=== PATIENT | female | born 1995 | race Caucasian/White ===

== ENCOUNTER → 2019-02-23 | Outpatient (CLI) | payer SELFPAY ==
--- NOTE | 2019-02-23 06:40 | MRI_ITS ---
STUDY: MRI RIGHT KNEE REASON FOR EXAM: Medial knee pain, injury 02/20/2019, 2 prior surgeries: lateral release and plica removal. TECHNIQUE: Standardized fat and water weighted pulse sequences were obtained in all 3 orthogonal planes. COMPARISON: None. FINDINGS: Normal medial meniscus. Normal hyaline cartilage of the medial femorotibial compartment. Normal medial femoral condyle and tibial plateau. There is a mild sprain of the proximal medial collateral ligament (T2 coronal image 17). Normal distal semimembranosus, gracilis and semitendinosus tendons. Normal lateral meniscus. Normal hyaline cartilage of the lateral femorotibial compartment. There is a mild bone contusion of the posterior aspect of the lateral femoral condyle (T2 sagittal images 6, 7). Normal proximal tibiofibular articulation. Normal lateral collateral (fibular) ligament. Normal popliteus tendon. Normal biceps femoris tendon. Normal anterior cruciate ligament (ACL). Normal posterior cruciate ligament (PCL). Normal congruent patellofemoral articulation. Normal hyaline cartilage of the patellofemoral compartment. There are postoperative changes of the lateral patellar retinaculum. Normal visualized quadriceps tendon. Normal patellar tendon. There is postoperative scarring in Hoffa's fat pad. There is a minimal volume of fluid in the knee joint. The soft tissues are unremarkable. The otherwise visualized osseous structures are unremarkable. MRI/Lower Ext Joint Only (Routine) IMPRESSION: Mild sprain of the medial collateral ligament. Mild bone contusion of the lateral femoral condyle. Electronically Signed: Edy Moreira MD at 8:33 EDT Tel , Service support ,
== END | disposition home or self-care (01) ==
PROVIDERS: Family Provider Family Medicine; PCP Family Medicine; Referring Provider Physician Assistant; Visit Provider Physician Assistant
DX: S83.8X1A Sprain of other specified parts of right knee, initial encounter (principal)
CPT/HCPCS: 73721

== ENCOUNTER → 2021-04-01 | Outpatient (CLI) | payer OTHER, SELFPAY ==
[2021-04-01 14:42] VITALS: BMI 21.6
[2021-04-08 16:31] LABS: HPV Reflexed? NOT INDICATED
== END | disposition home or self-care (01) ==
PROVIDERS: PCP Family Medicine; Referring Provider Nurse Practitioner Women's Health; Visit Provider Nurse Practitioner Women's Health
DX: Z12.4 Encounter for screening for malignant neoplasm of cervix (principal)
CPT/HCPCS: 88175; G0145

== ENCOUNTER 2021-05-06 21:40 | Outpatient (RCR) | payer OTHER, SELFPAY | END 2021-05-30 23:59 | LOC: EMPH 21:40 | PROVIDERS: PCP Family Medicine; Visit Provider Family Medicine Geriatric Medicine | DX: Z03.818 Encounter for observation for suspected exposure to other biological agents ruled out (principal) | CPT/HCPCS: 87426 ==

== ENCOUNTER → 2021-08-04 10:18 | Outpatient (CLI) | payer OTHER, SELFPAY | PROVIDERS: PCP Family Medicine; Referring Provider Nurse Practitioner Women's Health; Visit Provider Nurse Practitioner Women's Health | DX: N97.0 Female infertility associated with anovulation (principal) | CPT/HCPCS: 36415 ==

== ENCOUNTER → 2021-08-22 10:00 | Outpatient (CLI) | payer OTHER, SELFPAY ==
[2021-08-22 11:45] LABS: Progesterone Level 5.68 ng/mL (See Comment)
== END ==
PROVIDERS: PCP Family Medicine; Referring Provider Nurse Practitioner Women's Health; Visit Provider Nurse Practitioner Women's Health
DX: N97.0 Female infertility associated with anovulation (principal)
CPT/HCPCS: 36415; 84144

== ENCOUNTER 2021-09-30 11:45 | Outpatient (CLI) | payer OTHER, SELFPAY ==
--- NOTE | 2021-09-30 12:25 | RAD_ITS ---
STUDY: HYSTEROSALPINGOGRAM. REASON FOR EXAM: Female, 26 years old. ENCOUNTER FOR PROCREATIVE MANAGEMENT, UNSPECIFIED Z31.9 FLUOROSCOPY TIME (if supplied): ( 15 seconds ) minutes/seconds. 2 images were obtained. TECHNIQUE: A hysterosalpingogram was performed by the pcb design engineer. Imaging was provided. COMPARISON: None. FINDINGS: The uterus is unremarkable. Both fallopian tubes are patent with free spill. RAD/Salpingogram IMPRESSION: Both fallopian tubes are patent with free spill. Electronically Signed: Ross Valerio MD at 14:05 EST ,
--- NOTE | 2021-09-30 16:37 | OP.PCM_ITS ---
Problems Associated Problem List Diagnoses (1) Infertility: Operative Report Date of Procedure: 09/30/21 Preop diagnosis: Infertility Postop diagnosis: Same plus bilateral tubal patency Procedure: Hysterosalpingogram Surgeon: Chani Bone Implantable devices: None Complications: None Findings: Bilateral tubal patency and normal uterine cavity Operative details: Patient was taken to the x-ray room and was placed on the x- ray table and was in the dorsal lithotomy position. Speculum was placed in the vagina and the cervix prepped with Betadine and the HSG catheter was easily introduced into the uterus and speculum removed. Radiologist was brought in and while pushing radiopaque dye into the uterus via the HSG catheter the radiologist took multiple images and views and confirmed bilateral tubal patency seen. No gross uterine filling defects or abnormalities were seen. All instruments removed from the vagina and the uterus without complication. Patient tolerated the procedure well. Multi Select Codes Urinary/Genital Urinary/Genital CPT Codes: 29536 HSG/SIS
== END 2021-09-30 23:59 | disposition short-term general hospital (02) ==
LOC: RAD 11:46
PROVIDERS: PCP Family Medicine; Referring Provider Obstetrics & Gynecology; Visit Provider Obstetrics & Gynecology
DX: N97.9 Female infertility, unspecified (principal)
CPT/HCPCS: 58340; 74740; Q9967

== ENCOUNTER 2021-10-03 10:24 | Outpatient (CLI) | payer OTHER, SELFPAY ==
[2021-10-03 10:47] LABS: Absolute Lymphocyte Count 1.99 X10^3/uL (0.83-4.51); Absolute Neutrophil Count 3.2 X10^3/uL (2.0-7.7); Basophil# 0.06 X10^3/uL; Eosinophil# 0.38 X10^3/uL; Eosinophils% 6.3 % (0-5); Hematocrit 40.9 % (37-47); Hemoglobin 13.5 g/dL (12.0-15.0); Lymphocyte # 1.99 X10^3/ul (0.83-4.51); Lymphocyte % 32.8 % (19-41); Mean Corpuscular Hgb 30.1 pg (27.0-32.0); Mean Corpuscular Volume 91.1 fL (81-99); Mean Platelet Vol. 9.3 fl (6.2-12.0); Monocyte# 0.42 X10^3/uL; Monocyte% 6.9 % (0-10); NRBC Flagged by Analyzer 0 % (0-5); Neutrophil # 3.19 X10^3/uL (2.7-7.7); Neutrophil % 52.7 % (47-70); Platelet Count 282 K/mm3 (150-450); RBC Distribution Width SD 40.2 fl (35.1-43.9); Red Blood Count 4.49 M/mm3 (4.2-5.4); White Blood Count 6.1 K/mm3 (4.4-11.0)
[2021-10-03 11:14] LABS: T4 Free Direct 1.01 ng/dL (0.76-1.46); Thyroid Stim Hormone (TSH) 1.31 uIU/mL (0.358-3.74)
== END 2021-10-03 23:59 | disposition short-term general hospital (02) ==
PROVIDERS: Nurse Practitioner Women's Health; PCP Family Medicine; Referring Provider Obstetrics & Gynecology; Visit Provider Obstetrics & Gynecology
DX: N92.6 Irregular menstruation, unspecified (principal); N93.9 Abnormal uterine and vaginal bleeding, unspecified
CPT/HCPCS: 36415; 84439; 84443; 85025

== ENCOUNTER → 2022-05-19 | Outpatient (CLI) | payer OTHER, SELFPAY ==
[2022-05-19 16:17] LABS: Absolute Lymphocyte Count 2.58 X10^3/uL (0.83-4.51); Absolute Neutrophil Count 9.2 X10^3/uL (2.0-7.7); Basophil# 0.06 X10^3/uL; Basophil% 0.5 % (0-1); Eosinophil# 0.66 X10^3/uL; Hemoglobin 13.1 g/dL (12.0-15.0); Lymphocyte # 2.58 X10^3/ul (0.83-4.51); Lymphocyte % 19.5 % (19-41); Mean Corp Hgb Conc 34.5 g/dL (32-36); Mean Corpuscular Hgb 31.3 pg (27.0-32.0); Mean Corpuscular Volume 90.7 fL (81-99); Mean Platelet Vol. 9.3 fl (6.2-12.0); Monocyte# 0.66 X10^3/uL; NRBC Flagged by Analyzer 0 % (0-5); Neutrophil # 9.22 X10^3/uL (2.7-7.7); Neutrophil % 69.6 % (47-70); Platelet Count 289 K/mm3 (150-450); RBC Distribution Width CV 11.9 % (11.6-14.6); RBC Distribution Width SD 39.5 fl (35.1-43.9); Red Blood Count 4.19 M/mm3 (4.2-5.4); White Blood Count 13.2 K/mm3 (4.4-11.0)
[2022-05-19 17:05] LABS: NATERA MAILED SPECIMEN
[2022-05-19 18:23] LABS: Amphetamine Urine VISTA NEGATIVE (<1000 ng/mL); Barbiturate Urine VISTA NEGATIVE (< 200 ng/mL); Benzodiazepine Urine VISTA NEGATIVE (< 200 ng/mL); Cocaine Urine VISTA NEGATIVE (< 300 ng/mL); Ecstacy Urine VISTA NEGATIVE (< 500 ng/mL); Methadone Urine VISTA NEGATIVE (< 300 ng/mL); PCP Urine VISTA NEGATIVE (< 25 ng/mL); THC Urine VISTA NEGATIVE (< 50 ng/mL); Vista UDS pH Range 6
[2022-05-20 09:04] LABS: HIV - WCH Non-Reactive (Nonreactive); Hepatitis B Surface Antigen Non-Reactive (Nonreactive); Hepatitis C Antibody Non-Reactive (Nonreactive); Rubella IgG Reactive (Nonreactive); Syphilis Antibodies Non-reactive
[2022-05-21 22:07] LABS: Chlamydia By Nucleic Acid AMP Negative (Negative)
[2022-05-22 08:26] LABS: Gonococcus By Nucleic Acid AMP Negative (Negative)
== END | disposition home or self-care (01) ==
PROVIDERS: PCP Family Medicine; Referring Provider Obstetrics & Gynecology; Visit Provider Obstetrics & Gynecology
DX: O09.91 Supervision of high risk pregnancy, unspecified, first trimester (principal); Z3A.00 Weeks of gestation of pregnancy not specified
CPT/HCPCS: 36415; 80307; 85025; 86703; 86762; 86780; 86803; 86850; 86900; 86901; 87086; 87340; 87491; 87591

== ENCOUNTER → 2022-06-16 | Outpatient (CLI) | payer OTHER, SELFPAY | END | disposition home or self-care (01) | PROVIDERS: PCP Family Medicine; Referring Provider Registered Nurse; Visit Provider Registered Nurse | DX: Z36.9 Encounter for antenatal screening, unspecified (principal) | CPT/HCPCS: 36415 ==

== ENCOUNTER 2022-07-16 07:50 | Outpatient (CLI) | payer OTHER, SELFPAY ==
--- NOTE | 2022-07-16 07:51 | US_ITS ---
STUDY: SECOND AND THIRD TRIMESTER OBSTETRICAL ULTRASOUND REASON FOR EXAM: Female, 27 years old anatomy LMP: 02/28/2022. TECHNIQUE: Transabdominal and Transvaginal TECHNICAL QUALITY: Adequate. PRIOR ULTRASOUND: None. FINDINGS: There is a single intrauterine fetus. The fetus is in a breech presentation. There is demonstrated cardiac activity with a heart rate of 137 bpm. There is a normal amniotic fluid volume. The largest amniotic fluid pocket measures 4.7 cm x 4.3 cm. The amniotic fluid index (JORDAN) is within normal limits. The placenta is anterior in location and is not low lying. There are Grade 0 placental changes. The cervix measures 3.9 cm in length. The bilateral adnexal regions are normal. BIOMETRY: BPD: 4.39 cm: 19 weeks, 2 days HC: 17.24 cm: 19 weeks, 6 days AC: 13.92 cm: 19 weeks, 2 days FL: 3.17 cm: 9 weeks, 6 days CI: 72% FL/BPD: 72% FL/HC: FL/AC: 23% HC/AC: 1.24 age by current US: 19 weeks, 4 days. KELSEY by current US: 12/06/2022. Estimated weight: 298 grams, +/- 45 grams, 35 %. Age by LMP: 19 weeks, 5 days. KELSEY by LMP: 12/05/2022. ANATOMY: Gender: Female Cranium: Normal lateral ventricles. Normal choroid plexus. Normal cerebellum. Normal cisterna magna. Normal face, nose and lips. Chest: Normal 4-chamber heart. Abdomen/Pelvis: Normal diaphragm. Normal stomach. Normal abdominal wall. Normal cord insertion. Normal 3 vessel cord. Normal kidneys. Normal bladder. Spine: Normal cervical spine. Normal thoracic spine. Normal lumbar spine. Normal sacrum. Extremities: Normal bilateral upper extremities. Normal bilateral lower extremities. IMPRESSION: Single live intrauterine gestation with a mean gestational age of 19 weeks and 4 days. Electronically Signed: Ross Valerio MD at 15:04 EST , STUDY: FIRST TRIMESTER OBSTETRICAL ULTRASOUND REASON FOR EXAM: Female, 27 years old . Cervical length measurement. LMP: 02/28/2022 TECHNIQUE: Transvaginal TECHNICAL QUALITY: Adequate. PRIOR ULTRASOUND: None. FINDINGS: Cervical length measures 3.9 cm. US/OB Anatomy Scan IMPRESSION: Cervical length measures 3.9 cm. Electronically Signed: Ross Valerio MD at 15:05 EST ,
== END 2022-07-16 23:59 | disposition home or self-care (01) ==
LOC: OPUS 07:50
PROVIDERS: PCP Family Medicine; Visit Provider Obstetrics & Gynecology
DX: O09.91 Supervision of high risk pregnancy, unspecified, first trimester (principal); Z3A.00 Weeks of gestation of pregnancy not specified
CPT/HCPCS: 76805; 76817

== ENCOUNTER 2022-08-22 18:55 | Outpatient (CLI) | payer OTHER, SELFPAY ==
[2022-08-22 19:13] VITALS: BMI 25.5
[2022-08-22 19:21] VITALS: TEMP 37.2
[2022-08-22 19:22] VITALS: BP 106/62; PULSE 88; PULSE 89; O2SAT 99
[2022-08-22 20:24] LABS: Color, Urine Yellow (Yellow); Glucose, Dipstick Normal (Normal); Ketone-Dipstick Negative (Negative); Leukocyte Esterase-Dipstick 100 /ul (Negative); Nitrite-Dipstick Negative (Negative); Occult Blood-Urine Negative /ul (Negative); Protein-Dipstick Negative (Negative); Urine Bilirubin Dipstick Negative (Negative); Urine Clarity Clear (Clear); Urine Urobilinogen Normal (Normal)
--- NOTE | 2022-08-22 21:09 | OB.TRI.HP_ITS ---
HPI - General General Date of Admission: 09/22/22 HPI Narrative HIEU HERNANDEZ, is a 27 y/o @ 25 weeks gestation who presents to L&D triage for evaluation of lower abdominal discomfort. She denies loss of fluid, vaginal bleeding, contractions, or decreased movement. Maternal Data Information KELSEY Calculator Estimated Delivery Date Method Current WG Current Estimate 12/05/22 LMP (Certain) 26w 6d Other Estimates 12/01/22 Ultrasound #1 27w 3d PFSH PFSH Home Medications docosahexaenoic acid 200 mg capsule ( DHA) mg PO 04/01/21 [History Last Taken Unknown] lactobacillus combination no.4 3 billion cell capsule (Probiotic) 3,000 mmu cells PO DAILY Check with primary doctor 05/19/22 [History Last Taken 08/21/22 21:30] famotidine 40 mg tablet (Pepcid) 40 mg PO QHS #30 tabs 08/21/22 [Rx Last Taken Unknown] Allergy/AdvReac Type Severity Reaction Status Date / Time No Known Allergies Allergy Verified 08/22/22 19:35 Family History Grandfather Lung cancer Surgical History H/O knee surgery Social History household members: spouse current occupational status: employed current occupation: [employer] - [place] history of recent travel: No sexually active: Yes Smoking Status: Never smoker alcohol intake: current alcohol intake frequency: holidays/special occasions only details: not while substance use type: does not use caffeine: Yes what type of physical activity do you participate in: walking seatbelt use: always do you feel safe at home: Yes additional social history: - Elian History 1 Elective abortions Hx Para Spontaneous abortions Hx # Term Pregnancies Ectopic pregnancies Hx # Pregnancies Multiple births # of living children Visit Details Expected Delivery Route/Plan Labor Preferences- CB/BF classes: planning, and just breathe labor support person: Elian labor intervention preferences: minimal intervention, hydrotherapy. fine with touch. pain management options preferred: avoid if all possible. cut cord/dad catch: yes : yes PP control planned: discussed possible routes of delivery and associated risks: [] special requests: [] Plans Covid status: declined Flu vaccine: discussed, declined Tdap vaccine: [] Rhogam: [] LARC form signed: [] Problem list reviewed and updated with the most current plan of care details and appropriate orders placed. Relevant counseling for the gestational age provided. Continue routine care and follow up unless otherwise noted in visit notes/problem list details OB Flowsheet Initial Weight: Not Recorded Date -?-?-?-?-?-?-?-?-?-?-?-?- EGA Weight BP Urine Prot -?-?-?-?-?-?-?-?-?-?-?-?- Glucose FHR FuHt Pres Dilation -?-?-?-?-?-?-?-?-?-?-?-?- Effaced St Visit Note 05/19/22 -?-?-?-?-?-?-?-?-?-?-?-?- 11w 3d 151 lb 106/68 -?-?-?-?-?-?-?-?-?-?-?-?- 160 -?-?-?-?-?-?-?-?-?-?-?-?- SM- CRL 5.8cm co ns with LMP 06/16/22 -?-?-?-?-?-?-?-?-?-?-?-?- 15w 3d 154 lb 4 oz 114/67 Nega tive -?-?-?-?-?-?-?-?-?-?-?-?- Negative 143 16 -?-?-?-?-?-?-?-?-?-?-?-?- LC- no vb/crampi ng. normal NOB labs. discussed and accepted AFP. to start Mg oxide for headaches. anatomy scheduled. 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 08/11/22 -?-?-?-?-?-?-?-?-?-?-?-?- 23w 3d 168 lb 122/78 Negative -?-?-?-?-?-?-?-?-?-?-?-?- Negative 140 23 -?-?-?-?-?-?-?-?-?-?-?-?- SM- discussed GC T screening options patient may elect for [place] due to not wanting dye. SM- discussed GCT screening options patient may elect for [place] due to not wanting dye. discussed birthing preferences ROS Constitutional Constitutional: Reports systems reviewed and no addt'l complaints, except as documented Gastrointestinal Gastrointestinal: Denies bloating, constipation, cramping, diarrhea, nausea or vomiting Genitourinary Genitourinary: Reports other Details: Denies vaginal odor, vaginal bleeding, or vaginal discharge ; Denies difficulty urinating or flank pain NST FHR Rate Baby A Baseline: 140 Variability:: Moderate Accelerations:: 15 x 15 Decelerations:: None NST Reactive:: Yes FHR Category:: Category I Assessment & Plan (1) : QUALIFIERS: Weeks of gestation: 19 weeks Qualified Code(s): Z3A.19 - 19 weeks gestation of COMMENT: carrier non significant done at [facility]. NIPT low risk (2) Supervision of high risk in first trimester: COMMENT: PRR KELSEY 12/05/22 girl WrenSpouse: Elian (3) UTI in , antepartum: COMMENT: culture pending. will start macrobid based on symptoms and 100+ leuks in UA PLAN: dc home with macrobid until culture comes back at least pt feels comfortable with this plan and feels better with tylenol Charges/Coding Multi Select Codes Urinary/Genital Urinary/Genital CPT Codes: 08626-82 non-stress test Interp
[2022-08-22] MEDS: Nitrofurantoin Macrocrystals 100 MG Capsule PO (21:12)
== END 2022-08-22 21:15 | disposition home or self-care (01) ==
LOC: WPOUT 19:04 → WP 19:04
PROVIDERS: PCP Family Medicine; Visit Provider Obstetrics & Gynecology
DX: O23.42 Unspecified infection of urinary tract in pregnancy, second trimester (principal); R51.9 Headache, unspecified; Z3A.25 25 weeks gestation of pregnancy
CPT/HCPCS: 59025; 59050; 81002; 87086; 99218; G0378

== ENCOUNTER → 2022-09-04 | Outpatient (CLI) | payer OTHER, SELFPAY ==
--- NOTE | 2022-09-04 08:18 | US_ITS ---
STUDY: ABDOMINAL ULTRASOUND - RIGHT UPPER QUADRANT REASON FOR VISIT: Female, 27 years old ruq pain-27 wks preg TECHNIQUE: Ultrasound evaluation of the right upper quadrant was performed with real-time and static duncan-scale imaging. TECHNICAL QUALITY: Adequate. COMPARISON: None. FINDINGS: Liver: The liver measures 15.3 cm. There is normal echogenicity of the liver. The bile ducts are within normal limits. There is hepatic color flow. The direction of portal flow is hepatopetal. There is no demonstrated mass lesion. Gallbladder: Normal distended gallbladder. The gallbladder wall measures 2 mm. There is a negative sonographic Palm''s sign. There is no pericholecystic fluid. There is biliary sludge dependent within the gallbladder. Common Bile Duct (C.B.D.): The common bile duct measures 3 mm. Pancreas: Normal size of the head, body and tail of the pancreas. There is normal echogenicity of the pancreas. There is no demonstrated pancreatic mass or cyst. Right Kidney: Normal size of the right kidney. The right kidney measures 11.0 cm. Normal renal cortex. The right cortex measures 1.5 cm. There is no demonstrated renal mass or cyst. There is no right hydronephrosis. US/Abdomen Limited IMPRESSION: Gallbladder sludge. Electronically Signed: Barry Piña MD at 9:10 EST ,
== END | disposition home or self-care (01) ==
LOC: US 08:13
PROVIDERS: PCP Family Medicine; Referring Provider Registered Nurse; Visit Provider Registered Nurse
DX: R10.11 Right upper quadrant pain (principal); O09.90 Supervision of high risk pregnancy, unspecified, unspecified trimester
CPT/HCPCS: 76705

== ENCOUNTER → 2022-09-09 | Outpatient (CLI) | payer OTHER, SELFPAY ==
[2022-09-09 09:24] LABS: Absolute Lymphocyte Count 1.66 X10^3/uL (0.83-4.51); Absolute Neutrophil Count 10.7 X10^3/uL (2.0-7.7); Basophil# 0.07 X10^3/uL; Basophil% 0.5 % (0-1); Eosinophil# 0.32 X10^3/uL; Eosinophils% 2.3 % (0-5); Hemoglobin 11.5 g/dL (12.0-15.0); Lymphocyte # 1.66 X10^3/ul (0.83-4.51); Mean Corp Hgb Conc 32.9 g/dL (32-36); Mean Corpuscular Hgb 30.9 pg (27.0-32.0); Mean Corpuscular Volume 94.1 fL (81-99); Monocyte# 0.78 X10^3/uL; Monocyte% 5.6 % (0-10); NRBC Flagged by Analyzer 0 % (0-5); Neutrophil # 10.71 X10^3/uL (2.7-7.7); Neutrophil % 77.4 % (47-70); Platelet Count 249 K/mm3 (150-450); RBC Distribution Width CV 12.7 % (11.6-14.6); RBC Distribution Width SD 43.8 fl (35.1-43.9); Red Blood Count 3.72 M/mm3 (4.2-5.4); White Blood Count 13.8 K/mm3 (4.4-11.0)
[2022-09-09 09:33] LABS: Glucose Challenge Gest 1H 50g 122 mg/dL (70-140)
[2022-09-09 11:02] LABS: HIV - WCH Non-Reactive (Nonreactive); Syphilis Antibodies Non-reactive
== END | disposition home or self-care (01) ==
LOC: PAVLAB 09:01
PROVIDERS: PCP Family Medicine; Referring Provider Obstetrics & Gynecology; Visit Provider Obstetrics & Gynecology
DX: O09.91 Supervision of high risk pregnancy, unspecified, first trimester (principal); Z13.1 Encounter for screening for diabetes mellitus
CPT/HCPCS: 36415; 82950; 85025; 86703; 86780

== ENCOUNTER → 2022-09-18 | Outpatient (CLI) | payer OTHER, SELFPAY ==
--- NOTE | 2022-09-18 12:20 | US_ITS ---
STUDY: SECOND AND THIRD TRIMESTER OBSTETRICAL ULTRASOUND - LIMITED REASON FOR EXAM: Female, 27 years old Nuchal cord LMP: 02/28/2022. PRIOR ULTRASOUND: Comparison is made with prior study 07/16/2022. TECHNIQUE: Transabdominal TECHNICAL QUALITY: Adequate. FINDINGS: There is a single intrauterine fetus. The fetus is in a cephalic presentation. There is demonstrated cardiac activity with a heart rate of 148 bpm. There is a normal amniotic fluid volume. The largest amniotic fluid pocket measures 15.5 cm. The amniotic fluid index (JORDAN) is 15.5 cm. The placenta is anterior in location and is not low lying. There are Grade 1 placental changes. The cervix measures 3.4 cm in length. There is evidence of a complete nuchal cord. BIOMETRY: BPD: 7.3 cm: 29 weeks, 1 days HC: 27.1 cm: 29 weeks, 4 days AC: 25.1 cm: 29 weeks, 2 days FL: 5.5 cm: 28 weeks, 6 days Age by LMP: 28 weeks, 6 days. KELSEY by LMP: 12/06/2019. age by prior US: 28 weeks, 5 days. KELSEY by prior US: 12/06/2022. age by current US: 29 weeks, 0 days. KELSEY by current US: 12/04/2022. Estimated weight: 1356 grams, +/- 203 grams, 50 percentile. US/OB Limited With Biometrics IMPRESSION: Single live intrauterine gestation with a mean gestational age of 28 weeks and 5 days and measurements obtained today. The measurements obtained today fall within the normal expected range. Complete nuchal cord. Electronically Signed: Ross Valerio MD at 14:54 EST ,
== END | disposition home or self-care (01) ==
PROVIDERS: PCP Family Medicine; Visit Provider Nurse Practitioner Women's Health
DX: Z34.93 Encounter for supervision of normal pregnancy, unspecified, third trimester (principal); Z3A.28 28 weeks gestation of pregnancy
CPT/HCPCS: 76816

== ENCOUNTER 2022-09-21 14:35 | Outpatient (CLI) | payer OTHER, SELFPAY ==
[2022-09-21 14:59] VITALS: BP 107/62; PULSE 94; TEMP 37.1; O2SAT 98
[2022-09-21 15:05] VITALS: BMI 27.4
[2022-09-21 15:36] LABS: Color, Urine Straw (Yellow); Glucose, Dipstick Normal (Normal); Ketone-Dipstick Negative (Negative); Leukocyte Esterase-Dipstick Negative /ul (Negative); Nitrite-Dipstick Negative (Negative); Occult Blood-Urine Negative /ul (Negative); Protein-Dipstick Negative (Negative); Specific Gravity, Urine 1.005 (1.002-1.030); Urine Bilirubin Dipstick Negative (Negative); Urine Clarity Clear (Clear); Urine Urobilinogen Normal (Normal)
--- NOTE | 2022-09-21 16:00 | OB.TRI.HP_ITS ---
HPI - General HPI Narrative HIEU HERNANDEZ, is a 27 F who presents at 29+2 with mild vaginal bleeding and cramping. noticed red bleeding while wiping. does not fill a pad, no clots noted. no recent sexual activity. + movement. no lof. Maternal Data Information KELSEY Calculator Estimated Delivery Date Method Current WG Current Estimate 12/05/22 LMP (Certain) 29w 5d Other Estimates 12/01/22 Ultrasound #1 30w 2d PFSH PFSH Home Medications docosahexaenoic acid 200 mg capsule ( DHA) mg PO 04/01/21 [History Last Taken Unknown] lactobacillus combination no.4 3 billion cell capsule (Probiotic) 3,000 mmu cells PO DAILY Check with primary doctor 05/19/22 [History Last Taken 08/21/22 21:30] famotidine 40 mg tablet (Pepcid) 40 mg PO QHS #30 tabs 08/21/22 [Rx Last Taken Unknown] Allergy/AdvReac Type Severity Reaction Status Date / Time No Known Allergies Allergy Verified 09/22/22 14:21 Family History Grandfather Lung cancer Surgical History H/O knee surgery Social History household members: spouse current occupational status: employed current occupation: [employer] - [place] history of recent travel: No sexually active: Yes Smoking Status: Never smoker alcohol intake: current alcohol intake frequency: holidays/special occasions only details: not while substance use type: does not use caffeine: Yes what type of physical activity do you participate in: walking seatbelt use: always do you feel safe at home: Yes additional social history: - Elian History 1 Elective abortions Hx Para Spontaneous abortions Hx # Term Pregnancies Ectopic pregnancies Hx # Pregnancies Multiple births # of living children Visit Details Expected Delivery Route/Plan Labor Preferences- CB/BF classes: planning, and just breathe labor support person: Elian labor intervention preferences: minimal intervention, hydrotherapy. fine with touch. pain management options preferred: avoid if all possible. cut cord/dad catch: yes : yes PP control planned: discussed possible routes of delivery and associated risks: [] special requests: [] Plans Covid status: declined Flu vaccine: discussed, declined Tdap vaccine: declines Rhogam: NA LARC form signed: yes Problem list reviewed and updated with the most current plan of care details and appropriate orders placed. Relevant counseling for the gestational age provided. Continue routine care and follow up unless otherwise noted in visit notes/problem list details OB Flowsheet Initial Weight: Not Recorded Date -?-?-?-?-?-?-?-?-?-?-?-?- EGA Weight BP Urine Prot -?-?--?-?-?-?-?-?-?-?-?-?- Glucose FHR FuHt Pres Dilation -?-?-?-?-?-?-?-?--?-?-?-?- Effaced St Visit Note 05/19/22 -?-?-?-?-?-?-?-?-?-?-?-?- 11w 3d 151 lb 106/68 -?-?-?-?-?-?-?-?-?-?-?-?- 160 -?-?-?-?-?-?-?-?-?-?-?-?- SM- CRL 5.8cm co ns with LMP 06/16/22 -?-?-?-?-?-?-?-?-?-?-?-?- 15w 3d 154 lb 4 oz 114/67 Nega tive -?-?-?-?-?-?-?-?-?-?-?-?- Negative 143 16 -?-?-?-?-?-?-?-?-?-?-?-?- LC- no vb/crampi ng. normal NOB labs. discussed and accepted AFP. to start Mg oxide for headaches. anatomy scheduled. 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 08/11/22 -?-?-?-?-?-?-?-?-?-?-?-?- 23w 3d 168 lb 122/78 Negative -?-?-?-?-?-?-?-?-?-?-?-?- Negative 140 23 -?-?-?-?-?-?-?-?-?-?-?-?- SM- discussed GC T screening options patient may elect for [place] due to not wanting dye. SM- discussed GCT screening options patient may elect for [place] due to not wanting dye. discussed birthing preferences 09/09/22 -?-?-?-?-?-?-?-?-?-?-?-?- 27w 4d 170 lb 2 oz 98/66 Nega tive -?-?-?-?-?-?-?-?-?-?-?-?- Negative 145 27 -?-?-?-?-?-?-?-?-?-?-?-?- -No Vb, LOF. G ood FM. Doing kick cts due to nuchal cord on cosmetic US. [facility] US ordered to confirm. Larc. Normal 28 wk labs 09/22/22 -?-?-?-?-?-?-?-?-?-?-?-?- 29w 3d 177 lb 8 oz 118/72 Nega tive -?-?-?-?-?-?-?-?-?-?-?-?- Negative 146 30 -?-?-?-?-?-?-?-?-?-?-?-?- MH-NO VB since p rior to WP visit yesterday. Good FM. Reviewed US w/nuchal cord. Enc kick counts NST FHR Rate Baby A Baseline: 130-140 Variability:: Moderate Accelerations:: 10 x 10 Decelerations:: None NST Reactive:: Yes FHR Category:: Category I Uterine Activity:: no ctx noted Assessment & Plan (1) Vaginal bleeding during : PLAN: Patient presents for triage evaluation secondary to mild/scant vaginal bleeding FHT: Moderate variability reactive no decelerations category I tracing [place]: no Contractions Assessment and plan: Reactive NST, reassuring maternal and status patient discharged to home to follow-up in office. See problem list details for additional plan information. bleeding precautions provided. no further bleeding. reactive NST. to follow up in office if continues.
== END 2022-09-21 16:10 | disposition home or self-care (01) ==
LOC: WPOUT 14:48 → WP 14:49
PROVIDERS: PCP Family Medicine; Visit Provider Registered Nurse
DX: O99.891 Other specified diseases and conditions complicating pregnancy (principal); O46.90 Antepartum hemorrhage, unspecified, unspecified trimester; R25.2 Cramp and spasm
CPT/HCPCS: 59025; 59050; 81002

== ENCOUNTER → 2022-11-12 | Outpatient (CLI) | payer OTHER, SELFPAY ==
--- NOTE | 2022-11-12 10:09 | US_ITS ---
STUDY: ULTRASOUND BREAST - RIGHT REASON FOR EXAM: Female, 27 years old. Palpable lump, patient TECHNIQUE: Axial and longitudinal images of the RIGHT breast were performed with a high resolution ultrasound transducer. # OF IMAGES: 9 COMPARISON: None. FINDINGS: RIGHT Breast: Focused sonographic evaluation the area of concern shows only normal dense fibroglandular tissue. There is no suspicious shadowing solid lesion, architectural distortion, or clustered shadowing calcifications. US/Breast Limited Unilateral IMPRESSION: No suspicious sonographic findings ASSESSMENT CATEGORY: BIRADS Category 1: Negative. A letter regarding these results will be sent to the patient by the facility within 30 days. Electronically Signed: Brian Nash MD at 11:11 EDT ,
== END | disposition home or self-care (01) ==
PROVIDERS: PCP Family Medicine; Referring Provider Obstetrics & Gynecology; Visit Provider Obstetrics & Gynecology
DX: O09.91 Supervision of high risk pregnancy, unspecified, first trimester (principal); Z3A.00 Weeks of gestation of pregnancy not specified; O92.29 Other disorders of breast associated with pregnancy and the puerperium
CPT/HCPCS: 76642; 87081

== ENCOUNTER 2022-11-25 18:50 | Outpatient (CLI) | payer OTHER, SELFPAY ==
[2022-11-25 18:58] VITALS: BMI 29.2
[2022-11-25 19:02] VITALS: BP 102/55; PULSE 99; TEMP 36.7; O2SAT 99
--- NOTE | 2022-11-26 07:56 | OB.TRI.PN ---
Progress Notes Date of Service: 11/25/22 Progress Note: Patient presents for triage evaluation secondary to decreased movement FHT: 135 Moderate variability reactive no decelerations category I tracing [place]: no Contractions Assessment and plan: Reactive NST, reassuring maternal and status patient discharged to home to follow-up at next appointment. See problem list details for additional plan information. Charges/Coding Procedures Urinary/Genital [id number]: No Charge Multi Select Codes Urinary/Genital Urinary/Genital CPT Codes: 24089-32 non-stress test Interp Assessment & Plan (1) : QUALIFIERS: Weeks of gestation: 37 weeks Qualified Code(s): Z3A.37 - 37 weeks gestation of COMMENT: GBS negative. carrier non significant done at I. NIPT low risk . nl anatomy. PLAN: follow up at next appointment (2) Supervision of high risk in first trimester: COMMENT: PRR KELSEY 12/05/22 girl WrenSpouse: Elian
[2022-12-04 03:35] VITALS: BP 122/82; PULSE 99
[2022-12-04 03:37] VITALS: TEMP 36.6; O2SAT 100
[2022-12-04 03:44] VITALS: PULSE 107; O2SAT 100
== END 2022-11-25 19:47 | disposition home or self-care (01) ==
LOC: WPOUT 18:55 → WP 18:55
PROVIDERS: PCP Family Medicine; Visit Provider Advanced Practice Midwife
DX: O36.8130 Decreased fetal movements, third trimester, not applicable or unspecified (principal); Z3A.37 37 weeks gestation of pregnancy
CPT/HCPCS: 59025; 59050; 99221; G0378

== ENCOUNTER 2022-12-04 04:45 | Inpatient (IN) | payer OTHER, SELFPAY ==
[2022-12-04] VITALS (49 sets, daily range): BP systolic 102–153; BP diastolic 56–79; PULSE 74–113; RESP 16–18; TEMP 36.2–37.2; O2SAT 98–100; BMI 29.1
[2022-12-04] MEDS: Lactated Ringers 1,000 ML 50 ML IV (05:00)
[2022-12-04 06:00] LABS: Absolute Lymphocyte Count 2.49 X10^3/uL (0.83-4.51); Basophil# 0.09 X10^3/uL; Basophil% 0.5 % (0-1); Eosinophil# 0.42 X10^3/uL; Eosinophils% 2.4 % (0-5); Hematocrit 39.6 % (37-47); Hemoglobin 13.1 g/dL (12.0-15.0); Lymphocyte # 2.49 X10^3/ul (0.83-4.51); Lymphocyte % 14.2 % (19-41); Mean Corp Hgb Conc 33.1 g/dL (32-36); Mean Corpuscular Hgb 30.8 pg (27.0-32.0); Mean Corpuscular Volume 93.2 fL (81-99); Mean Platelet Vol. 9.7 fl (6.2-12.0); Monocyte# 1.12 X10^3/uL; Monocyte% 6.4 % (0-10); NRBC Flagged by Analyzer 0 % (0-5); Neutrophil # 13.04 X10^3/uL (2.7-7.7); Neutrophil % 74.4 % (47-70); Platelet Count 309 K/mm3 (150-450); RBC Distribution Width CV 12.8 % (11.6-14.6); Red Blood Count 4.25 M/mm3 (4.2-5.4); White Blood Count 17.5 K/mm3 (4.4-11.0)
--- NOTE | 2022-12-04 07:26 | HP.PCM.OB_ITS ---
HPI - General General Date of Admission: 12/04/22 Date of Service: 12/04/22 HPI Narrative HIEU HERNANDEZ, is a 27 F at 39.6 weeks who presents for SROM at 0030 this am. Maternal Data Information KELSEY Calculator Estimated Delivery Date Method Current WG Current Estimate 12/05/22 LMP (Certain) 39w 6d Other Estimates 12/01/22 Ultrasound #1 40w 3d Final KELSEY: 12/05/22 Final KELSEY Source: US >20 weeks Gestational age: 39 weeks 6 days PFSH PFSH no medical history Home Medications lactobacillus combination no.4 3 billion cell capsule (Probiotic) 3,000 mmu cells PO DAILY Check with primary doctor 05/19/22 [History Last Taken 12/03/22] breast pump #1 ea 11/05/22 [Rx Last Taken Unknown] magnesium 200 mg tablet 200 mg PO DAILY 11/25/22 [History Last Taken 12/03/22] [id number] 1 mg tablet 1 tab PO DAILY 12/04/22 [History Last Taken 12/03/22] Allergy/AdvReac Type Severity Reaction Status Date / Time No Known Allergies Allergy Verified 11/28/22 10:00 Family History Grandfather Lung cancer Surgical History H/O knee surgery Social History household members: spouse current occupational status: employed current occupation: [employer] - [employer] [facility] [place] history of recent travel: No sexually active: Yes Smoking Status: Never smoker alcohol intake: current alcohol intake frequency: holidays/special occasions only details: not while substance use type: does not use caffeine: Yes what type of physical activity do you participate in: walking seatbelt use: always do you feel safe at home: Yes additional social history: - Elian History 1 Elective abortions Hx Para 0 Spontaneous abortions Hx # Term Pregnancies Ectopic pregnancies Hx # Pregnancies Multiple births # of living children Visit Details Expected Delivery Route/Plan Labor Preferences- CB/BF classes: planning, and just breathe labor support person: Elian labor intervention preferences: minimal intervention, hydrotherapy. fine with touch. pain management options preferred: avoid if all possible. cut cord/dad catch: yes : yes PP control planned: discussed possible routes of delivery and associated risks: [] special requests: [] Plans Covid status: declined Flu vaccine: discussed, declined Tdap vaccine: declines Rhogam: NA LARC form signed: yes Problem list reviewed and updated with the most current plan of care details and appropriate orders placed. Relevant counseling for the gestational age provided. Continue routine care and follow up unless otherwise noted in visit notes/problem list details OB Flowsheet Initial Weight: Not Recorded Date -?-?-?-?-?-?-?-?-?-?-?-?- EGA Weight BP Urine Prot -?-?-?-?-?-?-?-?-?-?-?-?- Glucose FHR FuHt Pres Dilation -?-?-?-?-?-?-?-?-?-?-?-?- Effaced St Visit Note 05/19/22 -?-?-?-?-?-?-?-?-?-?-?-?- 11w 3d 151 lb 106/68 -?-?-?-?-?-?-?-?-?-?-?-?- 160 -?-?-?-?-?-?-?-?-?-?-?-?- SM- CRL 5.8cm co ns with LMP 06/16/22 -?-?-?-?-?-?-?-?-?-?-?-?- 15w 3d 154 lb 4 oz 114/67 Nega tive -?-?-?-?-?-?-?-?-?-?-?-?- Negative 143 16 -?-?-?-?-?-?-?-?-?-?-?-?- LC- no vb/crampi ng. normal NOB labs. discussed and accepted AFP. to start Mg oxide for headaches. anatomy scheduled. 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 08/11/22 -?-?-?-?-?-?-?-?-?-?-?-?- 23w 3d 168 lb 122/78 Negative -?-?-?-?-?-?-?-?-?-?-?-?- Negative 140 23 -?-?-?-?-?-?-?-?-?-?-?-?- SM- discussed GC T screening options patient may elect for lemon false pass due to not wanting dye. SM- discussed GCT screening options patient may elect for lemon false pass due to not wanting dye. discussed birthing preferences 09/09/22 -?-?-?-?-?-?-?-?-?-?-?-?- 27w 4d 170 lb 2 oz 98/66 Nega tive -?-?-?-?-?-?-?-?-?-?-?-?- Negative 145 27 -?-?-?-?-?-?-?-?-?-?-?-?- MH-No Vb, LOF. Ryland aj FM. Doing kick cts due to nuchal cord on cosmetic US. [facility] US ordered to confirm. Mario Alberto. Normal 28 wk labs 09/22/22 -?-?-?-?-?-?-?--?-?-?-?-?- 29w 3d 177 lb 8 oz 118/72 Nega tive -?-?-?-?-?-?-?-?-?-?-?-?- Negative 146 30 -?-?-?-?-?-?-?-?-?-?-?-?- MH-NO VB since p rior to visit yesterday. Good FM. Reviewed US w/nuchal cord. Enc kick counts 10/06/22 -?-?-?-?-?-?-?-?-?-?-?-?- 31w 3d 176 lb 104/63 Negative -?-?-?-?-?-?-?-?-?-?-?-?- Negative 145 31 -?-?-?-?-?-?-?-?-?-?-?-?- Sm no vb lof goo d fm no rgular ctx 10/21/22 -?-?-?-?-?-?-?-?-?-?-?-?- 33w 4d 180 lb 4 oz 110/68 Nega tive -?-?-?-?-?-?-?-?-?-?-?-?- Negative 158 33 -?-?-?-?-?-?-?-?-?-?-?-?- MH-No VB,LOF. Go od FM. Denies concerns 11/05/22 -?-?-?--?-?-?-?-?-?-?-?-?- 35w 5d 183 lb 2 oz 110/72 Nega tive -?-?-?-?-?-?-?-?-?-?-?-?- Negative 144 36 -?-?-?-?-?-?-?-?-?-?-?-?- JV- no lof, vagi nal bleeding, or dec fm. pt feels a pea size lump on left breast. if feels somewhat solid and measures about 2mm in size to right of the right nipple. 11/12/22 -?-?-?-?-?-?-?-?-?-?-?-?- 36w 5d 185 lb 2 oz 107/71 Nega tive -?-?-?-?-?-?-?-?-?-?-?-?- Negative 143 36 Cephalic -?-?-?-?-?-?-?-?-?-?-?-?- LC- no lof/vb/ct x. good fm. obtaining breast us today. declined VE. LC- no lof/vb/ctx. good fm. obtaining breast us today. declined VE. GBS obtained 11/19/22 -?-?-?-?-?-?-?-?-?-?-?-?- 37w 5d 188 lb 6 oz 123/70 Nega tive -?-?-?-?-?-?-?-?-?-?-?-?- Negative 145 37 Cephalic -?-?-?-?-?-?-?-?-?-?-?-?- KW-no lof/vb. so me ctx noted over the last week. +FM. declined VE. GBS neg. labor precautions reviewed. 11/28/22 -?-?-?-?-?-?-?-?-?-?-?-?- 39w 0d 188 lb 6 oz 114/74 Nega tive -?-?-?-?-?-?-?-?-?-?-?-?- Negative 145 39 Cephalic -?-?-?-?-?-?-?-?-?-?-?-?- SM- no vb lof go od fm no regular ctx 12/04/22 -?-?-?-?-?-?-?-?-?-?-?-?- 39w 6d 191 lb 9.307 oz 117/ 74 130/77 -?-?-?-?-?-?-?-?-?-?-?-?- -?-?-?-?-?-?-?-?-?-?-?-?- NST FHR Rate Baby A Baseline: 140 Variability:: Moderate Accelerations:: 15 x 15 Decelerations:: None NST Reactive:: Yes FHR Category:: Category I Uterine Activity:: every 4-5 minutes ROS Constitutional Constitutional: Denies change in weight, fatigue, fever(s), headache(s), poor appetite or weakness Eyes Eyes: Denies blurry vision, change in vision, floaters, seeing flashes or spots in vision ENT HEENT: Denies dizziness, headache(s), loss taste/smell or sore throat Cardiovascular Cardiovascular: Denies chest pain, dizziness, dyspnea, irregular heart rhythm, lightheadedness, palpitations or rapid heart rate Respiratory/Chest Respiratory/Chest: Denies change in mental status, chest tightness, cough, dyspnea or breast pain Gastrointestinal Gastrointestinal: Denies anorexia, chewing difficulty, constipation, diarrhea or weight changes Genitourinary Genitourinary: Denies difficulty urinating, dysuria, flank pain, genital pain, urinary frequency or urinary urgency Musculoskeletal Musculoskeletal: Denies back pain, difficulty walking, extremity pain, joint pain, muscle cramps or muscle weakness Integumentary Integumentary: Denies lesions or unusual bruising Neurologic Neurologic: Denies abnormal movements, abnormal speech, dizziness, numbness, seizure-like activity, syncope or weakness Psychiatric Psychiatric: Denies behavioral changes, change in appetite, confusion, depression, homicidal ideation, suicidal ideation or suicidal thoughts Endocrine Endocrinology: Denies excessive sweating, polydipsia or polyuria Hematologic/Lymphatic Hematologic/Lymphatic: Denies anemia Allergic/Immunologic Allergic/Immunologic: Denies itchy eyes, lip swelling, throat swelling, tongue swelling or wheezing Vital Signs Vital Signs Vital Signs: 12/04/22 05:40 12/04/22 05:40 12/04/22 05:39 Temperature Temperature Source Tympanic Pulse Rate 74 Blood Pressure 117/74 BP Systolic 117 BP Diastolic 74 Pulse Ox 12/04/22 05:39 12/04/22 05:39 12/04/22 07:11 Temperature 97.8 F Temperature Source Pulse Rate Blood Pressure 130/77 H BP Systolic 130 BP Diastolic 77 Pulse Ox 100 12/04/22 07:11 12/04/22 07:10 12/04/22 07:09 Temperature Temperature Source Temporal Pulse Rate 88 Blood Pressure BP Systolic BP Diastolic Pulse Ox 98 12/04/22 07:09 Temperature 98.2 F Temperature Source Pulse Rate Blood Pressure BP Systolic BP Diastolic Pulse Ox Weight Weight: 191 lb 9.307 oz Body Mass Index (BMI) 29.1 Physical Exam Const alert, oriented x3 and no apparent distress General Appearance: cooperative Orientation / Consciousness: awake HEENT normocephalic Neck full ROM Lymph Lymphatic: no lymphadenopathy noted Chest inspection of chest normal Resp normal respiratory effort and normal air movement Effort and Inspection: able to speak in complete sentences and symmetric chest movement GI soft to palpation and non-tender Inspection: gravid Palpation: soft; Negative for tender external exam normal Manual OB Exam: estimated gestational size appropriate, presentation cephalic, dilated 5, effaced 80 and station -2 Amniotic Fluid: clear amniotic fluid and ROM+plus positive + Back/Spine normal to inspection Extremity normal to inspection and full ROM Skin no rashes or lesions noted Psych mental status grossly normal Appearance: grossly normal Speech: normal speech Labs Labs Labs: Blood Type O POSITIVE Antibody Screen NEGATIVE Hct 39.6 % (37-47) Hgb 13.1 g/dL (12.0-15.0) Obstetrics US Syphilis Total Ab Non-reactive Rubella IgG Antibody Reactive (Nonreactive) Hep Bs Antigen Non-Reactive (Nonreactive) Chlamydia DNA ([facility]) Negative (Negative) Neisseria gonorrhoeae DNA ([facility]) Negative (Negative) HIV 1&2 Antibody Non-Reactive (Nonreactive) Glucose 1 Hr 50 gm 122 mg/dL (70-140) Miscellaneous Test Assessment & Plan (1) : QUALIFIERS: Weeks of gestation: 39 weeks Qualified Code(s): Z3A.39 - 39 weeks gestation of COMMENT: GBS negative. carrier non significant done at [facility]. NIPT low risk . nl anatomy. (2) Supervision of high risk in first trimester: COMMENT: PRR KELSEY 12/05/22 girl WrenSpouse: Elian (3) Spontaneous rupture of amniotic membranes: COMMENT: 39.6 weeks (4) Spontaneous onset of labor: PLAN: Patient presents IAL with SROM, plan expectant management for , nipple stimulation, pitocin/AROM PRN if needed. Pain management: plans no epidural. GBS negative. Management of any complications: none I have reviewed the [facility] and made any clinically relevant updates. Plan of care reviewed with Dr Bone, she agrees with plan of care. Charges/Coding Procedures Urinary/Genital [id number]: No Charge
[2022-12-04 07:28] LABS: Syphilis Antibodies Non-reactive
[2022-12-04 08:06] LABS: ROM Patient Test POSITIVE (Negative)
[2022-12-04 08:09] LABS: ROM Internal Control Test YES-OK TO RESULT pt. (Internal QC)
--- NOTE | 2022-12-04 10:04 | PN_ITS ---
Progress Note Patient coping well with contractions. Desire unmedicated . Using Nitrious Oxide. 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
[2022-12-04] MEDS: LACTATED RINGERS 500 ML 999 ML IV (12:40)
[2022-12-04] MEDS: Lactated Ringers 1,000 ML 200 ML IV ×2 (13:15→15:24)
[2022-12-04] MEDS: fentaNYL-bupivacaine (epidural) 100 ML BAG EPIDURAL (13:34)
[2022-12-04] MEDS: Oxytocin 15 Units/NS 250ml 15 UNITS/250 ML IV.SOLN 2 UNITS IV (14:43)
--- NOTE | 2022-12-04 17:11 | OP.PCM_ITS ---
Assessment & Plan (1) Vaginal delivery: COMMENT: NICOLE/ELLIOT SROM 39.6 weeks Girl Sophie Breast Maternal Data Information KELSEY Calculator Estimated Delivery Date Method Current WG Current Estimate 12/05/22 LMP (Certain) 39w 6d Other Estimates 12/01/22 Ultrasound #1 40w 3d Final KELSEY: 12/05/22 Final KELSEY Source: US >20 weeks Gestational age: 39 weeks 6 days Vaginal Delivery Maternal Presentation Maternal Presentation: Spontaneous Rupture of Membranes Maternal Presentation: Patient began pushing and delivered the head in the RUDY presentation. The head was delivered atraumatically and a loose nuchal cord ?1 was identified and easily reduced over the infant's head. The anterior and posterior shoulders delivered without complication followed by the rest of the and the infant was placed on the maternal abdomen. Delayed cord clamping was employed for approximately 60 seconds. Cord was clamped and cut and gentle traction was applied to the cord and the placenta delivered spontaneously immediately following it was noted to be intact with three-vessel cord. The perineum and vagina were inspected and noted to have a first degree laceration, was repaired in usual fashion with a 3-0 Rapide. EBL was 100 cc. Patient and tolerated delivery well. Apgars 8/9 Operative Information Date of Procedure: 12/04/22 Pre-Operative Diagnosis: vaginal delivery of Post-Operative Diagnosis: vaginal delivery of Surgery / Procedure Performed: Spontaneous Vaginal Delivery Type of Anesthesia: Epidural Estimated Blood Loss: 100 Findings Presentation: Vertex Amniotic Membrane Rupture Type: Spontaneous Time of Membrane Rupture: 0030 Amniotic Fluid Description: Clear Placental Delivery Description: Spontaneous Placenta Disposition: [facility] Cord Vessel Description: 3 Vessels Cord Entanglement: Around neck x 1, loose Nuchal Cord Compression: Without compression Infant A Gender: Female (1 minute): 8 (5 minute): 9 Delayed Cord Clamping: Yes Post Vaginal Delivery Medications Given After Delivery: IV Pitocin Laceration: Perineal Extension/lac and 1st degree Complication Complications: None Multi Select Codes Urinary/Genital Urinary/Genital CPT Codes: 46772 Vaginal Delivery [facility]
[2022-12-04] MEDS: Oxytocin 15 Units/NS 250ml 15 UNITS/250 ML IV.SOLN 83 UNITS IV (17:15)
--- NOTE | 2022-12-04 17:20 | DCINST_ITS ---
Discharge Instructions Diet Discharge Diet: No restrictions Activity Discharge Activity: Return to Normal Activity May resume sexual activity in: 6-8 weeks Dressing / Incision Call your doctor if you observe: Fever of 101 or Higher, Coldness, Increased Pain, Numbness or Tingling, Change in Color, Inability to urinate, Inability to have a bowel movement, Using more than 1 pad per hour, Shortness of breath, Dizziness, Fainting spells, Swelling in the ankles, Chest pain, Increased palpitations (irregular heartbeat), Calf discomfort and Uncontrolled pain Follow Up Care Please Follow Up With: Lynnette Prado CNM When: Please call the office to schedule your follow up appointment in 6 weeks. If you had high blood pressure please call to schedule an appointment in 2 weeks. Test Results: Test results from this visit will be discussed in further detail at your follow- up appointment, if applicable. Discharge Plan Admission Admit Date/Time: 12/04/22 04:45 Attending Provider: Lynnette Prado Primary Care Provider: Rodrigo Ortiz Discharge Orders/Prescriptions Prescriptions: No Action Probiotic 3 billion cell capsule 3,000 mmu cells PO DAILY Rx Instructions: administer with a meal (DME) breast pump Device See Rx Instructions miscellaneous .MEDSUPPLY Qty: 1 0RF Rx Instructions: As directed magnesium 200 mg Tablet 200 mg PO DAILY 1 mg Tablet 1 tab PO DAILY Referrals / Follow Up: Rodrigo Ortiz DO [Primary Care Provider] -
[2022-12-04] MEDS: Acetaminophen 500 MG Tablet 1000 MG PO (20:26)
[2022-12-05] VITALS (11 sets, daily range): BP systolic 110–116; BP diastolic 56–70; PULSE 83–106; RESP 16–18; TEMP 36.4–37.2; O2SAT 82–99
[2022-12-05] MEDS: Naproxen 500 MG Tablet PO ×2 (04:08→16:31)
--- NOTE | 2022-12-05 07:37 | PCM.PN.OB ---
Subjective Subjective Patient doing well without complaints. Tolerating PO. Ambulating and voiding without difficulty. feeding well. Denies chest pain, shortness of breath, calf pain/swelling, fevers, chills, lightheadedness. Objective Data Objective Data Vital Signs: Vital Signs Temp Pulse Resp BP Pulse Ox O2 Del Method 98.5 F 85 16 112/64 82 Room Air 12/05/22 07:29 12/05/22 07:30 12/05/22 07:29 12/05/22 07:30 12/05/22 07:31 12/05/22 07:29 Oxygen Delivery Method Room Air Weight: 191 lb 9.307 oz Body Mass Index (BMI) 29.1 Intake & Output: Intake and Output for Last 24 Hours 12/03/22 12/04/22 12/05/22 23:59 23:59 23:59 Intake Total 1477.72 / 1477.72 Output Total 1500 / 1500 Balance -22.28 / -22.28 Lab / Micro Data Result Diagrams: 12/04/22 05:00 Labs: Laboratory Results - last 24 hr 12/04/22 03:20: Vag Amniotic Fld Detect POSITIVE H ROS Constitutional Constitutional: Reports systems reviewed and no addt'l complaints, except as documented Cardiovascular Cardiovascular: Reports systems reviewed and no addt'l complaints, except as documented Respiratory/Chest Respiratory/Chest: Reports systems reviewed and no addt'l complaints, except as documented Gastrointestinal Gastrointestinal: Reports systems reviewed and no addt'l complaints, except as documented Physical Exam Const alert, oriented x3 and no apparent distress HEENT Head and Scalp: atraumatic Resp normal respiratory effort GI soft to palpation and non-tender Bimanual Exam - Vag & Uterus: uterus non-tender Uterus Palpation: uterus fundus firm (below Umbilicus) Assessment & Plan (1) Vaginal delivery: COMMENT: KW/SM SROM 39.6 weeks Girl Sophie Breast PLAN: Plan s/p PPD # 1 1. routine post delivery care 2. breast feeding- support given 3. rh positive 4. rubella immune
[2022-12-05] MEDS: Senna/Docusate Sodium 1 Tablet PO (07:47)
[2022-12-05] MEDS: Acetaminophen 500 MG Tablet 1000 MG PO ×2 (07:47→20:29)
[2022-12-06 02:32] VITALS: BP 91/46; PULSE 82; RESP 20
[2022-12-06] MEDS: Naproxen 500 MG Tablet PO (04:09)
--- NOTE | 2022-12-06 06:17 | PCM.PN.OB ---
Subjective Subjective Patient doing well without complaints. Tolerating PO. Ambulating and voiding without difficulty. feeding well. Denies chest pain, shortness of breath, calf pain/swelling, fevers, chills, lightheadedness. Objective Data Objective Data Vital Signs: Vital Signs Temp Pulse Resp BP Pulse Ox O2 Del Method 97.6 F L 82 20 H 91/46 L 99 Room Air 12/05/22 15:49 12/06/22 02:32 12/06/22 02:32 12/06/22 02:32 12/05/22 15:49 12/06/22 02:32 Oxygen Delivery Method Room Air Weight: 191 lb 9.307 oz Body Mass Index (BMI) 29.1 Intake & Output: Intake and Output for Last 24 Hours 12/04/22 12/05/22 12/06/22 23:59 23:59 23:59 Intake Total 1477.72 / 1477.72 Output Total 1500 / 1500 Balance -22.28 / -22.28 Lab / Micro Data Result Diagrams: 12/04/22 05:00 ROS Constitutional Constitutional: Reports systems reviewed and no addt'l complaints, except as documented Cardiovascular Cardiovascular: Reports systems reviewed and no addt'l complaints, except as documented Respiratory/Chest Respiratory/Chest: Reports systems reviewed and no addt'l complaints, except as documented Gastrointestinal Gastrointestinal: Reports systems reviewed and no addt'l complaints, except as documented Physical Exam Const alert, oriented x3 and no apparent distress HEENT Head and Scalp: atraumatic Resp normal respiratory effort GI soft to palpation and non-tender Bimanual Exam - Vag & Uterus: uterus non-tender Uterus Palpation: uterus fundus firm (below Umbilicus) Assessment & Plan (1) Vaginal delivery: COMMENT: KW/SM SROM 39.6 weeks Girl [place] Breast PLAN: Plan s/p PPD # 2 1. routine post delivery care 2. breast feeding- support given 3. rh positive 4. rubella immune
--- NOTE | 2022-12-06 06:18 | PCM.DC.SUM ---
Providers Date of Admission: 12/04/22 Primary Care Physician: Dr. Rodrigo Ortiz DO Reason For Visit: VAG DELIVERY Diagnosis Discharge Diagnosis (1) Vaginal delivery: Status: Acute Code(s): O80 - Encounter for full-term uncomplicated delivery Plan s/p PPD # 2 1. routine post delivery care 2. breast feeding- support given 3. rh positive 4. rubella immune Medications at Discharge Home Medications lactobacillus combination no.4 3 billion cell capsule (Probiotic) 3,000 mmu cells PO DAILY Check with primary doctor 05/19/22 breast pump #1 ea 11/05/22 magnesium 200 mg tablet 200 mg PO DAILY 11/25/22 [id number] 1 mg tablet 1 tab PO DAILY 12/04/22 Hospital Course Summary of Care Provided Hospital Course: presented IAL delivered uncomplicated routine recovery discharged on ppd2 Weight / BMI Weight Weight: 191 lb 9.307 oz Body Mass Index (BMI) 29.1 ABG / Lab / Microbiology Data Result Diagrams: 12/04/22 05:00 D/C Instructions Discharge Diet: No restrictions May resume sexual activity in: 6-8 weeks Call your doctor if you observe: Fever of 101 or Higher, Coldness, Increased Pain, Numbness or Tingling, Change in Color, Inability to urinate, Inability to have a bowel movement, Using more than 1 pad per hour, Shortness of breath, Dizziness, Fainting spells, Swelling in the ankles, Chest pain, Increased palpitations (irregular heartbeat), Calf discomfort and Uncontrolled pain Please Follow Up With: Lynnette Prado CNM When: Please call the office to schedule your follow up appointment in 6 weeks. If you had high blood pressure please call to schedule an appointment in 2 weeks. Meaningful Use Info Meaningful Use Diagnoses (Choose all that apply): None applicable Discharge Plan Admission Admit Date/Time: 12/04/22 04:45 Attending Provider: Lynnette Prado Primary Care Provider: Rodrigo Ortiz Discharge Orders/Prescriptions Prescriptions: No Action Probiotic 3 billion cell capsule 3,000 mmu cells PO DAILY Rx Instructions: administer with a meal (DME) breast pump Device See Rx Instructions miscellaneous .MEDSUPPLY Qty: 1 0RF Rx Instructions: As directed magnesium 200 mg Tablet 200 mg PO DAILY 1 mg Tablet 1 tab PO DAILY Referrals / Follow Up: Rodrigo Ortiz DO [Primary Care Provider] -
[2022-12-06 08:20] VITALS: BP 116/68; PULSE 85; RESP 16; TEMP 36.8; O2SAT 97
--- NOTE | 2022-12-10 08:11 | NURSING ---
Follow up phone call questions done 12/09/2022 during patients follow up visit. Reports being well, not having any complications since delivery, bleeding minimal and loved her experience with WP.
== END 2022-12-06 10:45 | disposition home or self-care (01) | DRG 807 ==
LOC: WPOUT 05:34 → WP 05:35 → WPOUT 05:44 → WP 05:44
PROVIDERS: Admitting Provider Advanced Practice Midwife; PCP Family Medicine; Visit Provider Advanced Practice Midwife
DX: O70.0 First degree perineal laceration during delivery (principal); Z37.0 Single live birth; O69.81X0 Labor and delivery complicated by cord around neck, without compression, not applicable or unspecified; Z3A.39 39 weeks gestation of pregnancy
CPT/HCPCS: 59025; 59050; 84112; 85025; 86780; 86850; 86900; 86901; 99221; J7120; G0378

== ENCOUNTER → 2023-11-09 | Outpatient (CLI) | payer OTHER, SELFPAY ==
--- OUTSIDE RECORDS SUMMARY | 2023-11-09 10:14 | XMS RPT_ITS | CCD ---
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 Role Phone Rodrigo Ortiz Primary Care Provider BRYANT TALAVERA Attending Unavailable BRYANT TALAVERA Attending Unavailable Medications Current Medications Medication Drug Class(es) Dates Sig (Normalized) Sig (Original) chlorzoxazone 500 mg oral tablet (1 source) Muscle Relaxant Start: 02-10-2020 End: 02-20-2020 take 1 tablet by mouth three times daily as needed for muscle spasms chlorzoxazone (PARAFON FORTE DSC) 500 MG tablet Take 1 tablet by mouth 3 times daily as needed for Muscle spasms 12 tablet 0 02/10/2020 02/20/2020 Active Ethinyl Estradiol / norgestimate (1 source) Progestin, Estrogen Start: 06-22-2017 take 1 tablet by mouth once daily TRI-LINYAH 0.18/0.215/0.25 MG-35 MCG TABS Take 1 tablet by mouth daily 0 06/22/2017 Active predniSONE 20 mg oral tablet (1 source) Start: 02-10-2020 End: 02-15-2020 take 1 tablet by mouth twice daily predniSONE (DELTASONE) 20 MG tablet Take 1 tablet by mouth 2 times daily for 5 days 10 tablet 0 02/10/2020 02/15/2020 Active Problems Active Problems Problem Classification Problem Date Documented Date Episodic/Chronic Acute and chronic tonsillitis (1 source) Hypertrophy of tonsils; Translations: [Chronic tonsillar hypertrophy] Onset: 09-27-2015 09-27-2015 Chronic Administrative/social admission (2 sources) Encounter for pre-employment examination; Translations: [Encounter for pre-employment examination] Onset: 09-18-2022 Episodic Contraceptive and procreative management (1 source) Oral contraception; Translations: [Oral contraceptive use] 04-27-2015 Episodic Nausea and vomiting (2 sources) Vomiting; Translations: [Vomiting] Onset: 09-03-2022 Episodic Other skin disorders (1 source) Acne; Translations: [Acne] 04-27-2015 Episodic Thyroid disorders (1 source) Subacute thyroiditis; Translations: [Subacute thyroiditis] 04-27-2015 Chronic Past or Other Problems Problem Classification Problem Date Documented Da te Episodic/Chronic Other upper respiratory infections (1 source) Sinusitis; Translations: [Allergic sinusitis] Onset: 09-27-2015 09-27-2015 Episodic Results Test Name Value Interpretation Reference Range Facil ity Encounters Encounter Date Encounter Type Care Provider Facility Start: 09-18-2022 End: 09-18-2022 [facility] Start: 09-03-2022 End: 09-03-2022 [facility] Start: 02-10-2020 End: 02-10-2020 Subsequent hospital visit by physician Rodrigo Ortiz Work Phone: [facility] Plan of Treatment Date Care Activity Detail Author Start: 05-01-2020 Influenza vaccination Flu vacc ine (Season Ended) [place] Start: 2016 Screening for malign ant neoplasm of cervix Cervical cancer screen [place] Start: 2014 DTaP/Tdap/Td vaccine (1 - Tdap) DTaP/Tdap/Td vaccine (1 - Tdap) [place] Start: 2011 Screening for Chlamy lisseth trachomatis Chlamydia screen [place] Start: 2010 HIV screening HIV screen [place], [place] Start: 2006 HPV vaccine (1 - 2-d ose series) HPV vaccine (1 - 2-dose series) [place] Start: 1996 Varicella vaccine (1 of 2 - 2-dose childhood series) Varicella vaccine (1 of 2 - 2-dose childhood series) [place] Immunizations Immunization Date Immunization Notes Care Provider Bhakti olivarez 10-05-2015 tuberculin skin test ; purified protein derivative solution, intradermal Rodrigo Ortiz [place] 05-16-2014 influenza virus vacc ine, unspecified formulation Rodrigo Ortiz [place] Payers Date Payer Category Payer Unknown [id number] 2019 Private Health Insurance [facility] xxxxxxxxx 2019-Present [phone] [address] [place] [id number] xxxxxxxxx [id number] Social History Date Type Detail Facility [facility]: 02[facility]10-[facility] [place] Start: 02-10-2020 Alcohol intake Current drinke r of alcohol (finding) [place] Start: 02-10-2020 History SDOH Alcohol Frequency 2 [place] Start: 02-10-2020 History SDOH Alcohol Std Drinks 1 [place] Start: 02-10-2020 History SDOH Social Connections Phone 5 [place] Start: 02-10-2020 History SDOH Social Connections Jainism 3 [place] Start: 02-10-2020 History SDOH Social Connections Living 7 [place] Start: 02-10-2020 History SDOH Physica l Activity MPS 6 [place] Start: 04-27-2015 Alcohol Comment occasionally [place], [place] Sex Assigned At Not on file [place] Exposure to SARS-CoV -2 (event) Unable to assess [place] Summary Purpose Family History No Family History Records FoundNo Family History Records Found Advance Directives No Advanced Directives Records FoundDocuments on File 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 This clinical summary was aggregated from multiple sources. Caution should be exercised in using it in the provision of clinical care. This summary normalizes information from multiple sources, and as a consequence, information in this document may materially change the coding, format and clinical context of patient data. In addition, data may be omitted in some cases. CLINICAL DECISIONS SHOULD BE BASED ON THE PRIMARY CLINICAL RECORDS. [facility] [employer] [facility]. provides no warranty or guarantee of the accuracy or completeness of information in this document.
[2023-11-09 11:12] LABS: hCG Titer Quant., Serum 183 mIU/mL (1-3)
== END | disposition home or self-care (01) ==
LOC: LAB 09:54
PROVIDERS: Referring Provider Advanced Practice Midwife; Visit Provider Advanced Practice Midwife
DX: N91.2 Amenorrhea, unspecified (principal)
CPT/HCPCS: 36415; 84702

== ENCOUNTER → 2023-11-11 | Outpatient (CLI) | payer OTHER, SELFPAY ==
--- OUTSIDE RECORDS SUMMARY | 2023-11-11 11:07 | XMS RPT_ITS | CCD ---
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 Role Phone Rodrigo Ortiz Primary Care [...] Facility Start: 09-18-2022 End: 09-18-2022 [facility] Start: 09-03-2022 End: 09-03-2022 [facility] Start: 02-10-2020 End: 02-10-2020 Subsequent hospital visit by physician Rodrigo Ortiz Work Phone: [facility] Plan of Treatment Date Care Activity Detail Author Start: 05-01-2020 Influenza vaccination Flu vacc ine (Season Ended) [place] Start: 2016 Screening for malign ant neoplasm of cervix Cervical cancer screen [place] Start: 2014 DTaP/Tdap/Td vaccine (1 - Tdap) DTaP/Tdap/Td vaccine (1 - Tdap) [place] Start: 2011 Screening for Chlamy lisseth trachomatis Chlamydia screen [place] Start: 2010 HIV screening HIV screen [place], [place] Start: 2006 HPV vaccine (1 - 2-d ose series) HPV vaccine (1 - 2-dose series) [place] Start: 1996 Varicella vaccine (1 of 2 - 2-dose childhood series) Varicella vaccine (1 of 2 - 2-dose childhood series) [place] Immunizations Immunization Date Immunization Notes Care Provider Bhakti olivarez 10-05-2015 tuberculin skin test ; purified protein derivative solution, intradermal Rodrigo Ortiz [place] 05-16-2014 influenza virus vacc ine, unspecified formulation Rodrigo Ortiz [place] Payers Date Payer Category Payer Unknown [id number] 2019 Private Health Insurance [facility] - OPTIONS xxxxxxxxx 2019-Present [phone] [address] [place] [id number] xxxxxxxxx [id number] Social History Date Type Detail Facility Start: 02-10-[facility] [place] Start: 02-10-2020 Alcohol intake Current drinke r of alcohol (finding) [place] Start: 02-10-2020 History SDOH Alcohol Frequency 2 [place] Start: 02-10-2020 History SDOH Alcohol Std Drinks 1 [place] Start: 02-10-2020 History SDOH Social Connections Phone 5 [place] Start: 02-10-2020 History SDOH Social Connections Adventism 3 [place] Start: 02-10-2020 History SDOH Social Connections Living 7 [place] Start: 02-10-2020 History SDOH Physica l Activity MPS 6 [place] Start: 04-27-2015 Alcohol Comment occasionally [place], [place] Sex Assigned At Not on file [place] Exposure to SARS-CoV -2 (event) Unable to assess [place] Summary Purpose Family History No Family History Records FoundNo Family History Records Found Advance Directives No Advanced Directives Records FoundDocuments on File 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 [facility] [employer] [facility]. provides no warranty or guarantee of the accuracy or completeness of information in this document.
[2023-11-11 11:37] LABS: hCG Titer Quant., Serum 404 mIU/mL (1-3)
== END | disposition home or self-care (01) ==
PROVIDERS: Visit Provider Advanced Practice Midwife
DX: N91.2 Amenorrhea, unspecified (principal)
CPT/HCPCS: 36415; 84702

== ENCOUNTER → 2023-12-09 | Outpatient (CLI) | payer OTHER, SELFPAY ==
[2023-12-12 08:10] LABS: Chlamydia By Nucleic Acid AMP Negative (Negative); Gonococcus By Nucleic Acid AMP Negative (Negative)
== END | disposition home or self-care (01) ==
PROVIDERS: Referring Provider Registered Nurse; Visit Provider Registered Nurse
DX: O09.90 Supervision of high risk pregnancy, unspecified, unspecified trimester (principal); Z3A.00 Weeks of gestation of pregnancy not specified
CPT/HCPCS: 87086; 87491; 87591

== ENCOUNTER → 2023-12-21 | Outpatient (CLI) | payer OTHER, SELFPAY ==
[2023-12-21 13:16] LABS: Absolute Lymphocyte Count 2.66 X10^3/uL (0.83-4.51); Absolute Neutrophil Count 8.1 X10^3/uL (2.0-7.7); Basophil# 0.03 X10^3/uL; Basophil% 0.3 % (0-1); Eosinophil# 0.25 X10^3/uL; Eosinophils% 2.2 % (0-5); Hematocrit 39.3 % (37-47); Hemoglobin 13.1 g/dL (12.0-15.0); Lymphocyte # 2.66 X10^3/ul (0.83-4.51); Lymphocyte % 23.1 % (19-41); Mean Corp Hgb Conc 33.3 g/dL (32-36); Mean Corpuscular Volume 90.1 fL (81-99); Mean Platelet Vol. 9.3 fl (6.2-12.0); Monocyte% 4.3 % (0-10); NRBC Flagged by Analyzer 0 % (0-5); Neutrophil # 8.05 X10^3/uL (2.7-7.7); Neutrophil % 69.8 % (47-70); Platelet Count 306 K/mm3 (150-450); RBC Distribution Width CV 12.5 % (11.6-14.6); RBC Distribution Width SD 41.5 fl (35.1-43.9); Red Blood Count 4.36 M/mm3 (4.2-5.4); White Blood Count 11.5 K/mm3 (4.4-11.0)
[2023-12-21 14:22] LABS: HIV - WCH Non-Reactive (Nonreactive); Hepatitis B Surface Antigen Non-Reactive (Nonreactive); Hepatitis C Antibody Non-Reactive (Nonreactive); Rubella IgG Reactive (Nonreactive); Syphilis Antibodies Non-reactive
== END | disposition home or self-care (01) ==
PROVIDERS: Referring Provider Registered Nurse; Visit Provider Registered Nurse
DX: O09.90 Supervision of high risk pregnancy, unspecified, unspecified trimester (principal); Z3A.00 Weeks of gestation of pregnancy not specified
CPT/HCPCS: 36415; 85025; 86703; 86762; 86780; 86803; 86850; 86900; 86901; 87340

== ENCOUNTER → 2024-02-29 | Outpatient (CLI) | payer OTHER, SELFPAY ==
--- NOTE | 2024-02-29 15:26 | US_ITS ---
EXAM: US SECOND OR THIRD TRIMESTER , TRANSABDOMINAL CLINICAL INDICATION: anatomy and cervical length TECHNIQUE: Transabdominal obstetrical ultrasound of the maternal pelvis and a second or third trimester with image documentation. COMPARISON: No relevant prior studies available. FINDINGS: FETUS: There is an intrauterine gestation. HEART RATE: heart rate is 145 beats. PRESENTATION: The fetus is in the breech presentation. PLACENTA: Placenta is posterior. No placenta previa. No abruption. AMNIOTIC FLUID: Unremarkable. ANATOMY: Four-chamber heart, stomach, cord insertion, three-vessel, kidneys, bladder, spine and extremities were all visualized. Intracranial/face anatomy not seen. BIOMETRICS GESTATIONAL AGE: Gestational age 20 weeks 0 days. KELSEY: KELSEY 07/18/2024. EFW: Estimated weight 347 g. BPD: Biparietal diameter 4.6 cm age 20 weeks 0 days, 49th percentile. HC: Head circumference 17.5 cm age 20 weeks 0 days, 44th percentile. AC: Abdominal circumference 15.1 cm age 20 weeks 2 days, 55th percentile. FL: Femur length 3.3 cm age 23 days, 58th percentile. MATERNAL: UTERUS: Unremarkable. No myometrial mass. CERVIX: Cervix measures 4.3 cm. ADNEXA: Unremarkable. No adnexal masses. FREE FLUID: None. IMPRESSION: Intrauterine gestation with an average ultrasound age of 20 weeks 0 days and ultrasound estimated due date of 07/18/2024. Electronically Signed: Des Davenport MD at 0:05 EDT , EXAM: US , TRANSVAGINAL CLINICAL INDICATION: anatomy and cervical length TECHNIQUE: Real-time transvaginal obstetrical ultrasound of the maternal pelvis and a first trimester with image documentation. Transvaginal imaging was used for better evaluation of the fetus and adnexa. COMPARISON: No relevant prior studies available. FINDINGS: GESTATION: There is an intrauterine gestation. The fetus is in breech position. heart rate is 145 beats per. Gestational age 20 weeks 0 days. ANATOMY: Four-chamber heart, kidneys, stomach, three-vessel cord, cord insertion, bladder, spine and extremities were all visualized. KELSEY: KELSEY 07/18/2024. EFW: Estimated weight 347 g. BPD: Biparietal diameter 4.6 cm age 20 weeks 0 days. HC: Head circumference 17.5 cm age 20 weeks 0 days. AC: Abdomen circumference 15.1 cm age 20 weeks 2 days. FL: Femur length 3.3 cm age 20 weeks 3 days. PLACENTA/AMNIOTIC FLUID: The placenta is posterior. UTERUS/CERVIX: Cervix measures 4 cm. No myometrial mass. OVARIES: Unremarkable. No mass. FREE FLUID: The largest fluid pocket measures 5.5 x 3.2 cm. US/OB Anatomy Scan IMPRESSION: Intrauterine gestation with an average ultrasound age of 20 weeks 0 days and ultrasound estimated due date of 07/18/2024. heart rate is 145 bpm. Electronically Signed: Des Davenport MD at 0:09 EDT ,
== END | disposition home or self-care (01) ==
PROVIDERS: PCP Family Medicine; Referring Provider Obstetrics & Gynecology; Visit Provider Obstetrics & Gynecology
DX: N93.9 Abnormal uterine and vaginal bleeding, unspecified (principal)
CPT/HCPCS: 76805; 76817

== ENCOUNTER → 2024-04-20 | Outpatient (CLI) | payer OTHER, SELFPAY ==
[2024-04-20 11:20] LABS: Absolute Lymphocyte Count 1.74 X10^3/uL (0.83-4.51); Absolute Neutrophil Count 8.5 X10^3/uL (2.0-7.7); Basophil# 0.03 X10^3/uL; Basophil% 0.3 % (0-1); Eosinophil# 0.25 X10^3/uL; Eosinophils% 2.3 % (0-5); Hematocrit 35.3 % (37-47); Hemoglobin 11.6 g/dL (12.0-15.0); Lymphocyte # 1.74 X10^3/ul (0.83-4.51); Lymphocyte % 15.7 % (19-41); Mean Corp Hgb Conc 32.9 g/dL (32-36); Mean Corpuscular Hgb 29.9 pg (27.0-32.0); Mean Platelet Vol. 9.2 fl (6.2-12.0); Monocyte% 4.5 % (0-10); NRBC Flagged by Analyzer 0 % (0-5); Neutrophil # 8.48 X10^3/uL (2.7-7.7); Neutrophil % 76.4 % (47-70); Platelet Count 259 K/mm3 (150-450); RBC Distribution Width CV 12.9 % (11.6-14.6); RBC Distribution Width SD 42.2 fl (35.1-43.9); Red Blood Count 3.88 M/mm3 (4.2-5.4); White Blood Count 11.1 K/mm3 (4.4-11.0)
[2024-04-20 11:45] LABS: Glucose Challenge Gest 1H 50g 108 mg/dL (70-140)
[2024-04-20 12:24] LABS: HIV - WCH Non-Reactive (Nonreactive); Syphilis Antibodies Non-reactive
== END | disposition home or self-care (01) ==
LOC: LAB 10:51
PROVIDERS: Advanced Practice Midwife; PCP Family Medicine; Referring Provider Obstetrics & Gynecology; Visit Provider Obstetrics & Gynecology
DX: O09.90 Supervision of high risk pregnancy, unspecified, unspecified trimester (principal); Z3A.20 20 weeks gestation of pregnancy; Z13.1 Encounter for screening for diabetes mellitus
CPT/HCPCS: 36415; 82950; 85025; 86703; 86780

== ENCOUNTER → 2024-06-16 | Outpatient (CLI) | payer OTHER, SELFPAY ==
--- NOTE | 2024-06-16 13:20 | US_ITS ---
STUDY: Ultrasound OB limited 1 or more fetus REASON FOR EXAM: Female, 28 years old growth LMP: 10/12/2023 correlating with 35 weeks 3 days and estimated delivery date July 18, 2024 PRIOR ULTRASOUND: February 29, 2024. TECHNIQUE: Transabdominal OB ultrasound grayscale color flow and M-mode Doppler. FINDINGS: There is a single live intrauterine . The fetus is in a cephalic presentation. There is demonstrated cardiac activity with a heart rate of 143 bpm. There is a normal amniotic fluid volume. The largest amniotic fluid pocket measures 3.9 cm. The amniotic fluid index (JORDAN) is 11.6 cm. The placenta is posterior There are Grade 2 placental changes. The cervix is partially obscured BIOMETRY: BPD: 8.6cm: 34 weeks, 4 days HC: 31.1 cm: 34 weeks, 6 days AC: 31.8 cm: 35 weeks, 5 days FL: 6.9 cm: 35 weeks, 2 days age by current US: 35 weeks, 3 days. KELSEY by current US: July 23 2024. Estimated weight: 2708 grams, +/- 40 grams, 52 percentile compared to prior dating. US/OB Limited With Biometrics IMPRESSION: Single live intrauterine with normal heart rate Current cephalic presentation. Cervix is not well seen. Amniotic fluid is anechoic with Deepest vertical pocket 3.9 cm. Total JORDAN is slightly low at 7.6. Electronically Signed: Brown Price MD at 22:28 EDT ,
== END | disposition home or self-care (01) ==
PROVIDERS: Referring Provider Obstetrics & Gynecology; Visit Provider Obstetrics & Gynecology
DX: Z34.92 Encounter for supervision of normal pregnancy, unspecified, second trimester (principal)
CPT/HCPCS: 76816

== ENCOUNTER → 2024-06-16 | Outpatient (CLI) | payer OTHER, SELFPAY ==
[2024-06-16 11:52] LABS: Absolute Neutrophil Count 8.7 X10^3/uL (2.0-7.7); Basophil# 0.02 X10^3/uL; Basophil% 0.2 % (0-1); Eosinophil# 0.21 X10^3/uL; Eosinophils% 1.8 % (0-5); Hematocrit 38.7 % (37-47); Hemoglobin 12.7 g/dL (12.0-15.0); Lymphocyte % 15.6 % (19-41); Mean Corp Hgb Conc 32.8 g/dL (32-36); Mean Corpuscular Hgb 29.6 pg (27.0-32.0); Mean Corpuscular Volume 90.2 fL (81-99); Mean Platelet Vol. 9.4 fl (6.2-12.0); Monocyte# 0.67 X10^3/uL; Monocyte% 5.8 % (0-10); NRBC Flagged by Analyzer 0 % (0-5); Neutrophil # 8.72 X10^3/uL (2.7-7.7); Neutrophil % 75.6 % (47-70); Platelet Count 276 K/mm3 (150-450); RBC Distribution Width CV 12.8 % (11.6-14.6); RBC Distribution Width SD 41.5 fl (35.1-43.9); Red Blood Count 4.29 M/mm3 (4.2-5.4); White Blood Count 11.5 K/mm3 (4.4-11.0)
[2024-06-16 12:18] LABS: ALB/GLOB Ratio 0.6 RATIO (0.9-2.4); AST(SGOT) 47 U/L (15-37); Alanine Aminotransfer ALT/SGPT 46 U/L (13-56); Albumin, Serum 2.6 g/dL (3.2-5.0); Alkaline Phosphatase 194 U/L (45-117); Anion Gap 5 (5-15); BUN 8 mg/dL (7-18); BUN/Creat Ratio 15.7 RATIO (10-20); Calcium,Total 8.9 mg/dL (8.5-10.1); Chloride 108 mmol/L (98-107); Creatinine, Serum 0.51 mg/dL (0.55-1.02); EST Glomerular Filtration Rate 152 mL/min (>60); Est Glom Filt Rate - Afr Amer 183 mL/min (>60); Globulin 4.5 g/dL (2.2-4.2); Glucose 98 mg/dL (74-106); Potassium 3.7 mmol/L (3.5-5.1); Protein, Total 7.1 g/dL (6.4-8.2); Sodium Level 137 mmol/L (136-145)
[2024-06-16 15:13] LABS: Protein, Urine (Random) < 6.0 mg/dL (<11.9)
== END | disposition home or self-care (01) ==
PROVIDERS: Referring Provider Obstetrics & Gynecology; Visit Provider Obstetrics & Gynecology
DX: Z34.92 Encounter for supervision of normal pregnancy, unspecified, second trimester (principal)
CPT/HCPCS: 36415; 80053; 82570; 84156; 85025

== ENCOUNTER → 2024-06-19 | Outpatient (CLI) | payer OTHER, SELFPAY ==
[2024-06-19 10:12] LABS: Absolute Lymphocyte Count 1.76 X10^3/uL (0.83-4.51); Absolute Neutrophil Count 7.1 X10^3/uL (2.0-7.7); Basophil# 0.04 X10^3/uL; Basophil% 0.4 % (0-1); Eosinophil# 0.18 X10^3/uL; Eosinophils% 1.9 % (0-5); Hematocrit 39.2 % (37-47); Hemoglobin 12.8 g/dL (12.0-15.0); Lymphocyte # 1.76 X10^3/ul (0.83-4.51); Lymphocyte % 18.3 % (19-41); Mean Corp Hgb Conc 32.7 g/dL (32-36); Mean Corpuscular Hgb 29.7 pg (27.0-32.0); Mean Platelet Vol. 9.7 fl (6.2-12.0); Monocyte# 0.49 X10^3/uL; Monocyte% 5.1 % (0-10); NRBC Flagged by Analyzer 0 % (0-5); Neutrophil # 7.08 X10^3/uL (2.7-7.7); Neutrophil % 73.6 % (47-70); Platelet Count 266 K/mm3 (150-450); RBC Distribution Width CV 12.6 % (11.6-14.6); RBC Distribution Width SD 41.6 fl (35.1-43.9); Red Blood Count 4.31 M/mm3 (4.2-5.4); White Blood Count 9.6 K/mm3 (4.4-11.0)
[2024-06-19 10:20] LABS: Protein:Creat Ratio 278 mg/g CRE (0-200)
[2024-06-19 10:35] LABS: ALB/GLOB Ratio 0.6 RATIO (0.9-2.4); AST(SGOT) 53 U/L (15-37); Alanine Aminotransfer ALT/SGPT 52 U/L (13-56); Albumin, Serum 2.7 g/dL (3.2-5.0); Alkaline Phosphatase 205 U/L (45-117); Anion Gap 6 (5-15); BUN 8 mg/dL (7-18); BUN/Creat Ratio 15.2 RATIO (10-20); Calcium,Total 9.2 mg/dL (8.5-10.1); Chloride 110 mmol/L (98-107); Creatinine, Serum 0.53 mg/dL (0.55-1.02); EST Glomerular Filtration Rate 146 mL/min (>60); Est Glom Filt Rate - Afr Amer 177 mL/min (>60); Globulin 4.3 g/dL (2.2-4.2); Glucose 98 mg/dL (74-106); Potassium 4.1 mmol/L (3.5-5.1); Sodium Level 138 mmol/L (136-145)
== END | disposition home or self-care (01) ==
LOC: LAB 09:50
PROVIDERS: Referring Provider Obstetrics & Gynecology; Visit Provider Obstetrics & Gynecology
DX: Z34.90 Encounter for supervision of normal pregnancy, unspecified, unspecified trimester (principal)
CPT/HCPCS: 36415; 80053; 82570; 84156; 85025

== ENCOUNTER → 2024-06-21 | Outpatient (CLI) | payer OTHER, SELFPAY ==
[2024-06-21 09:25] LABS: Absolute Lymphocyte Count 1.55 X10^3/uL (0.83-4.51); Absolute Neutrophil Count 7.9 X10^3/uL (2.0-7.7); Basophil# 0.03 X10^3/uL; Basophil% 0.3 % (0-1); Eosinophil# 0.17 X10^3/uL; Eosinophils% 1.7 % (0-5); Hematocrit 38.5 % (37-47); Hemoglobin 12.7 g/dL (12.0-15.0); Lymphocyte # 1.55 X10^3/ul (0.83-4.51); Lymphocyte % 15.3 % (19-41); Mean Platelet Vol. 9.5 fl (6.2-12.0); Monocyte# 0.42 X10^3/uL; Monocyte% 4.1 % (0-10); NRBC Flagged by Analyzer 0 % (0-5); Neutrophil # 7.91 X10^3/uL (2.7-7.7); Neutrophil % 77.9 % (47-70); Platelet Count 255 K/mm3 (150-450); RBC Distribution Width CV 12.7 % (11.6-14.6); RBC Distribution Width SD 41.6 fl (35.1-43.9); Red Blood Count 4.23 M/mm3 (4.2-5.4); White Blood Count 10.2 K/mm3 (4.4-11.0)
[2024-06-21 09:48] LABS: ALB/GLOB Ratio 0.6 RATIO (0.9-2.4); AST(SGOT) 49 U/L (15-37); Alanine Aminotransfer ALT/SGPT 50 U/L (13-56); Albumin, Serum 2.7 g/dL (3.2-5.0); Alkaline Phosphatase 206 U/L (45-117); Anion Gap 6 (5-15); BUN 8 mg/dL (7-18); BUN/Creat Ratio 13.3 RATIO (10-20); Calcium,Total 9.5 mg/dL (8.5-10.1); Chloride 106 mmol/L (98-107); EST Glomerular Filtration Rate 125 mL/min (>60); Est Glom Filt Rate - Afr Amer 152 mL/min (>60); Globulin 4.2 g/dL (2.2-4.2); Glucose 128 mg/dL (74-106); Potassium 4.2 mmol/L (3.5-5.1); Protein, Total 6.9 g/dL (6.4-8.2); Sodium Level 136 mmol/L (136-145)
[2024-06-21 09:52] LABS: Protein, Urine (Random) 18.8 mg/dL (<11.9); Protein:Creat Ratio 190 mg/g CRE (0-200)
== END | disposition home or self-care (01) ==
PROVIDERS: Referring Provider Advanced Practice Midwife; Visit Provider Advanced Practice Midwife
DX: O12.10 Gestational proteinuria, unspecified trimester (principal); Z3A.00 Weeks of gestation of pregnancy not specified
CPT/HCPCS: 36415; 80053; 82570; 84156; 85025; 87081

== ENCOUNTER → 2024-06-24 | Outpatient (CLI) | payer OTHER, SELFPAY ==
--- NOTE | 2024-06-24 08:53 | US_ITS ---
STUDY: SECOND AND THIRD TRIMESTER OBSTETRICAL ULTRASOUND - LIMITED REASON FOR EXAM: Female, 28 years old JORDAN LMP: October 12, 2023. PRIOR ULTRASOUND: Comparison is made with prior study dated June 16, 2024. TECHNIQUE: Transabdominal TECHNICAL QUALITY: Adequate. FINDINGS: There is a single intrauterine fetus. The fetus is in a cephalic presentation. There is demonstrated cardiac activity with a heart rate of 153 bpm. There is a normal amniotic fluid volume. The largest amniotic fluid pocket measures 4.2 cm x 6.7 cm. The amniotic fluid index (JORDAN) is 14.2 cm. The placenta is posterior in location and is not low lying. There are Grade 2 placental changes. BIOMETRY: Age by LMP: 36 weeks, 4 days. KELSEY by LMP: July 18, 2024. age by prior US: 35 weeks, 6 days. KELSEY by prior US: July 23, 2024. US/OB Limited (No Biometrics) IMPRESSION: Good interval growth. Electronically Signed: Ross Valerio MD at 15:02 EDT ,
--- OUTSIDE RECORDS SUMMARY | 2024-06-24 09:15 | XMS RPT_ITS | CCD ---
Author Organization 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 Name Role Phone Rodrigo Ortiz Primary Care [...] Name Value Interpretation Reference Range Facil ity Office Visiton 09-18-2022 Follow-up visit [id number] Hieu Galeana 1995 F Date Provider Department Center 09/18/2022 BRYANT CAVAZOS [facility] Family History Problem Relation Age of Onset Other Father Comments: Drug and alcohol abuse Diabetes Paternal Grandfather Heart disease Paternal Grandmother Osteoporosis Maternal Grandmother Cancer Maternal Grandfather Comments: lung & prostate Thyroid disease Paternal Grandmother Family Status - Relation Status Age at Father Alive Paternal Grandfather Paternal Grandmother Maternal Grandmother Alive Maternal Grandfather Alive Sister Alive Mother Alive Brother Alive Level of Service:05656 NC PERIODIC PREVENTIVE MED EST PATIENT 18-39 YRS Reason for Visit and Comments: Employment Physical [40] - [employer]spot blood work Normal [facility] Progress Noteon 09-18-2022 Progress Note [facility] [address] [facility] [address] Dept: [phone] Dept Loc: [phone] Visit type: Established Patient Reason for Visit: Employment Physical ([employer] blood work ) Assessment/Plan 1. Annual physical exam 2. Pre-employment health screening examination Comments: Quantiferon gold ordered No restrictions Orders: - Quantiferon TB Gold Follow up in about 1 year (around 09/18/2023) for physical exam. Educated on follow up criteria Subjective HPI Hieu is a 27 year old female. She presents for annual exam for work. 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 Of note, patient is 29 weeks . She has been seen by myself, OBGYN, and ER for GI symptoms she has been having. She did have US which she states should mild distention and sludge of the gallbladder. Encouraged patient to watch diet and they area going to continue to monitor symptoms throughout . PATIENT CONCERNS TODAY: No other acute concerns today. Patient is still having nighttime emesis, not nightly. She is following bland diet CHRONIC CONDITION MANAGEMENT: No chronic conditions currently being managed. HEALTH MAINTENANCE: Screenings: - Cervical Cancer Cancer Screening: [facility], UTD, within last year - Breast Cancer Screening: UTD, no fam hx - Colon Cancer Screening: No history, not due - Osteoporosis Screening: Not due - STI Screening: Declines - Eye: Unsure. 2015 - Dental: Few years. Encourage to go after - BMI: , Only slightly over normal BMI Immunizations: Immunization History Administered Date(s) Administered DTP 1995, 1995, 01/04/1996, 02/09/1997, 01/11/2001 Hep B, Adolescent or Pediatric 01/11/2001, 02/12/2001, 09/13/2001 HiB, unspecified 1995, 1995, 01/04/1996, 02/09/1997 Influenza, Unspecified 05/16/2014 Influenza, injectable, quadrivalent, preservative free 05/15/2016, 08/14/2017 Influenza, seasonal, injectable, preservative free 05/16/2014 MMR 02/09/1997, 02/12/2001 PPD Test 10/05/2015 Polio, Unspecified 1995, 1995, 01/04/1996, 01/11/2001 Tdap 02/11/2011, 08/14/2017 Review of Systems Constitutional: Negative for fever. HENT: Negative for dental problem. Eyes: Negative for visual disturbance. Respiratory: Negative for shortness of breath. Cardiovascular: Negative for chest pain. Gastrointestinal: Positive for nausea and vomiting. Negative for abdominal pain and diarrhea. Musculoskeletal: Positive for back pain. Psychiatric/Behavioral : Positive for sleep disturbance. All other systems reviewed and are negative. No Known Allergies Outpatient Medications Prior to Visit Medication Sig Dispense Refill famotidine (Pepcid) 40 MG tablet MV-Min-Fe Fum-FA-DHA ( 1 PO) Take by mouth. No facility-administered medications prior to visit. Past Medical History: Diagnosis Date Acne Allergic rhinitis Hyperthyroidism Mononucleosis 2012 Oral contraceptive use Ovarian cyst Right.Followed by Dr. Valderrama Subacute thyroiditis 10/15 neg thyroid scan Social History Tobacco Use Smoking status: Never Smokeless tobacco: Never Substance Use Topics Alcohol use: Yes Alcohol/week: 0.0 standard drinks Past Surgical History: Procedure Laterality Date KNEE SURGERY Right 2008 & 08/2012 knee plica and patellofemoral synd repair per Dr. Castillo Family History Problem Relation Name Age of Onset Other (84802) Father Magen Drug and alcohol abuse Diabetes Paternal Grandfather Heart disease Paternal Grandmother Osteoporosis Maternal Grandmother Cancer Maternal Grandfather lung & prostate Thyroid disease Paternal Grandmother Objective Physical Exam Vitals reviewed. Constitutional: General: She is not in acute distress. Appearance: Normal appearance. HENT: Right Ear: Tympanic membrane, ear canal and external ear normal. Left Ear: Tympanic membrane, ear canal and external ear normal. Mouth/Throat: Pharynx: No oropharyngeal exudate or posterior oropharyngeal erythema. Eyes: Extraocular Movements: Extraocular movements intact. Conjunctiva/sclera: Conjunctivae normal. Pupils: Pupils are equal, round, and reactive to light. Cardiovascular: Rate and Rhythm: Normal rate and regular rhythm. Pulses: Normal pulses. Pulmonary: Effort: Pulmonary effort is normal. No respiratory distress. Breath sounds: Normal breath sounds. No wheezing. Abdominal: General: Bowel sounds are normal. Tenderness: There is no abdominal tenderness. Comments: Skin: General: Skin is warm and dry. Neurological: General: No focal deficit present. Mental Status: She is alert. Psychiatric: Mood and Affect: Mood normal. Behavior: Behavior normal. BP 94/60 (BP Location: Left arm, Patient Position: Sitting, BP Cuff Size: Large adult) (more content not included)... Normal [facility] 36on 09-03-2022 36 S: Patient spoke wit h [facility] nurse regarding vomiting and a fever B: Onset of symptoms/concern flu 2 weeks ago and has had problems with GERD and vomiting since then. A: Patient states she is 26 weeks . She states she is having vomiting and a low grade fever. She states she is dry heaving and felt short of breath. She states last night she felt that she aspirated when she was vomiting. It took her a while to be able to take a deep breath. She used her husbands Albuterol inhaler. She states at times she has had right upper quad pain. She has been sent to the ED by her OBGYN. She was sent to L&D at [facility]. Today the patient called her OB doctor and they have ordered a US of her Gallbladder. She was told to see her PCP. R: Scheduled with Cyn Talavera today at 1350. Reason for Disposition Patient wants to be seen Protocols used: - Morning Sickness (Nausea and Vomiting of )-ADULT-OH Normal [facility] Office Visiton 09-03-2022 Follow-up visit [id number] Hieu Galeana 1995 F Date Provider Department Center 09/03/2022 BRYANT CAVAZOS [facility] Family History Problem Relation Age of Onset Other Father Comments: Drug and alcohol abuse Diabetes Paternal Grandfather Heart disease Paternal Grandmother Osteoporosis Maternal Grandmother Cancer Maternal Grandfather Comments: lung & prostate Thyroid disease Paternal Grandmother Family Status - Relation Status Age at Father Alive Paternal Grandfather Paternal Grandmother Maternal Grandmother Alive Maternal Grandfather Alive Sister Alive Mother Alive Brother Alive Level of Service:95676 NC OFFICE/OUTPATIENT ESTABLISHED LOW MDM 20-29 MIN Reason for Visit and Comments: Vomiting [120] - Throwing up after laying down, aspirated last night [facility] Progress Noteon 09-03-2022 Progress Note [facility] [address] [facility] [address] Dept: [phone] Dept Loc: [phone] Visit type: Established Patient Reason for Visit: Vomiting (Throwing up after laying down, aspirated last night) Assessment and Plan 1. Vomiting without nausea, unspecified vomiting type Comments: Acute Continue Pepcid US per OBGYN Long diet Push fluids Follow up if symptoms worsen or fail to improve. Reviewed use, side effects, and benefits of prescribed medication. Barriers to compliance addressed. All questions answered. Verbalized understanding Educated on follow up criteria Given education on diet for gallbladder Subjective HPI Hieu is a 27-year-old female. Presents today for complaints of possible gallbladder issues. Of note patient is 26, almost 27 weeks . Patient symptoms initially started 2-1/2 weeks ago. Was having right upper quadrant abdominal pain, hatfield-colored stools, vomiting, diarrhea. Patient states most of the symptoms have improved, however she is still waking up almost every other night with projectile emesis. Patient was started on Pepcid by [facility] and ultrasound was ordered this morning. Waiting approval from insurance prior to ultrasound scheduling. Patient states during the day her symptoms are not as bad. However when she is sleeping she will wake up puking. Last night had an episode where she believes she aspirated her vomit. She had shortness of breath and wheezing and she felt like she sucked in her vomit. At this time patient is not having any increased symptoms with eating. When symptoms initially started 2 and half weeks ago she had a fever, then it resolved, but returned again last night. Temp 100.0 last night. States her bowels are back to normal, no longer hatfield and loose. Patient did go to [place] [facility] at the advice of her OB, ER sent her to labor and delivery. Labor and delivery checked the baby and her lab work and said she was okay and discharged her. Did not do an ultrasound of her abdomen at that time. Patient states baby is moving normally. Chani HEATH-[place] Review of Systems Constitutional: Positive for appetite change and fever. Respiratory: Feels like she cannot take a full deep breath Cardiovascular: Negative for chest pain. Gastrointestinal: Positive for vomiting. Negative for blood in stool, diarrhea and nausea. No current abdominal pain Psychiatric/Behavioral : Positive for sleep disturbance. No Known Allergies Outpatient Medications Prior to Visit Medication Sig Dispense Refill famotidine (Pepcid) 40 MG tablet MV-Min-Fe Fum-FA-DHA ( 1 PO) Take by mouth. No facility-administered medications prior to visit. Past Medical History: Diagnosis Date Acne Allergic rhinitis Hyperthyroidism Mononucleosis 2012 Oral contraceptive use Ovarian cyst Right.Followed by Dr. Valderrama Subacute thyroiditis 10/15 neg thyroid scan Social History Tobacco Use Smoking status: Never Smokeless tobacco: Never Substance Use Topics Alcohol use: Yes Alcohol/week: 0.0 standard drinks Past Surgical History: Procedure Laterality Date KNEE SURGERY Right 2008 & 08/2012 knee plica and patellofemoral synd repair per Dr. Castillo Family History Problem Relation Name Age of Onset Other (10836) Father Magen Drug and alcohol abuse Diabetes Paternal Grandfather Heart disease Paternal Grandmother Osteoporosis Maternal Grandmother Cancer Maternal Grandfather lung & prostate Thyroid disease Paternal Grandmother Objective BP 105/62 Pulse (!) 112 Temp 36.6 ?C (97.8 ?F) (Temporal) Ht 5' 9 (1.753 m) Wt 170 lb 12.8 oz (77.5 kg) SpO2 98% BMI 25.22 kg/m? Physical Exam Vitals reviewed. Constitutional: General: She is not in acute distress. Appearance: Normal appearance. Cardiovascular: Rate and Rhythm: Normal rate and regular rhythm. Pulses: Normal pulses. Pulmonary: Effort: Pulmonary effort is normal. No respiratory distress. Breath sounds: Normal breath sounds. No wheezing. Abdominal: General: Bowel sounds are normal. Tenderness: There is no abdominal tenderness. Comments: No abdominal tenderness at this time. Skin: General: Skin is warm and dry. Neurological: General: No focal deficit present. Mental Status: She is alert. Psychiatric: Mood and Affect: Mood normal. Behavior: Behavior normal. Data Reviewed and Summarized Labs: Imaging/Testing: Bryant Talavera APRN - JANUSZ [facility] 03-31-[facility] ([facility] ) HIEU CALI ([id number]) 1995 F Date Time Provider Department 03/31/19 7:45 PM VAISHALI MARKS [facility] During your visit today, we recorded the following information about you: Temperature Pulse Respiration Blood pressure 97.9 degrees 90/minute 14/minute 94/62 Weight 66.6 kg Vaishali Marks APRN.CNP 03/31/2019 8:03 PM Addendum Subjective The history is provided by the patient. No foreign language stenographer was used. HPI Hieu M Seven is a 23 year old female who presents today for CC of sinus congestion and pressure. This started about 2 weeks ago. She has had a fever and sore throat since Thursday. She has tried dayquil, nyquil, mucinex, tylenol and ibuprofen. She is also using cough drops. 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 BP 94/62 Pulse 90 Temp 36.6 ?C (97.9 ?F) (Tympanic) Resp 14 Wt 66.6 kg (146 lb 12.8 oz) SpO2 100% Social History Socioeconomic History Marital status: Single Spouse name: Not on file Number of children: Not on file Years of education: Not on file Highest education level: Not on file Occupational History Not on file Social Needs Financial resource strain: Not on file Food insecurity: Worry: Not on file Inability: Not on file Transportation needs: Medical: Not on file Non-medical: Not on file Tobacco Use Smoking status: Never Smoker Smokeless tobacco: Never Used Substance and Sexual Activity Alcohol use: Not on file Drug use: Not on file Sexual activity: Not on file Lifestyle Physical activity: Days per week: Not on file Minutes per session: Not on file Stress: Not on file Relationships Social connections: Talks on phone: Not on file Gets together: Not on file Attends restoration service: Not on file Active member of club or organization: Not on file Attends meetings of clubs or organizations: Not on file Relationship status: Not on file Intimate partner violence: Fear of current or ex partner: Not on file Emotionally abused: Not on file Physically abused: Not on file Forced sexual activity: Not on file Other Topics Concerns: Not on file Social History Narrative Not on file No past medical history on file. I have confirmed and edited as necessary, the [facility] Review of Systems Constitutional: Positive for fever. Negative for chills. HENT: Positive for sore throat. Negative for congestion, ear pain and sinus pain. Respiratory: Positive for cough. Negative for sputum production, shortness of breath and wheezing. Cardiovascular: Negative for chest pain. Musculoskeletal: Negative for myalgias. Neurological: Negative for headaches. Objective Physical Exam Constitutional: She is well-developed, well-nourished, and in no distress. HENT: Head: Normocephalic and atraumatic. Right Ear: External ear and ear canal normal. Tympanic membrane is bulging. A middle ear effusion (serous) is present. Left Ear: Ear canal normal. Tympanic membrane is bulging. A middle ear effusion (serous) is present. Nose: Mucosal edema and rhinorrhea present. Right sinus exhibits maxillary sinus tenderness. Left sinus exhibits maxillary sinus tenderness. Mouth/Throat: Uvula is midline and mucous membranes are normal. Oropharyngeal exudate (white), posterior oropharyngeal edema and posterior oropharyngeal erythema present. Cardiovascular: Normal rate, regular rhythm and normal heart sounds. Pulmonary/Chest: Effort normal and breath sounds normal. No respiratory distress. She has no decreased breath sounds. She has no wheezes. She has no rhonchi. She has no rales. Lymphadenopathy: Head (right side): No submental, no submandibular and no tonsillar adenopathy present. Head (left side): No submental, no submandibular and no tonsillar adenopathy present. She has no cervical adenopathy. Neurological: She is alert. Skin: Skin is warm and dry. Psychiatric: Affect normal. Nursing note and vitals reviewed. ASSESSMENT/PLAN: 1. Sore throat - ICD9: 462, ICD10: J02.9 (primary diagnosis) - suspect viral - suspicous for mono, advise if rash develops or worsening symptoms see PCP for further evaluation - Rapid Strep negative in the office today - Discussed supportive care treatment with fluids, rest and analgesia. - The patient may also use warm salt water gargles, throat lozenges and/or OTC throat spray as needed. - The patient should follow up in one week if symptoms persist or worsen - Call back if drooling, increased temperature, symptoms of dehydration and/or still sick in one week - RAPID STREP TEST B/O 2. Acute non-recurrent pansinusitis - ICD9: 461.8, ICD10: J01.40 - Will begin treatment with Amoxicillin for 10 days - Supportive care with plenty of fluids, rest - Follow up in one week if symptoms persist or worsen. Tylenol (generic acetaminophen) 500 mg-2 tabs every 8 hrs. as needed for fever and aches Ibuprofen 600 mg (3-200mg tablets) every 6 hours DO NOT take any other OTC cough or cold medication while taking the prescription Bromfed DM. 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 * Seek medical care immediately, call 911, go to ER if you have chest pain, difficulty breathing, shortness of breath, inability to swallow. Diagnosis and treatment plan were discussed and questions were answered to the patient's satisfaction. Pt acknowledged understanding of concepts and follow up plan. Specific signs and symptoms that would indicate the need for higher level of care were discussed in detail warranting prompt ER evaluation. EMMETT Telles APRN.CNP 03/31/2019 8:00 PM Signed ASSESSMENT/PLAN: 1. Sore throat - ICD9: 462, ICD10: J02.9 (primary diagnosis) - suspect viral - Rapid Strep negative in the office today - Discussed supportive care treatment with fluids, rest and analgesia. - The patient may also use warm salt water gargles, throat lozenges and/or OTC throat spray as needed. - The patient should follow up in one week if symptoms persist or worsen - Call back if drooling, increased temperature, symptoms of dehydration and/or still sick in one week - RAPID STREP TEST B/O 2. Acute non-recurrent pansinusitis - ICD9: 461.8, ICD10: J01.40 - Will begin treatment with Amoxicillin for 10 days - Supportive care with plenty of fluids, rest - Follow up in one week if symptoms persist or worsen. Tylenol (generic acetaminophen) 500 mg-2 tabs every 8 hrs. as needed for fever and aches Ibuprofen 600 mg (3-200mg tablets) every 6 hours DO NOT take any other OTC cough or cold medication while taking the prescription Bromfed DM. 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 * Seek medical care immediately, call 911, go to ER if you have chest pain, difficulty breathing, shortness of breath, inability to swallow. Referring Provider: SELF [200] Allergies As of Date: 03/31/2019 (No Known Allergies) Date Reviewed: 03/31/2019 Reviewed by: Vaishali Marks - Fully Assessed Reason for Visit: Sore Throat [200] Cmt: x 5 days Fever [47] Cmt: x 4 days Cough [28] Cmt: and congestion x 2 weeks Primary Visit Diagnosis:Sore throat [J02.9] Other Visit Diagnosis:Acute non-recurrent pansinusitis [J01.40] Order(s):RAPID STREP TEST B/O [[id number]] Order #: [id number] amoxicillin (AMOXIL) 875 mg tabletTake 1 tablet by mouth twice daily for 10 days.Disp: 20 tabletRfl: 0 Brompheniramine-Pseudo eph-DM (BROMFED DM) 2-30-10 mg/5 mL syrupTake 5-10 ml po q6h prnDisp: 120 mLRfl: 0 Prescriptions as of 03/31/2019 Sig: TRI-LINYAH (28) 0.18 MG(7)/0.* AMOXICILLIN 875 MG TABLET Take 1 tablet by mouth twice * BROMPHENIRAMINE-PSEUDO EPHEDRI* Take 5-10 ml po q6h prn Problem List As Of Date 03/31/2019 Noted Resolved Knee pain [M25.569] INVALID FOR* Other instructions from your clinician: ASSESSMENT/PLAN: 1. Sore throat - ICD9: 462, ICD10: J02.9 (primary diagnosis) - suspect viral - Rapid Strep negative in the office today - Discussed supportive care treatment with fluids, rest and analgesia. - The patient may also use warm salt water gargles, throat lozenges and/or OTC throat spray as needed. - The patient should follow up in one week if symptoms persist or worsen - Call back if drooling, increased temperature, symptoms of dehydration and/or still sick in one week - RAPID STREP TEST B/O 2. Acute non-recurrent pansinusitis - ICD9: 461.8, ICD10: J01.40 - Will begin treatment with Amoxicillin for 10 days - Supportive care with plenty of fluids, rest - Follow up in one week if symptoms persist or worsen. Tylenol (generic acetaminophen) 500 mg-2 tabs every 8 hrs. as needed for fever and aches Ibuprofen 600 mg (3-200mg tablets) every 6 hours DO NOT take any other OTC cough or cold medication while taking the prescription Bromfed DM. 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 * Seek medical care immediately, call 911, go to ER if you have chest pain, difficulty breathing, shortness of breath, inability to swallow. Prescriptions ordered this encounter Disp Refills Start End AMOXICILLIN 875 MG TABLET 20 t* 0 03/31/2019 04/10/2019 Route: ORAL Sig: Take 1 tablet by mouth twice daily for 10 days. BROMPHENIRAMINE-PSEUDO EPHEDRINE-DM 2* 120 * 0 03/31/2019 Sig: Take 5-10 ml po q6h prn Medications Discontinued During This Encounter benzonatate (TESSALON PERLE) 100 mg * 40 c* 0 11/18/2018 03/31/2019 Sig: Take 1-2 capsules tid prn Patient not taking: Reported on 03/31/2019 Disc: Course of therapy completed Encounter Status:Closed by VAISHALI MARKS CNP on 03/31/19 [facility] PROGRESSon 03-31-2019 PROGRESS HNO ID: [id number] Author: Vaishali Marks Service: ? Author Type: Nurse Practitioner Type: Progress Notes Filed: 03/31/2019 8:03 PM Note Text: Subjective The history is provided by the patient. No foreign language stenographer was used. HPI Hieu Cali is a 23 year old female who presents today for CC of sinus congestion and pressure. This started about 2 weeks ago. She has had a fever and sore throat since Thursday. She has tried dayquil, nyquil, mucinex, tylenol and ibuprofen. She is also using cough drops. 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 BP 94/62 Pulse 90 Temp 36.6 ?C (97.9 ?F) (Tympanic) Resp 14 Wt 66.6 kg (146 lb 12.8 oz) SpO2 100% Social History Socioeconomic History Marital status: Single Spouse name: Not on file Number of children: Not on file Years of education: Not on file Highest education level: Not on file Occupational History Not on file Social Needs Financial resource strain: Not on file Food insecurity: Worry: Not on file Inability: Not on file Transportation needs: Medical: Not on file Non-medical: Not on file Tobacco Use Smoking status: Never Smoker Smokeless tobacco: Never Used Substance and Sexual Activity Alcohol use: Not on file Drug use: Not on file Sexual activity: Not on file Lifestyle Physical activity: Days per week: Not on file Minutes per session: Not on file Stress: Not on file Relationships Social connections: Talks on phone: Not on file Gets together: Not on file Attends restoration service: Not on file Active member of club or organization: Not on file Attends meetings of clubs or organizations: Not on file Relationship status: Not on file Intimate partner violence: Fear of current or ex partner: Not on file Emotionally abused: Not on file Physically abused: Not on file Forced sexual activity: Not on file Other Topics Concerns: Not on file Social History Narrative Not on file No past medical history on file. I have confirmed and edited as necessary, the [facility] Review of Systems Constitutional: Positive for fever. Negative for chills. HENT: Positive for sore throat. Negative for congestion, ear pain and sinus pain. Respiratory: Positive for cough. Negative for sputum production, shortness of breath and wheezing. Cardiovascular: Negative for chest pain. Musculoskeletal: Negative for myalgias. Neurological: Negative for headaches. Objective Physical Exam Constitutional: She is well-developed, well-nourished, and in no distress. HENT: Head: Normocephalic and atraumatic. Right Ear: External ear and ear canal normal. Tympanic membrane is bulging. A middle ear effusion (serous) is present. Left Ear: Ear canal normal. Tympanic membrane is bulging. A middle ear effusion (serous) is present. Nose: Mucosal edema and rhinorrhea present. Right sinus exhibits maxillary sinus tenderness. Left sinus exhibits maxillary sinus tenderness. Mouth/Throat: Uvula is midline and mucous membranes are normal. Oropharyngeal exudate (white), posterior oropharyngeal edema and posterior oropharyngeal erythema present. Cardiovascular: Normal rate, regular rhythm and normal heart sounds. Pulmonary/Chest: Effort normal and breath sounds normal. No respiratory distress. She has no decreased breath sounds. She has no wheezes. She has no rhonchi. She has no rales. Lymphadenopathy: Head (right side): No submental, no submandibular and no tonsillar adenopathy present. Head (left side): No submental, no submandibular and no tonsillar adenopathy present. She has no cervical adenopathy. Neurological: She is alert. Skin: Skin is warm and dry. Psychiatric: Affect normal. Nursing note and vitals reviewed. ASSESSMENT/PLAN: 1. Sore throat - ICD9: 462, ICD10: J02.9 (primary diagnosis) - suspect viral - suspicous for mono, advise if rash develops or worsening symptoms see PCP for further evaluation - Rapid Strep negative in the office today - Discussed supportive care treatment with fluids, rest and analgesia. - The patient may also use warm salt water gargles, throat lozenges and/or OTC throat spray as needed. - The patient should follow up in one week if symptoms persist or worsen - Call back if drooling, increased temperature, symptoms of dehydration and/or still sick in one week - RAPID STREP TEST B/O 2. Acute non-recurrent pansinusitis - ICD9: 461.8, ICD10: J01.40 - Will begin treatment with Amoxicillin for 10 days - Supportive care with plenty of fluids, rest - Follow up in one week if symptoms persist or worsen. Tylenol (generic acetaminophen) 500 mg-2 tabs every 8 hrs. as needed for fever and aches Ibuprofen 600 mg (3-200mg tablets) every 6 hours DO NOT take any other OTC cough or cold medication while taking the prescription Bromfed DM. 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 * Seek medical care immediately, call 911, go to ER if you have chest pain, difficulty breathing, shortness of breath, inability to swallow. Diagnosis and treatment plan were discussed and questions were answered to the patient's satisfaction. Pt acknowledged understanding of concepts and follow up plan. Specific signs and symptoms that would indicate the need for higher level of care were discussed in detail warranting prompt ER evaluation. Vaishali Marks APRN.CNP Normal [facility] CNOVon 11-18-2018 CNOV Office Visit (UCWSTR ) HIEU CALI ([id number]) 1995 F Date Time Provider Department 11/18/18 4:30 PM VAISHALI MARKS (SIZE WORKER) WSTR During your visit today, we recorded the following information about you: Temperature Pulse Respiration Blood pressure 99 degrees 101/minute 14/minute 112/62 Weight Last Period 64.9 kg 10/27/18 Vaishali Marks APRN.CNP 11/18/2018 5:16 PM Signed Subjective The history is provided by the patient. No foreign language stenographer was used. HPI Hieu Cali is a 23 year old female who presents today for CC of cough, chest congestion, and shortness of breath that started yesterday. She also has had a sore throat for 2 days. She complains of burning with urination and frequency for 3 days. She has used tylenol. 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 BP 112/62 Pulse 101 Temp 37.2 ?C (99 ?F) (Tympanic) Resp 14 Wt 64.9 kg (143 lb) LMP 10/27/2018 SpO2 99% Social History Socioeconomic History Marital status: Single Spouse name: Not on file Number of children: Not on file Years of education: Not on file Highest education level: Not on file Social Needs Financial resource strain: Not on file Food insecurity - worry: Not on file Food insecurity - inability: Not on file Transportation needs - medical: Not on file Transportation needs - non-medical: Not on file Occupational History Not on file Tobacco Use Smoking status: Never Smoker Smokeless tobacco: Never Used Substance and Sexual Activity Alcohol use: Not on file Drug use: Not on file Sexual activity: Not on file Other Topics Concerns: Not on file Social History Narrative Not on file History reviewed. No pertinent past medical history. I have confirmed and edited as necessary, the [facility] Review of Systems Constitutional: Negative for chills and fever. HENT: Positive for sore throat. Negative for congestion, ear pain and sinus pain. Respiratory: Positive for cough. Gastrointestinal: Negative for abdominal pain. Genitourinary: Positive for dysuria. Negative for flank pain, frequency, hematuria and urgency. Musculoskeletal: Negative for myalgias. Neurological: Negative for headaches. Objective Physical Exam Constitutional: She is oriented to person, place, and time and well-developed, well-nourished, and in no distress. HENT: Head: Normocephalic and atraumatic. Right Ear: Tympanic membrane, external ear and ear canal normal. Left Ear: Tympanic membrane and ear canal normal. Mouth/Throat: Uvula is midline and mucous membranes are normal. Posterior oropharyngeal erythema present. No oropharyngeal exudate, posterior oropharyngeal edema or tonsillar abscesses. Pulmonary/Chest: Breath sounds normal. She has no decreased breath sounds. She has no wheezes. She has no rhonchi. She has no rales. Abdominal: Normal appearance and bowel sounds are normal. She exhibits no abdominal bruit, no pulsatile midline mass and no mass. There is no hepatosplenomegaly. There is no tenderness. There is no rigidity, no rebound, no guarding, no CVA tenderness, no tenderness at McBurney's point and negative Palm's sign. Lymphadenopathy: Head (right side): No submental, no submandibular and no tonsillar adenopathy present. Head (left side): No submental, no submandibular and no tonsillar adenopathy present. She has cervical adenopathy. Right cervical: No superficial cervical adenopathy present. Left cervical: Superficial cervical adenopathy present. Neurological: She is alert and oriented to person, place, and time. Skin: Skin is warm and dry. Psychiatric: Affect normal. Nursing note and vitals reviewed. ASSESSMENT/PLAN: 1. Influenza-like illness - ICD9: 799.89, ICD10: R69 (primary diagnosis) Rest, increase water intake Monitor hydration and urine output, need to void 2 times in 8 hours Tylenol and ibuprofen as needed for fever and body aches Tylenol (generic acetaminophen) 500 mg-2 tabs every 8 hrs. as needed for fever and aches Ibuprofen 600 mg (3-200mg tablets) every 6 hours Oscillococcinum - OTC - use as directed on package Salt water gargles, chloraseptic spray or lozenges as needed for sore throat. Warm beverages, honey. Nasal saline spray as needed Cool mist humidifier at night -Mucinex (generic is fine) Guaifenesin 1200 mg twice daily to help with cough and to thin out mucus * Seek medical care immediately, call 911, go to ER if you have chest pain, decreased urine output, difficulty breathing, shortness of breath, inability to swallow. 2. Dysuria - ICD9: 788.1, ICD10: R30.0 We will send the urine for culture, which shows us what organism, if any, we are treating. If we need to start an antibiotic, you will receive a call in 48-72 hours. * Seek medical care immediately, call 911, or go to ER if you have high fevers, severe flank or low back pain, blood in your urine. * Follow up with primary care provider if symptoms persist or worsen. - UA DIP B/O - URINE CULTURE 3. Sore throat - ICD9: 462, ICD10: J02.9 - suspect viral - Rapid Strep negative in the office today - overnight throat culture pending - Discussed supportive care treatment with fluids, rest and analgesia. - The patient may also use warm salt water gargles, throat lozenges and/or OTC throat spray as needed. - The patient should follow up in one week if symptoms persist or worsen - Call back if drooling, increased temperature, symptoms of dehydration and/or still sick in one week - RAPID STREP TEST B/O - GROUP A STREPTOCOCCUS BY PCR * Seek medical care immediately, call 911, go to ER if you have chest pain, difficulty breathing, shortness of breath, inability to swallow. Diagnosis and treatment plan were discussed and questions were answered to the patient's satisfaction. Pt acknowledged understanding of concepts and follow up plan. Specific signs and symptoms that would indicate the need for higher level of care were discussed in detail warranting prompt ER evaluation. EMMETT Telles APRN.CNP 11/18/2018 5:14 PM Signed ASSESSMENT/PLAN: 1. Influenza-like illness - ICD9: 799.89, ICD10: R69 (primary diagnosis) Rest, increase water intake Monitor hydration and urine output, need to void 2 times in 8 hours Tylenol and ibuprofen as needed for fever and body aches Tylenol (generic acetaminophen) 500 mg-2 tabs every 8 hrs. as needed for fever and aches Ibuprofen 600 mg (3-200mg tablets) every 6 hours Oscillococcinum - OTC - use as directed on package Salt water gargles, chloraseptic spray or lozenges as needed for sore throat. Warm beverages, honey. Nasal saline spray as needed Cool mist humidifier at night -Mucinex (generic is fine) Guaifenesin 1200 mg twice daily to help with cough and to thin out mucus * Seek medical care immediately, call 911, go to ER if you have chest pain, decreased urine output, difficulty breathing, shortness of breath, inability to swallow. 2. Dysuria - ICD9: 788.1, ICD10: R30.0 We will send the urine for culture, which shows us what organism, if any, we are treating. If we need to start an antibiotic, you will receive a call in 48-72 hours. * Seek medical care immediately, call 911, or go to ER if you have high fevers, severe flank or low back pain, blood in your urine. * Follow up with primary care provider if symptoms persist or worsen. - UA DIP B/O - URINE CULTURE 3. Sore throat - ICD9: 462, ICD10: J02.9 - suspect viral - Rapid Strep negative in the office today - overnight throat culture pending - Discussed supportive care treatment with fluids, rest and analgesia. - The patient may also use warm salt water gargles, throat lozenges and/or OTC throat spray as needed. - The patient should follow up in one week if symptoms persist or worsen - Call back if drooling, increased temperature, symptoms of dehydration and/or still sick in one week - RAPID STREP TEST B/O - GROUP A STREPTOCOCCUS BY PCR * Seek medical care immediately, call 911, go to ER if you have chest pain, difficulty breathing, shortness of breath, inability to swallow. Referring Provider: SELF [200] Allergies As of Date: 11/18/2018 (No Known Allergies) Date Reviewed: 11/18/2018 Reviewed by: Vaishali ([facility]) Kendrick - Fully Assessed Reason for Visit: UTI [116] Cmt: burning with urination and frequency x 3 days Cough [28] Cmt: chest congestion and some SOB x yesterday body aches [Other] Cmt: x 3 days Sore Throat [200] Cmt: x 2 days Reason For Visit History Recorded Primary Visit Diagnosis:Influenza-li ke illness [R69] Other Visit Diagnoses:Dysuria [R30.0] Sore throat [J02.9] Order(s):UA DIP B/O [[id number]] Order #: [id number] URINE CULTURE [SQURCUL] Order #: [id number] RAPID STREP TEST B/O [[id number]] Order #: [id number] GROUP A STREPTOCOCCUS BY PCR [SQGASPCR] Order #: [id number] benzonatate (TESSALON PERLE) 100 mg capsuleTake 1-2 capsules tid prnDisp: 40 capsuleRfl: 0 Prescriptions as of 11/18/2018 Sig: TRI-LINYAH (28) 0.18 MG(7)/0.* BENZONATATE 100 MG CAPSULE Take 1-2 capsules tid prn Problem List As Of Date 11/18/2018 Noted Resolved Knee pain [M25.569] INVALID FOR* Other instructions from your clinician: ASSESSMENT/PLAN: 1. Influenza-like illness - ICD9: 799.89, ICD10: R69 (primary diagnosis) Rest, increase water intake Monitor hydration and urine output, need to void 2 times in 8 hours Tylenol and ibuprofen as needed for fever and body aches Tylenol (generic acetaminophen) 500 mg-2 tabs every 8 hrs. as needed for fever and aches Ibuprofen 600 mg (3-200mg tablets) every 6 hours Oscillococcinum - OTC - use as directed on package Salt water gargles, chloraseptic spray or lozenges as needed for sore throat. Warm beverages, honey. Nasal saline spray as needed Cool mist humidifier at night -Mucinex (generic is fine) Guaifenesin 1200 mg twice daily to help with cough and to thin out mucus * Seek medical care immediately, call 911, go to ER if you have chest pain, decreased urine output, difficulty breathing, shortness of breath, inability to swallow. 2. Dysuria - ICD9: 788.1, ICD10: R30.0 We will send the urine for culture, which shows us what organism, if any, we are treating. If we need to start an antibiotic, you will receive a call in 48-72 hours. * Seek medical care immediately, call 911, or go to ER if you have high fevers, severe flank or low back pain, blood in your urine. * Follow up with primary care provider if symptoms persist or worsen. - UA DIP B/O - URINE CULTURE 3. Sore throat - ICD9: 462, ICD10: J02.9 - suspect viral - Rapid Strep negative in the office today - overnight throat culture pending - Discussed supportive care treatment with fluids, rest and analgesia. - The patient may also use warm salt water gargles, throat lozenges and/or OTC throat spray as needed. - The patient should follow up in one week if symptoms persist or worsen - Call back if drooling, increased temperature, symptoms of dehydration and/or still sick in one week - RAPID STREP TEST B/O - GROUP A STREPTOCOCCUS BY PCR * Seek medical care immediately, call 911, go to ER if you have chest pain, difficulty breathing, shortness of breath, inability to swallow. Prescriptions ordered this encounter Disp Refills Start End BENZONATATE 100 MG CAPSULE 40 c* 0 11/18/2018 Sig: Take 1-2 capsules tid prn Letter Text Encounter Status:Closed by VAISHALI MARKS CNP on 11/18/18 Normal [facility] Group A Strep by PCRon 11-18 GAS Specimen Source Throat Swab Normal [facility] Comment on above: Performed By: #### G ASPCR #### [facility] [address], [place] [address] Group A Strep PCR Negative Normal [facility] Comment on above: Result Comment: This test was developed and its performance characteristics determined by [facility] [place] [facility] It has not been cleared or approved by the FDA. -[facility] is regulated under CLIA as qualified to perform high-complexity testing. This test is used for clinical purposes. It should not be regarded as investigational or for research. Performed By: #### G ASPCR #### [facility] [address], [place] [address] PROGRESSon 11-18-2018 PROGRESS HNO ID: [id number] Author: Vaishali (Jesu) Kendrick Service: ? Author Type: Nurse Practitioner Type: Progress Notes Filed: 11/18/2018 5:16 PM Note Text: Subjective The history is provided by the patient. No foreign language stenographer was used. HPI Hieu Cali is a 23 year old female who presents today for CC of cough, chest congestion, and shortness of breath that started yesterday. She also has had a sore throat for 2 days. She complains of burning with urination and frequency for 3 days. She has used tylenol. 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 BP 112/62 Pulse 101 Temp 37.2 ?C (99 ?F) (Tympanic) Resp 14 Wt 64.9 kg (143 lb) LMP 10/27/2018 SpO2 99% Social History Socioeconomic History Marital status: Single Spouse name: Not on file Number of children: Not on file Years of education: Not on file Highest education level: Not on file Social Needs Financial resource strain: Not on file Food insecurity - worry: Not on file Food insecurity - inability: Not on file Transportation needs - medical: Not on file Transportation needs - non-medical: Not on file Occupational History Not on file Tobacco Use Smoking status: Never Smoker Smokeless tobacco: Never Used Substance and Sexual Activity Alcohol use: Not on file Drug use: Not on file Sexual activity: Not on file Other Topics Concerns: Not on file Social History Narrative Not on file History reviewed. No pertinent past medical history. I have confirmed and edited as necessary, the [facility] Review of Systems Constitutional: Negative for chills and fever. HENT: Positive for sore throat. Negative for congestion, ear pain and sinus pain. Respiratory: Positive for cough. Gastrointestinal: Negative for abdominal pain. Genitourinary: Positive for dysuria. Negative for flank pain, frequency, hematuria and urgency. Musculoskeletal: Negative for myalgias. Neurological: Negative for headaches. Objective Physical Exam Constitutional: She is oriented to person, place, and time and well-developed, well-nourished, and in no distress. HENT: Head: Normocephalic and atraumatic. Right Ear: Tympanic membrane, external ear and ear canal normal. Left Ear: Tympanic membrane and ear canal normal. Mouth/Throat: Uvula is midline and mucous membranes are normal. Posterior oropharyngeal erythema present. No oropharyngeal exudate, posterior oropharyngeal edema or tonsillar abscesses. Pulmonary/Chest: Breath sounds normal. She has no decreased breath sounds. She has no wheezes. She has no rhonchi. She has no rales. Abdominal: Normal appearance and bowel sounds are normal. She exhibits no abdominal bruit, no pulsatile midline mass and no mass. There is no hepatosplenomegaly. There is no tenderness. There is no rigidity, no rebound, no guarding, no CVA tenderness, no tenderness at McBurney's point and negative Palm's sign. Lymphadenopathy: Head (right side): No submental, no submandibular and no tonsillar adenopathy present. Head (left side): No submental, no submandibular and no tonsillar adenopathy present. She has cervical adenopathy. Right cervical: No superficial cervical adenopathy present. Left cervical: Superficial cervical adenopathy present. Neurological: She is alert and oriented to person, place, and time. Skin: Skin is warm and dry. Psychiatric: Affect normal. Nursing note and vitals reviewed. ASSESSMENT/PLAN: 1. Influenza-like illness - ICD9: 799.89, ICD10: R69 (primary diagnosis) Rest, increase water intake Monitor hydration and urine output, need to void 2 times in 8 hours Tylenol and ibuprofen as needed for fever and body aches Tylenol (generic acetaminophen) 500 mg-2 tabs every 8 hrs. as needed for fever and aches Ibuprofen 600 mg (3-200mg tablets) every 6 hours Oscillococcinum - OTC - use as directed on package Salt water gargles, chloraseptic spray or lozenges as needed for sore throat. Warm beverages, honey. Nasal saline spray as needed Cool mist humidifier at night -Mucinex (generic is fine) Guaifenesin 1200 mg twice daily to help with cough and to thin out mucus * Seek medical care immediately, call 911, go to ER if you have chest pain, decreased urine output, difficulty breathing, shortness of breath, inability to swallow. 2. Dysuria - ICD9: 788.1, ICD10: R30.0 We will send the urine for culture, which shows us what organism, if any, we are treating. If we need to start an antibiotic, you will receive a call in 48-72 hours. * Seek medical care immediately, call 911, or go to ER if you have high fevers, severe flank or low back pain, blood in your urine. * Follow up with primary care provider if symptoms persist or worsen. - UA DIP B/O - URINE CULTURE 3. Sore throat - ICD9: 462, ICD10: J02.9 - suspect viral - Rapid Strep negative in the office today - overnight throat culture pending - Discussed supportive care treatment with fluids, rest and analgesia. - The patient may also use warm salt water gargles, throat lozenges and/or OTC throat spray as needed. - The patient should follow up in one week if symptoms persist or worsen - Call back if drooling, increased temperature, symptoms of dehydration and/or still sick in one week - RAPID STREP TEST B/O - GROUP A STREPTOCOCCUS BY PCR * Seek medical care immediately, call 911, go to ER if you have chest pain, difficulty breathing, shortness of breath, inability to swallow. Diagnosis and treatment plan were discussed and questions were answered to the patient's satisfaction. Pt acknowledged understanding of concepts and follow up plan. Specific signs and symptoms that would indicate the need for higher level of care were discussed in detail warranting prompt ER evaluation. Vaishali Marks APRN.SIZE WORKER Normal [facility] Urine Cultureon 11-18-2018 Bacteria identified Cx Nom (U) Sp. Request/Comment: - Specimen received in preservative Culture Result - <10,000 CFU/ml Normal urogenital mariam Normal [facility] Comment on above: Performed By: #### U RCUL #### [facility] [address] [place], [place] [address] Encounters Encounter Date Encounter Type Care Provider Facility Start: 09-18-2022 End: 09-18-2022 ambulatory [facility] Start: 09-03-2022 End: 09-03-2022 [facility] Start: 02-10-2020 End: 02-10-2020 Subsequent hospital visit by physician Rodrigo Ortiz Work Phone: [facility] Radiology Plan of Treatment Date Care Activity Detail Author Start: 05-01-2020 Influenza vaccination Flu vacc ine (Season Ended) [place] Start: 2016 Screening for malign ant neoplasm of cervix Cervical cancer screen [place], [place] Start: 2014 DTaP/Tdap/Td vaccine (1 - Tdap) DTaP/Tdap/Td vaccine (1 - Tdap) [place] Start: 2011 Screening for Chlamy lisseth trachomatis Chlamydia screen [place] Start: 2010 HIV screening HIV screen [place], [place] Start: 2006 HPV vaccine (1 - 2-d ose series) HPV vaccine (1 - 2-dose series) [place] Start: 1996 Varicella vaccine (1 of 2 - 2-dose childhood series) Varicella vaccine (1 of 2 - 2-dose childhood series) [place] Immunizations Immunization Date Immunization Notes Care Provider Bhakti olivarez 10-05-2015 tuberculin skin test ; purified protein derivative solution, intradermal Rodrigo Ortiz [place], [place] 05-16-2014 influenza virus vacc ine, unspecified formulation Rodrigo Ortiz [place], [place] Payers Date Payer Category Payer Unknown [id number] 2019 Private Health Insurance [facility] xxxxxxxxx 2019-Present [phone] [address] [place] [id number] xxxxxxxxx [id number] Social History Date Type Detail Facility Start: 02-10-2020 Tobacco smoking stat us NVIS Never smoker [place] Start: 02-10-2020 Alcohol intake Current drinke r of alcohol (finding) [place] Start: 02-10-2020 History SDOH Alcohol Frequency 2 [place] Start: 02-10-2020 History SDOH Alcohol Std Drinks 1 [place] Start: 02-10-2020 History SDOH Social Connections Phone 5 [place] Start: 02-10-2020 History SDOH Social Connections [employer] 3 [place] Start: 02-10-2020 History SDOH Social Connections Living 7 [place] Start: 02-10-2020 History SDOH Physica l Activity MPS 6 [place] Start: 04-27-2015 Alcohol Comment occasionally [facility] [place], [place] Sex Assigned At Not on file [place] Exposure to SARS-CoV -2 (event) Unable to assess [place] Summary Purpose Family History No Family History Records FoundNo Family History Records Found Advance Directives No Advanced Directives Records FoundDocuments on File Type Date 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 [facility] [employer] [facility]. provides no warranty or guarantee of the accuracy or completeness of information in this document.
[2024-06-24 13:27] LABS: ALB/GLOB Ratio 0.6 RATIO (0.9-2.4); AST(SGOT) 52 U/L (15-37); Alanine Aminotransfer ALT/SGPT 53 U/L (13-56); Albumin, Serum 2.7 g/dL (3.2-5.0); Alkaline Phosphatase 201 U/L (45-117); Anion Gap 8 (5-15); BUN 10 mg/dL (7-18); BUN/Creat Ratio 17.9 RATIO (10-20); Calcium,Total 9.7 mg/dL (8.5-10.1); Chloride 110 mmol/L (98-107); Creatinine, Serum 0.56 mg/dL (0.55-1.02); EST Glomerular Filtration Rate 136 mL/min (>60); Est Glom Filt Rate - Afr Amer 165 mL/min (>60); Globulin 4.3 g/dL (2.2-4.2); Glucose 106 mg/dL (74-106); Potassium 3.9 mmol/L (3.5-5.1); Sodium Level 137 mmol/L (136-145)
== END | disposition home or self-care (01) ==
LOC: US 08:53
PROVIDERS: Obstetrics & Gynecology; Referring Provider Obstetrics & Gynecology; Visit Provider Obstetrics & Gynecology
DX: O28.8 Other abnormal findings on antenatal screening of mother (principal); R74.8 Abnormal levels of other serum enzymes; Z3A.00 Weeks of gestation of pregnancy not specified
CPT/HCPCS: 36415; 76815; 80053; 86850; 86900; 86901

== ENCOUNTER 2024-06-27 10:43 | Inpatient (IN) | payer OTHER, SELFPAY ==
[2024-06-27] VITALS (68 sets, daily range): BP systolic 99–137; BP diastolic 55–99; PULSE 74–115; RESP 16–18; TEMP 36.3–36.6; O2SAT 97–100; BMI 29.0
[2024-06-27] MEDS: Oxytocin 15 Units/NS 250ml 15 UNITS/250 ML IV.SOLN 2 UNITS IV (11:32)
[2024-06-27] MEDS: Lactated Ringers 1,000 ML 50 ML IV (11:33)
[2024-06-27 11:51] LABS: Absolute Lymphocyte Count 1.88 X10^3/uL (0.83-4.51); Absolute Neutrophil Count 9.9 X10^3/uL (2.0-7.7); Basophil# 0.05 X10^3/uL; Basophil% 0.4 % (0-1); Eosinophil# 0.24 X10^3/uL; Eosinophils% 1.9 % (0-5); Hematocrit 37.4 % (37-47); Hemoglobin 12.5 g/dL (12.0-15.0); Lymphocyte # 1.88 X10^3/ul (0.83-4.51); Lymphocyte % 14.5 % (19-41); Mean Corp Hgb Conc 33.4 g/dL (32-36); Mean Corpuscular Hgb 29.8 pg (27.0-32.0); Mean Corpuscular Volume 89.3 fL (81-99); Mean Platelet Vol. 9.9 fl (6.2-12.0); Monocyte# 0.74 X10^3/uL; Monocyte% 5.7 % (0-10); NRBC Flagged by Analyzer 0 % (0-5); Neutrophil % 76.3 % (47-70); Platelet Count 279 K/mm3 (150-450); RBC Distribution Width CV 12.7 % (11.6-14.6); RBC Distribution Width SD 41.5 fl (35.1-43.9); Red Blood Count 4.19 M/mm3 (4.2-5.4)
--- NOTE | 2024-06-27 11:55 | HP.PCM.OB_ITS ---
HPI - General General Date of Admission: 06/27/24 Date of Service: 06/27/24 HPI Narrative HIEU HERNANDEZ, is a 28 F 37.0 weeks who presents to unit from office for induction of labor for elevated LFTs by Dr Banuelos. Plan for pitocin induction and pre e labs. Maternal Data Information KELSEY Calculator Estimated Delivery Date Method Current WG Current Estimate 07/18/24 LMP (Certain) 37w 0d Final KELSEY: 07/18/24 Final KELSEY Source: US >20 weeks Gestational age: 37.0 weeks PFSH PFS Medical History RSV (respiratory syncytial virus infection) Vaginal delivery no medical history Home Medications ?Medication ?Instructions ?Recorded ?Last Taken ?Type magnesium 250 mg tablet 250 mg PO DAILY 12/01/23 06/26/24 22:00 History multivitamin no.47-iron fum 27 cap PO 12/01/23 06/26/24 22:29 History mg-folate no.1 1 mg-dha 300 mg 1 cap capsule (PNV-DHA) Allergy/AdvReac Type Severity Reaction Status Date / Time No Known Allergies Allergy Verified 06/27/24 10:27 Family History Grandfather Lung cancer Surgical History H/O knee surgery Social History adopted: No household members: spouse and children number of children: 1 current occupational status: employed current occupation: [employer] - [employer] pets and animals: Yes pets and animals: dog(s) history of recent travel: No sexually active: Yes Smoking Status: Never smoker alcohol intake: never details: not while substance use type: does not use well-balanced diet: daily or most days caffeine: No eating out: rarely or never during the past year weight has: decreased > 10 lbs what type of physical activity do you participate in: walking frequency: 3-4 times per week duration: 60-90 minutes/day esperanza/anabaptist: Amish seatbelt use: always do you feel safe at home: Yes additional social history: - Elian History 2 Elective abortions Hx Para 1 Spontaneous abortions Hx # Term Pregnancies 1 Ectopic pregnancies Hx # Pregnancies Multiple births # of living children 1 Past Pregnancies Del. Date Name GA/Weeks Outcome Route Bth Weight Infant Gen Labor Lgth Anesthesia Del Libradoatn Provider FOB 12/04/22 [place] 39 live - full term 7#5 Female epidu ral [employer] Jn Prado Visit Details Expected Delivery Route/Plan Labor Preferences- CB/BF classes: [] labor support person: [] labor intervention preferences: minimal pain management options preferred: natural cut cord/dad catch: [] : [] PP control planned: [] discussed possible routes of delivery and associated risks: [] special requests: [] Plans Covid status: [] Flu vaccine: [] Tdap vaccine: declined Rhogam: declined LARC form signed: done movement and labor precautions reviewed. Problem list reviewed and updated with the most current plan of care details and appropriate orders placed. Relevant counseling for the gestational age provided. Continue routine care and follow up unless otherwise noted in visit notes/problem list details OB Flowsheet Initial Weight: Not Recorded Date -?-?-?-?-?-?-?-?-?-?-?-?- EGA Weight BP Urine Prot -?-?-?-?-?-?-?-?-?-?-?-?- Glucose FHR FuHt Pres Dilation -?-?-?-?-?-?-?-?-?-?-?-?- Effaced St Visit Note 12/09/23 -?-?-?-?-?-?-?-?-?-?-?-?- 8w 2d 157 lb 6 oz 112/66 -?-?-?-?-?-?--?-?-?-?-?-?- 180 -?-?-?-?-?-?-?-?-?-?-?-?- LC- CRL con with LMP. considering nipt. 01/06/24 -?-?-?-?-?-?-?-?-?-?-?-?- 12w 2d 158 lb 8 oz 109/68 Nega tive -?-?-?-?-?-?-?-?-?-?-?-?- Negative 158 -?-?-?-?-?-?-?-?-?-?-?-?- JV- no further n ausea. no complaints. doing anatomy through [facility]. JV- no further nausea. no co mplaints. doing anatomy through [facility]. low risks NIPT (girl) 02/01/24 -?-?-?-?-?-?-?-?-?-?-?-?- 16w 0d 160 lb 108/68 Negative -?-?-?-?--?-?-?-?-?-?-?-?- Negative 150 -?-?-?-?-?-?-?-?-?-?-?-?- SM- no vb lof cr amping 03/01/24 -?-?-?-?-?-?-?-?-?-?-?-?- 20w 1d 163 lb 4 oz 118/80 Nega tive -?-?-?-?-?-?-?-?-?-?-?-?- Negative 152 20 -?-?-?-?-?-?-?-?-?-?-?-?- MH-No VB, LOF. Good FM. Reviewed nl anatomy scan. 03/31/24 -?-?-?-?-?-?-?-?-?-?-?-?- 24w 3d 171 lb 8 oz 108/67 Nega tive -?-?-?-?-?-?-?-?-?-?-?-?- Negative 140 24 -?-?-?-?-?-?-?-?-?-?-?-?- KW- no vb/lof/ct x. good fm. 28 week labs discussed. 04/25/24 -?-?-?-?-?-?-?-?-?-?-?-?- 28w 0d 178 lb 6 oz 102/66 Nega tive -?-?-?-?-?-?-?-?-?-?-?-?- Negative 140 28 -?-?-?-?-?-?-?-?-?-?-?-?- KW- no vb/lof/ct x. good fm. passed glucose 05/13/24 -?-?-?-?-?-?-?-?-?-?-?-?- 30w 4d 179 lb 100/59 Negative -?-?-?-?-?-?-?-?-?-?-?-?- Negative 140 32 -?-?-?-?-?-?-?-?-?-?-?-?- SM- no vb lof go od fm no regular ctx co PAUL. 05/26/24 -?-?-?-?-?-?-?-?-?-?-?-?- 32w 3d 184 lb 8 oz 115/71 Nega tive -?-?-?-?-?-?-?-?-?-?-?-?- Negative 135 34 Cephalic -?-?-?-?-?-?-?-?-?-?-?-?- JV- no lof, vagi nal bleeding, or dec fm. still has hemorrhoid discomfort. declines flu and tdap. 06/06/24 -?-?-?-?-?-?-?-?-?-?-?-?- 34w 0d 187 lb 104/61 Negative -?-?-?-?-?-?-?-?-?-?-?-?- Negative 140 34 Cephalic -?-?-?-?-?-?-?-?-?-?-?-?- KW- no vb/lof/ct x. good fm. GBS next visit 06/16/24 -?-?-?-?-?-?-?-?-?-?-?-?- 35w 3d 187 lb 123/73 Negative -?-?-?-?-?-?-?-?-?-?-?-?- Negative 140 34 Cephalic -?-?-?-?-?-?-?-?-?-?-?-?- [facility]- no vb lof g ood fm no regular ctx growth [facility] preferred [facility]- no vb lof good fm no re gular ctx growth [facility] preferred having some nausea and emesis, eye twitching 06/21/24 -?-?-?-?-?-?-?-?-?-?-?-?- 36w 1d 186 lb 104/69 -?-?-?-?-?-?-?-?-?-?-?-?- 145 35 Cephalic 2 -?-?-?-?-?-?-?-?-?-?-?-?- 50 -2 KW- no vb/ lof/ctx. good fm. nst reactive. has been having headaches but does resolve without tylenol. labs today. KW- no vb/lof/ctx. good fm. nst reactive. has been having headaches but does resolve without tylenol. labs today. JORDAN by SM today-nl. discussed labs with SM. will see twice weekly until delivery 06/24/24 -?-?-?-?-?-?-?-?-?-?-?-?- 36w 4d 188 lb 102/68 Negative -?-?-?-?-?-?-?-?-?-?-?-?- Negative 140 37 Cephalic -?-?-?-?-?-?-?-?-?-?-?-?- JV- jordan today is 10. rpt cmp today. patient denies lof, vaginal bleeding, cramping, abdominal pain, nausea or vomiting. normal growth scan last week. 06/27/24 -?-?-?-?-?-?-?-?-?-?-?-?- 37w 0d 191 lb 113/79 Negative -?-?-?-?-?-?-?-?-?-?-?-?- Negative 140 37 Cephalic 2 .5 -?-?-?-?-?-?-?-?-?-?-?-?- 50 -2 JV- has min d vomiting and dizziness. LFT's were still elevated 3 days ago. sending for IOL. nst reactive NST FHR Rate Baby A Baseline: 150 Variability:: Moderate Accelerations:: 15 x 15 Decelerations:: None NST Reactive:: Yes FHR Category:: Category I Uterine Activity:: irregular ROS Constitutional Constitutional: Denies change in weight, fatigue, fever(s), headache(s), poor appetite or weakness Eyes Eyes: Denies blurry vision, change in vision, floaters, seeing flashes or spots in vision ENT HEENT: Denies dizziness, headache(s), loss taste/smell or sore throat Cardiovascular Cardiovascular: Denies chest pain, dizziness, dyspnea, irregular heart rhythm, lightheadedness, palpitations or rapid heart rate Respiratory/Chest Respiratory/Chest: Denies change in mental status, chest tightness, cough, dyspnea or breast pain Gastrointestinal Gastrointestinal: Denies anorexia, chewing difficulty, constipation, diarrhea or weight changes Genitourinary Genitourinary: Denies difficulty urinating, dysuria, flank pain, genital pain, urinary frequency or urinary urgency Musculoskeletal Musculoskeletal: Denies back pain, difficulty walking, extremity pain, joint pain, muscle cramps or muscle weakness Integumentary Integumentary: Denies lesions or unusual bruising Neurologic Neurologic: Denies abnormal movements, abnormal speech, dizziness, numbness, seizure-like activity, syncope or weakness Psychiatric Psychiatric: Denies behavioral changes, change in appetite, confusion, depression, homicidal ideation, suicidal ideation or suicidal thoughts Endocrine Endocrinology: Denies excessive sweating, polydipsia or polyuria Hematologic/Lymphatic Hematologic/Lymphatic: Denies anemia Allergic/Immunologic Allergic/Immunologic: Denies itchy eyes, lip swelling, throat swelling, tongue swelling or wheezing Vital Signs Vital Signs Vital Signs: 06/27/24 10:27 06/27/24 10:27 06/27/24 10:27 Temperature Temperature Source Temporal Pulse Rate Respiratory Rate 16 Blood Pressure BP Systolic BP Diastolic Pulse Ox 99 06/27/24 10:27 06/27/24 10:40 06/27/24 10:40 Temperature 97.5 F L Temperature Source Pulse Rate 112 H Respiratory Rate Blood Pressure 123/77 H BP Systolic 123 BP Diastolic 77 Pulse Ox 06/27/24 10:41 06/27/24 10:41 Temperature Temperature Source Pulse Rate 104 H Respiratory Rate Blood Pressure BP Systolic BP Diastolic Pulse Ox 98 Weight Weight: 191 lb 2 oz Body Mass Index (BMI) 29.0 Physical Exam Const alert, oriented x3 and no apparent distress General Appearance: cooperative Orientation / Consciousness: awake HEENT normocephalic Neck full ROM Lymph Lymphatic: no lymphadenopathy noted Chest inspection of chest normal Resp normal respiratory effort and normal air movement Effort and Inspection: able to speak in complete sentences and symmetric chest movement GI soft to palpation and non-tender Inspection: gravid Palpation: soft; Negative for tender external exam normal Manual OB Exam: dilated 3, effaced 80 and station -2 Back/Spine normal to inspection Extremity normal to inspection and full ROM Skin no rashes or lesions noted Psych mental status grossly normal Appearance: grossly normal Speech: normal speech Labs Labs Labs: Blood Type O POSITIVE Antibody Screen NEGATIVE Hct 37.4 % (37-47) Hgb 12.5 g/dL (12.0-15.0) Obstetrics Ultrasound Syphilis Total Ab Non-reactive Rubella IgG Antibody Reactive (Nonreactive) Hep Bs Antigen Non-Reactive (Nonreactive) Hepatitis C Antibody Non-Reactive (Nonreactive) Chlamydia DNA (BRENNEN) Negative (Negative) N.gonorrhoeae DNA (BRENNEN) Negative (Negative) HIV 1&2 Antibody Non-Reactive (Nonreactive) Glucose 1 Hr 50 gm 108 mg/dL (70-140) Miscellaneous Test Assessment & Plan (1) Encounter for induction of labor: PLAN: Patient presents IOL, plan management for with pitocin/AROM. Pain management: plans no epidural. GBS negative. Management of any complications: see problem list I have reviewed the [facility] and made any clinically relevant updates. Dr Banuelos aware of assessment/admission and agrees with plan. (2) Elevated LFTs: (3) JORDAN (amniotic fluid index) borderline low: COMMENT: 7.6 (4) Supervision of low-risk : QUALIFIERS: Trimester: second trimester Qualified Code(s): Z34.92 - Encounter for supervision of normal , unspecified, second trimester COMMENT: PRR , KELSEY 07/18/24, girl Yamila STOKES Sophie Elian (5) : QUALIFIERS: Weeks of gestation: 36 weeks Qualified Code(s): Z3A.36 - 36 weeks gestation of COMMENT: NIPT low risk. carrier and ntd declined. Nl anatomy Charges/Coding Multi Select Codes Urinary/Genital Urinary/Genital CPT Codes: No Charge
[2024-06-27] MEDS: Acetaminophen 500 MG Tablet PO (12:13)
[2024-06-27 12:19] LABS: Protein, Urine (Random) 14.5 mg/dL (<11.9); Protein:Creat Ratio 301 mg/g CRE (0-200)
[2024-06-27 12:23] LABS: AST(SGOT) 51 U/L (15-37); Alanine Aminotransfer ALT/SGPT 51 U/L (13-56); Creatinine, Serum 0.55 mg/dL (0.55-1.02); EST Glomerular Filtration Rate 138 mL/min (>60); Est Glom Filt Rate - Afr Amer 167 mL/min (>60); Estimated Creatinine Clearance 175.54 ml/min; LDH 194 U/L (84-246); Uric Acid 6.1 mg/dL (2.6-6.0)
[2024-06-27 12:31] LABS: Amphetamine Urine VISTA NEGATIVE (<1000 ng/mL); Barbiturate Urine VISTA NEGATIVE (< 200 ng/mL); Benzodiazepine Urine VISTA NEGATIVE (< 200 ng/mL); Cocaine Urine VISTA NEGATIVE (< 300 ng/mL); Ecstacy Urine VISTA NEGATIVE (< 500 ng/mL); Methadone Urine VISTA NEGATIVE (< 300 ng/mL); PCP Urine VISTA NEGATIVE (< 25 ng/mL); THC Urine VISTA NEGATIVE (< 50 ng/mL); Vista UDS pH Range 7
[2024-06-27 12:41] LABS: Syphilis Antibodies Non-reactive
--- NOTE | 2024-06-27 15:28 | PCM.PN.BLA ---
Progress Note Coping well with contractions current tracing: FHT: 140 Moderate variability reactive no decelerations category I tracing [place]: 2-3 Contractions Membranes: AROM clear SVE:5/70/-2 A/P: Continue with position changes Titrate pitocin per protocol Epidural per anesthesia GBS neg Anticipate Dr Banuelos aware of above assessment and agrees with plan of care Assessment & Plan Assessment/Plan (1) Pre-eclampsia affecting , antepartum: (2) Encounter for induction of labor: (3) Elevated LFTs: (4) JORDAN (amniotic fluid index) borderline low: (5) Supervision of low-risk : QUALIFIERS: Trimester: second trimester Qualified Code(s): Z34.92 - Encounter for supervision of normal , unspecified, second trimester (6) : QUALIFIERS: Weeks of gestation: 36 weeks Qualified Code(s): Z3A.36 - 36 weeks gestation of Multi Select Codes Urinary/Genital Urinary/Genital CPT Codes: No Charge
[2024-06-27] MEDS: fentaNYL-bupivacaine (epidural) 100 ML BAG EPIDURAL (19:04)
[2024-06-27] MEDS: LACTATED RINGERS 500 ML 100 ML IV (19:12)
[2024-06-27] MEDS: Mag Hydrox/Al Hydrox/Simeth 30 ML UDC PO (20:16)
[2024-06-27] MEDS: Oxytocin 10 UNITS/ML Vial IM (20:51)
--- NOTE | 2024-06-27 20:57 | OB.VAGDELI_ITS ---
Assessment & Plan (1) Vaginal delivery: COMMENT: KW 37.0 weeks Girl Yamila IOL (2) Pre-eclampsia affecting , antepartum: COMMENT: dx at admission (3) Encounter for induction of labor: (4) Elevated LFTs: (5) JORDAN (amniotic fluid index) borderline low: COMMENT: 7.6 (6) Supervision of low-risk : QUALIFIERS: Trimester: second trimester Qualified Code(s): Z34.92 - Encounter for supervision of normal , unspecified, second trimester COMMENT: PRR , KELSEY 07/18/24, girl Yamila PC Sophie Elian (7) : QUALIFIERS: Weeks of gestation: 36 weeks Qualified Code(s): Z3A.36 - 36 weeks gestation of COMMENT: NIPT low risk. carrier and ntd declined. Nl anatomy Maternal Data Information KELSEY Calculator Estimated Delivery Date Method Current WG Current Estimate 07/18/24 LMP (Certain) 37w 0d Final KELSEY: 07/18/24 Final KELSEY Source: US >20 weeks Gestational age: 37.0 Vaginal Delivery Maternal Presentation Maternal Presentation: Medically Indicated Induction Maternal Presentation: Progressed well to 10cm dilated and made steady progress with effective maternal pushing. Delivered the head in RUDY presentation. The head was delivered atraumatically and a loose nuchal cord was identified and infant delivered through. The anterior and posterior shoulders delivered without complication followed by the rest of the infant and the was placed on the maternal abdomen. Delayed cord clamping was employed for approximately 3 minutes. Cord was clamped and cut and gentle traction was applied to the cord and the placenta delivered spontaneously. Immediately following, it was noted to be intact with a 3 vessel cord. The perineum and vagina were inspected and noted to have no laceration. EBL was 150cc. Patient and infant tolerated delivery well. Apgars 8/9. Dr Armstrong notified of vaginal delivery and orders reviewed. Physician agrees with current plan of care. Type of Induction: Pitocin Medical Reason for Induction: Preeclampsia, eclampsia Vaginal Delivery Information Procedure Performed: Spontaneous Vaginal Delivery Surgeon/Practitioner: Lynnette Prado Date of Procedure: 06/27/24 Pre-Procedure Diagnosis: see problem list Post-Procedure Diagnosis: see problem list Type of anesthesia: Epidural Estimated Blood Loss: 150 Time of Delivery: 20:45 Findings Presentation: Vertex Amniotic Membrane Rupture Type: Artificial Amniotic Fluid Description: Clear Placental Delivery Description: Spontaneous Placenta Disposition: [facility] Specimen collected: No Cord Vessel Description: 3 Vessels Cord Entanglement: Around neck x 1, loose Infant A Gender: Female (1 minute): 8 (5 minute): 9 Delayed Cord Clamping: Yes Efficiency Engineer business solutions consultant: No Post Vaginal Deli Medications given after delivery: IV Pitocin and IM Pitocin Episiotomy Description: None Laceration: None Complication Complications: No Multi Select Codes Urinary/Genital Urinary/Genital CPT Codes: 68125 Vaginal Delivery [facility]
[2024-06-27] MEDS: Acetaminophen 500 MG Tablet 1000 MG PO (21:41)
[2024-06-28] VITALS (12 sets, daily range): BP systolic 93–130; BP diastolic 55–72; PULSE 72–94; RESP 16–18; TEMP 36.3–36.7; O2SAT 99–100
--- NOTE | 2024-06-28 07:52 | PCM.PN.OB ---
Subjective Subjective Patient doing well without complaints. Tolerating PO. Ambulating and voiding without difficulty. Feeding well. Denies chest pain, shortness of breath, calf pain/swelling, fevers, chills, lightheadedness. Objective Data Objective Data Vital Signs: Vital Signs Temp Pulse Resp BP Pulse Ox O2 Del Method 97.8 F 72 16 93/55 L 99 Room Air 06/28/24 05:00 06/28/24 05:01 06/28/24 05:00 06/28/24 05:01 06/28/24 05:00 06/28/24 05:00 Oxygen Delivery Method Room Air Weight: 191 lb 2 oz Body Mass Index (BMI) 29.0 Intake & Output: Intake and Output for Last 24 Hours 06/26/24 06/27/24 06/28/24 23:59 23:59 23:59 Intake Total 1405.00 / 1405.00 Output Total 350 / 350 650 / 650 Balance 1055.00 / 1055.00 -650 / -650 Lab / Micro Data 06/27/24 11:05 06/27/24 11:05 Labs: Laboratory Results - last 24 hr 06/27/24 11:05: WBC 13.0 H, RBC 4.19 L, Hgb 12.5, Hct 37.4, MCV 89.3, MCH 29.8, MCHC 33.4, RDW Std Deviation 41.5, RDW Coeff of Gennaro 12.7, Plt Count 279, MPV 9.9, Immature Gran % (Auto) 1.200 H, Neut % (Auto) 76.3 H, Lymph % (Auto) 14.5 L, [place] % (Auto) 5.7, Eos % (Auto) 1.9, Baso % (Auto) 0.4, Absolute Neuts (auto) 9.9 H, Absolute Lymphs (auto) 1.88, Nucleated RBC % 0, Creatinine 0.55, Estim Creat Clear Calc 175.54, Est GFR (MDRD) Af Amer 167, Est GFR (MDRD) Non-Af 138, Uric Acid 6.1 H, AST 51 H, ALT 51, Lactate Dehydrogenase 194, U Random Total Protein 14.5 H, Urine Creatinine 48.10, Protein/Creatinin Ratio 301 H, Urine Opiates Screen NEGATIVE, Urine Methadone Screen NEGATIVE, Ur Barbiturates Screen NEGATIVE, Ur Phencyclidine Scrn NEGATIVE, Ur Amphetamines Screen NEGATIVE, MDMA (Ecstasy) Screen NEGATIVE, U Benzodiazepines Scrn NEGATIVE, Urine Cocaine Screen NEGATIVE, U Cannabinoids Screen NEGATIVE, Ur Drug Screen Comment , Syphilis Total Ab Non-reactive Physical Exam Const alert and oriented x3 HEENT normocephalic Eyes PERRL Neck full ROM Resp normal respiratory effort GI soft to palpation GI Narrative: FF below U Assessment & Plan (1) Vaginal delivery: COMMENT: KW 37.0 weeks Girl Yamila IOL (2) Elevated LFTs: PLAN: Plan s/p PPD # 1 1. routine post delivery care 2. breast feeding- support given 3. rh positive 4. rubella immune 5. rpt CMP today
[2024-06-28] MEDS: Ibuprofen 600 MG Tablet PO ×3 (08:25→23:44)
[2024-06-28 09:24] LABS: ALB/GLOB Ratio 0.6 RATIO (0.9-2.4); AST(SGOT) 55 U/L (15-37); Alanine Aminotransfer ALT/SGPT 52 U/L (13-56); Albumin, Serum 2.3 g/dL (3.2-5.0); Alkaline Phosphatase 193 U/L (45-117); Anion Gap 5 (5-15); BUN 5 mg/dL (7-18); BUN/Creat Ratio 9.8 RATIO (10-20); Calcium,Total 8.9 mg/dL (8.5-10.1); Chloride 111 mmol/L (98-107); Creatinine, Serum 0.51 mg/dL (0.55-1.02); EST Glomerular Filtration Rate 152 mL/min (>60); Est Glom Filt Rate - Afr Amer 184 mL/min (>60); Globulin 3.9 g/dL (2.2-4.2); Glucose 87 mg/dL (74-106); Potassium 4.2 mmol/L (3.5-5.1); Protein, Total 6.2 g/dL (6.4-8.2); Sodium Level 138 mmol/L (136-145)
--- NOTE | 2024-06-28 14:26 | CASEMGMT ---
Social Work Social Work Assessment Labor and Delivery Unit Patient Address: [address] [place] [address] Phone number:? [phone] Date of Referral: 06/27/2024 Time of Referral:? 1000 Referred By: Lynnette Prado Date of Intervention: ?06/28/2024 Time of Intervention:? 1230 Reason for Referral:? Patients father of alcoholism in 2021 SW completed chart review and acknowledged social work consult due maternal family history of alcoholism.? SW presented to bedside and introduced self to mother of baby (MOB ? Samina) and father of baby (FOB- Elian).? SW completed psychosocial assessment with both parents with consent of MOB.? Both participated respectfully in conversation. History obtained from: medical records and mother of baby (MOB) and father of baby (FOB). ? Household composition:? MOISES states that her, FOB and 1.5-year-old daughter live together in a home.? MOB deny concerns regarding housing or safety. Patient's parent/guardian status: MOB state that her and FOB have been for 11 years.? They have another daughter who is 1.5 years old.? There are no other children for either.? ?? Medical History: ?MOISES is 28-year-old female who is 2, para 1 now 2 following delivery of .? MOB received routine care during with [facility], MOB presented to hospital for induction of labor.? MOISES delivered baby on 06/27/2024 at 37 weeks gestation.? Baby girl, Yamila, was born weighing? 6 lbs 10 oz with ?s of 8 and 9 at one and five minutes of life.? MOISES is breast feeding.? Educational Status:? MOB reports that she has an associate?s RN degree.? FOB reports to having a Bachelors degree. Financial Status: MOB and FOB are both gainfully employed outside of the home. 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 FOB works as a primary care sales representative for [employer]. Supplies: MOB report to having all necessary supplies at home including car seat, safe sleep space, clothes, diapers, and wipes. Childcare/Caregiver(s):? MOB and FOB will be primary care givers to baby.? MOB also reports to support from maternal and paternal mothers, aunts, and [id number].? Transportation:?? MOB and FOB both report to having their drivers license and reliable vehicles. Programs/Agencies Involved: ???None Children Services/Legal Issues:?? No history of children services involvement, no issues or concerns warranting referral.? Behavioral Health Issues: ??Mental Health History: MOB and FOB both deny any current or history of mental health disorders.? ?Substance Use History: MOB denies any substance use during .? ?Family History: ?MOB states that her biological father from alcoholism in 2021.? MOB also states that she feels he was also bipolar, however never diagnosed.? Drug Screens No drug screens observed in chart review. Support Systems: ?MOB and FOB state that both their mothers live close and will be their biggest supports.? They also state they have other family members that will be willing to help. Depression/Shaken Baby/Safe Sleeping: ?SW educated MOB on signs of baby blues and mood and anxiety disorders to be mindful of during period.? FOB also educated on signs and symptoms to watch for with MOB regarding mood and anxiety disorders.? Both MOB? and FOB receptive to information provided. ? ASSESSMENT:? ??MOB and baby admitted following labor and delivery.? Upon entering room, baby was sleeping in bassinet, MOB and FOB were eating lunch.? MOB and FOB both participated in assessment, were supportive of each other and looking forward to being home. PLAN:? MOB and baby to be discharged when medically ready.? MOB and FOB were provided with literature regarding [facility], safe sleep, shaken baby prevention, [facility] and education regarding mood and anxiety disorders to be aware of. ? No other services requested or indicated. Danyell Guerra, POULTRY KILLER, GAS STATION OPERATOR?
[2024-06-28] MEDS: Acetaminophen 500 MG Tablet 1000 MG PO (15:56)
[2024-06-28] MEDS: Senna/Docusate Sodium 1 Tablet PO (23:44)
[2024-06-29 02:00] VITALS: BP 120/60; PULSE 74; RESP 17; TEMP 36.8; O2SAT 97
[2024-06-29 02:23] VITALS: BP 120/60; PULSE 74
--- NOTE | 2024-06-29 07:51 | PN.OBGYN_ITS ---
Subjective Subjective Patient doing well without complaints. Tolerating PO. Ambulating and voiding without difficulty. Feeding well. Denies chest pain, shortness of breath, calf pain/swelling, fevers, chills, lightheadedness. Objective Data Objective Data Vital Signs: Vital Signs Temp Pulse Resp BP Pulse Ox O2 Del Method 98.3 F 74 17 120/60 97 Room Air 06/29/24 02:00 06/29/24 02:23 06/29/24 02:00 06/29/24 02:23 06/29/24 02:00 06/29/24 02:00 Oxygen Delivery Method Room Air Weight: 191 lb 2 oz Body Mass Index (BMI) 29.0 Intake & Output: Intake and Output for Last 24 Hours 06/27/24 06/28/24 06/29/24 23:59 23:59 23:59 Intake Total 1405.00 / 1405.00 Output Total 350 / 350 650 / 650 Balance 1055.00 / 1055.00 -650 / -650 Lab / Micro Data 06/27/24 11:05 06/28/24 08:30 Labs: Laboratory Results - last 24 hr 06/28/24 08:30: Sodium 138, Potassium 4.2, Chloride 111 H, Carbon Dioxide 22.0, Anion Gap 5, BUN 5 L, Creatinine 0.51 L, Estim Creat Clear Calc 189.30, Est GFR (MDRD) Af Amer 184, Est GFR (MDRD) Non-Af 152, BUN/Creatinine Ratio 9.8 L, Glucose 87, Calcium 8.9, Total Bilirubin 0.40, AST 55 H, ALT 52, Alkaline Phosphatase 193 H, Total Protein 6.2 L, Albumin 2.3 L, Globulin 3.9, A lbumin/Globulin Ratio 0.6 L Physical Exam Const alert and oriented x3 HEENT normocephalic Eyes PERRL Neck full ROM Resp normal respiratory effort GI soft to palpation GI Narrative: FF below U Assessment & Plan (1) Vaginal delivery: COMMENT: KW 37.0 weeks Girl Yamila IOL (2) Pre-eclampsia affecting , antepartum: COMMENT: dx at admission (3) Elevated LFTs: COMMENT: stable pp PLAN: Plan s/p PPD # 2 1. routine post delivery care 2. breast feeding- support given 3. rh positive 4. rubella immune 5. home today
[2024-06-29] MEDS: Senna/Docusate Sodium 1 Tablet PO (09:13)
[2024-06-29] MEDS: Ibuprofen 600 MG Tablet PO (09:13)
[2024-06-29 09:45] VITALS: BP 121/69; PULSE 85
[2024-06-29 11:00] VITALS: BP 120/69; PULSE 85; RESP 16; TEMP 36.4
== END 2024-06-29 12:00 | disposition home or self-care (01) | DRG 806 ==
PROVIDERS: Nurse Practitioner Women's Health; Admitting Provider Advanced Practice Midwife; Referring Provider Advanced Practice Midwife; Visit Provider Advanced Practice Midwife
DX: O14.94 Unspecified pre-eclampsia, complicating childbirth (principal); Z37.0 Single live birth; O41.03X0 Oligohydramnios, third trimester, not applicable or unspecified; Z3A.37 37 weeks gestation of pregnancy; O69.81X0 Labor and delivery complicated by cord around neck, without compression, not applicable or unspecified; R79.89 Other specified abnormal findings of blood chemistry
CPT/HCPCS: 59025; 59050; 80053; 80307; 82565; 82570; 83615; 84156; 84450; 84460; 84550; 85025; 85027; 86780; 99221; G0378

== ENCOUNTER → 2024-08-04 | Outpatient (CLI) | payer OTHER, SELFPAY ==
--- NOTE | 2024-08-04 10:48 | US_ITS ---
STUDY: ABDOMINAL ULTRASOUND - RIGHT UPPER QUADRANT REASON FOR VISIT: Female, 29 years old right upper quadrant pain TECHNIQUE: Ultrasound evaluation of the right upper quadrant was performed with real-time and static duncan-scale imaging. TECHNICAL QUALITY: Adequate. COMPARISON: None. FINDINGS: Liver: The liver measures 16.2 cm. There is normal echogenicity of the liver. The bile ducts are within normal limits. There is hepatic color flow. The direction of portal flow is hepatopetal. There is no demonstrated mass lesion. Gallbladder: Normal distended gallbladder. The gallbladder wall measures 2.3 mm. There is a negative sonographic Palm''s sign. There is no pericholecystic fluid. There is mild sludge or tiny nonshadowing stones but no definitive evidence for gallstones.. Common Bile Duct (C.B.D.): The common bile duct measures 4.6 mm. Pancreas: Normal size of the head, body and tail of the pancreas. There is normal echogenicity of the pancreas. There is no demonstrated pancreatic mass or cyst. Right Kidney: Normal size of the right kidney. The right kidney measures 11 x 4.8 x 4.5 cm. Normal renal cortex. The right cortex measures 1.2 cm. There is no demonstrated renal mass or cyst. There is no right hydronephrosis. US/Gallbladder IMPRESSION: Mild biliary sludge but no definitive evidence for gallstones or acute cholecystitis If strong clinical suspicion for acute cholecystitis HIDA scan recommended Electronically Signed: Marco Shukla MD at 16:30 EST ,
== END | disposition home or self-care (01) ==
LOC: US 10:47
PROVIDERS: Referring Provider Obstetrics & Gynecology; Visit Provider Obstetrics & Gynecology
DX: R10.11 Right upper quadrant pain (principal)
CPT/HCPCS: 76705

== ENCOUNTER → 2024-08-04 | Outpatient (CLI) | payer OTHER, SELFPAY ==
[2024-08-04 11:08] LABS: Hematocrit 42.6 % (37-47); Hemoglobin 13.9 g/dL (12.0-15.0); Mean Corp Hgb Conc 32.6 g/dL (32-36); Mean Corpuscular Volume 88.9 fL (81-99); Mean Platelet Vol. 8.9 fl (6.2-12.0); Platelet Count 269 K/mm3 (150-450); RBC Distribution Width CV 12.3 % (11.6-14.6); RBC Distribution Width SD 40.4 fl (35.1-43.9); Red Blood Count 4.79 M/mm3 (4.2-5.4); White Blood Count 13.1 K/mm3 (4.4-11.0)
[2024-08-04 11:09] LABS: Absolute Lymphocyte Count 2.75 X10^3/uL (0.83-4.51); Absolute Neutrophil Count 7.7 X10^3/uL (2.0-7.7); Basophil# 0.05 X10^3/uL; Basophil% 0.4 % (0-1); Eosinophil# 1.97 X10^3/uL; Lymphocyte # 2.75 X10^3/ul (0.83-4.51); Monocyte# 0.62 X10^3/uL; Monocyte% 4.7 % (0-10); NRBC Flagged by Analyzer 0 % (0-5); Neutrophil # 7.69 X10^3/uL (2.7-7.7); Neutrophil % 58.6 % (47-70)
[2024-08-04 11:25] LABS: Protein, Urine (Random) 23.1 mg/dL (<11.9); Protein:Creat Ratio 130 mg/g CRE (0-200)
[2024-08-04 11:25] LABS: AST(SGOT) 22 U/L (15-37); Alanine Aminotransfer ALT/SGPT 22 U/L (13-56); Albumin, Serum 3.5 g/dL (3.2-5.0); Alkaline Phosphatase 107 U/L (45-117); Anion Gap 7 (5-15); BUN 14 mg/dL (7-18); BUN/Creat Ratio 18.9 RATIO (10-20); Bilirubin, Direct 0.09 mg/dL (0.00-0.30); Calcium,Total 9.1 mg/dL (8.5-10.1); Chloride 109 mmol/L (98-107); Creatinine, Serum 0.74 mg/dL (0.55-1.02); EST Glomerular Filtration Rate 99 mL/min (>60); Est Glom Filt Rate - Afr Amer 120 mL/min (>60); Globulin 3.6 g/dL (2.2-4.2); Glucose 101 mg/dL (74-106); LDH 180 U/L (84-246); Protein, Total 7.1 g/dL (6.4-8.2); Sodium Level 140 mmol/L (136-145); Uric Acid 5.8 mg/dL (2.6-6.0)
== END | disposition home or self-care (01) ==
LOC: BWCLAB 10:34
PROVIDERS: Referring Provider Obstetrics & Gynecology; Visit Provider Obstetrics & Gynecology
DX: R79.89 Other specified abnormal findings of blood chemistry (principal); R10.11 Right upper quadrant pain
CPT/HCPCS: 36415; 80053; 82248; 82570; 83615; 84156; 84550; 85025

== ENCOUNTER 2024-08-16 08:05 | Day surgery (SDC) | payer OTHER, SELFPAY ==
[2024-08-16] VITALS (9 sets, daily range): BP systolic 90–101; BP diastolic 60–69; PULSE 71–92; RESP 16; TEMP 36.1–36.6; O2SAT 94–100; BMI 27.1
[2024-08-16 08:24] LABS: Internal QC Validated? YES +Cl - CLEAR BKGD; Pregnancy, Urine Negative Negative
--- NOTE | 2024-08-16 08:43 | PCM.PRE.AN2 ---
ASA Classification* ASA Classification ASA Classification: 2 Assessment & Plan Anesthesia* Anesthesia Assessment Anesthesia Assessment: Discussed sedation and/or anesthesia options, risks, benefits, and alternatives with patient/parents/legal guardian/POA. Questions invited. The patient/parents/legal guardian/POA seems to understand and agrees to proceed with anesthesia plan. Reviewed the physical assessment, medical history, allergy history and patient home medications list prior to surgery/procedure/anesthetic and documented any changes. Performed airway and anesthesia risk assessments. Anesthesia Type Anesthesia Type: MAC Anesthesia Focused Assessment* Temperature: 97 F Pulse Rate: 92 Blood Pressure: 101/66 Respiratory Rate: 16 Pulse Ox: 100 Airway Assessment Mouth opens: >3 cm Mallampati Score: II Focused Labs Anesthesia Preop lab: CBC WBC 13.1 K/mm3 (4.4-11.0) H 08/04/24 10:34 RBC 4.79 M/mm3 (4.2-5.4) 08/04/24 10:34 Hgb 13.9 g/dL (12.0-15.0) 08/04/24 10:34 Hct 42.6 % (37-47) 08/04/24 10:34 Plt Count 269 K/mm3 (150-450) 08/04/24 10:34 CHEMISTRY Potassium 4.0 mmol/L (3.5-5.1) 08/04/24 10:34 Sodium 140 mmol/L (136-145) 08/04/24 10:34 BUN 14 mg/dL (7-18) 08/04/24 10:34 Creatinine 0.74 mg/dL (0.55-1.02) 08/04/24 10:34 Glucose 101 mg/dL (74-106) 08/04/24 10:34 TSH 1.31 uIU/mL (0.358-3.74) 10/03/21 10:28 COAG HCG, Quant 404 mIU/mL (1-3) H 11/11/23 09:49 Urine Test Negative Negative 08/16/24 08:15 Pre-Assessment Diagnosis/Proposed Procedure Planned Operative Procedure(s): EGD Anesthesia History Anesthesia History - senior application software engineer: Anesthesia History - senior application software engineer Hx Hospitalization Yes: CHILD 08/11/24 13:26 Any Problems With Anesthesia No 08/11/24 13:26 Cholinesterase deficiency No 08/11/24 13:26 You/Your Family Experience No 08/11/24 13:26 fever (hyperthermia) with Relationship Recent Exposure to Contagious No 08/16/24 08:23 Disease Does patient have nerve No 08/11/24 13:26 stimulator Patient instructed to have device shut off --Does patient have Pacemaker No 08/16/24 08:23 or ICD? When Was Last Pacemaker Check QUESTION #4 FULL TEXT: You/Your Family Experience fever (hyperthermia) with Anesthesia Last Oral Intake Last Oral intake: Last Oral Intake NPO since Meds taken in AM with sips of water? Meds patient instructed to take am of surgery PONV PONV - senior application software engineer: PONV - senior application software engineer Female Yes 08/11/24 13:26 HX of Motion Sickness No 08/11/24 13:26 HX of N/V After Surgery No 08/11/24 13:26 Non-Smoker Yes 08/11/24 13:26 Duration of Surgery greater No 08/11/24 13:26 than 60 minutes Number of Risk Factors 2 08/11/24 13:26 PONV Score Moderate Risk 08/11/24 13:26 Height & Weight Height & Weight: Anesthesia: Height & Weight Height 5 ft 8 in 08/16/24 08:23 Weight: 81 kg 08/16/24 08:23 Body Mass Index (BMI) 27.1 08/16/24 08:23 Respiratory Assessment Respiratory Assessment - senior application software engineer: Respiratory Tract Infection Hx - senior application software engineer Hx Respiratory Tract Infection No 08/11/24 13:26 STOP Sleep Apnea STOP Sleep Apnea - senior application software engineer: STOP Sleep Apnea - senior application software engineer Hx Hypertension No 08/11/24 13:26 Hx Sleep Apnea No 08/11/24 13:26 CPAP BIPAP Do you snore loudly (louder No 08/11/24 13:26 than talking or can be heard Do you often feel tired/ No 08/11/24 13:26 fatigued/ sleepy during daytime? Has anyone observed you stop No 08/11/24 13:26 breathing during sleep? STOP Results Negative 08/11/24 13:26 QUESTION #5 FULL TEXT : Do you snore loudly (louder than talking or can be heard through closed doors)? 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 Specify any problems Hx of Preganancy in last 3 Yes 08/11/24 13:26 Months Nurse Filling Out Transfusion [place] 08/11/24 13:26 & Questions: Date: 08/11/24 08/11/24 13:26 Time: 13:33 08/11/24 13:26 Patient unable to answer at this time (ie. confused, unrespo /Reproduction History /Reproductive History - senior application software engineer: /Reproductive Hx- senior application software engineer Hx Now No 08/11/24 13:26 Gestational Age (in weeks): EDC: Hx Hx Para Hx Section SAB Yes 08/11/24 13:26 [facility] Medical History Wears glasses Blackout Gastric reflux Non-smoker History of echocardiogram Gallbladder sludge Vomiting Nausea Abdominal pain Pre-eclampsia Encounter for induction of labor JORDAN (amniotic fluid index) borderline low Supervision of low-risk RSV (respiratory syncytial virus infection) Vaginal delivery Home Medications ?Medication ?Instructions ?Recorded ?Last Taken ?Type magnesium 250 mg tablet 250 mg PO DAILY 12/01/23 08/15/24 History multivitamin no.47-iron fum 27 1 cap PO DAILY 12/01/23 08/15/24 History mg-folate no.1 1 mg-dha 300 mg capsule (PNV-DHA) cholecalciferol (vitamin D3) 125 125 mcg PO QDAY 08/11/24 08/15/24 History mcg (5,000 unit) capsule Allergy/AdvReac Type Severity Reaction Status Date / Time No Known Allergies Allergy Verified 08/16/24 08:10 Family History Grandfather Lung cancer Surgical History H/O knee surgery Social History adopted: No household members: spouse and children number of children: 1 current occupational status: employed current occupation: [employer] - [place] pets and animals: Yes pets and animals: dog(s) history of recent travel: No sexually active: Yes Smoking Status: Never smoker alcohol intake: never details: not while substance use type: does not use well-balanced diet: daily or most days caffeine: No eating out: rarely or never during the past year weight has: decreased > 10 lbs what type of physical activity do you participate in: walking frequency: 3-4 times per week duration: 60-90 minutes/day esperanza/anabaptism: Yazidism seatbelt use: always do you feel safe at home: Yes additional social history: - Elian Review of Systems (Anesthesia) ROS Narrative System reviewed and no additional complaints, except as documented.
--- NOTE | 2024-08-16 09:15 | IMM_PTH ---
PATIENT: HIEU HERNANDEZ LOC: EN U#:[id number] AGE/SX: 29/F ROOM: RE08/16/[address]: Dr. Kaden Willams MD : 1995 BED: DIS: 08/16/2024 SPEC #: [id number] RECD: 08/16/24 13:24 STATUS: ORTEGA RELucina #: [id number] KIRSTEN: 08/16/24 09:[address]: Kaden Willams DEPT: IMMUNOHISTOCHEMISTRY RECD BY: Lonnie Childress ENTERED: 08/16/24 13:25 SP TYPE: IMMUNO OTHR DR: No Primary Care Phys Tissues: B - Gastric mucous membrane Procedures: H Pylori (initial) PHYSICIAN & INSTITUTION [place] [address] SPECIMEN INFORMATION: Tissue Source: B- Antrum biopsy, E- Gastroesophageal junction biopsy Clinical Info: Nausea/vomiting, gallbladder sludge, elevated LFT's Specimen Number: [id number], E CPT code: 56270d9,38525 METHODOLOGY: Deparaffinized sections of prefer/formalin-fixed tissue or PAP/DQ stained slides are incubated with monoclonal/polyclonal antibodies/oligonucleotide probes. Localization is made via biotin free immunoperoxidase method. Appropriate controls are performed and reacted as expected. Results on target cell population are indicated in the following table: RESULTS: ANTIBODY / CLONE RESULT Block B H Pylori (polyclonal) negative Block E P53 (DO-7) positive, wild type Ki-67 (30-9) positive, low These tests were developed and their performance characteristics determined by [facility]. They may not have been cleared or approved by the U.S. Food and Drug Administration. The FDA has determined that such clearance or approval is not necessary. The above immunohistochemical/dualISH markers are ordered and reviewed by the Pathologist. INTERPRETATION: B. Antrum, biopsy: Negative for Helicobacter pylori organisms. E. Gastroesophageal junction, biopsy: No evidence of dysplasia. AM.mr 08/18/2024
--- NOTE | 2024-08-16 09:15 | EGD_PTH ---
PATIENT: HIEU HERNANDEZ LOC: EN U#:[id number] AGE/SX: 29/F ROOM: RE08/16/[address]: Dr. Kaden Willams MD : 1995 BED: DIS: 08/16/2024 SPEC #: [id number] RECD: 08/16/24 11:02 STATUS: ORTEGA VASHTI #: [id number] KIRSTEN: 08/16/24 09:[address]: Kaden Willams DEPT: SURGICAL PATHOLOGY RECD BY: Amador Witt ENTERED: 08/16/24 11:51 SP TYPE: EGD BIOPSY OTHR DR: No Primary Care Phys Tissues: A - Duodenum, NOS B - Gastric mucous membrane C - Gastric mucous membrane D - COLON BIOPSY E - Gastric mucous membrane F - Esophageal mucous membrane Procedures: Special Stain Group I Surgery Specimen Level IV Alcian Blue/PAS (control) HEADER OPERATION: EGD with biospies and polypectomy PRE-OP DIAGNOSIS: Nausea/vomiting, gallbladder sludge, elevated LFT's TISSUE SUBMITTED: A- Duodenal bulb biopsy, B- Antrum biopsy, C- Greater curvature polyp biopsy x2, D- Fundal polyp biopsy x8, E- Gastroesophageal junction biopsy, F- Mid esophageal plaque biopsy MICROSCOPIC DIAGNOSIS A. Duodenal bulb, biopsy: Gastric metaplasia with associated chronic inflammation. B. Gastric antrum, biopsy: Chronic gastritis. See comment. C. Stomach, greater curvature polyp, biopsy: Fundic gland polyp. D. Fundal polyp, biopsy: Fragments of fundic gland polyp. E. Gastroesophageal junction, biopsy: Chronic inflammation. Changes of reflux. 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 No evidence of dysplasia. See comment. F. Mid esophagus plaque, biopsy: Consistent with eosinophilic esophagitis. See comment. 08/17/2024 COMMENT B. The results of immunohistochemistry for Helicobacter pylori will be reported separately ([id number]). E. Alcian blue/PAS stain with matched control is used in the evaluation of the specimen. Immunohistochemistry ([id number]) supports the above diagnosis. F. Eosinophils number greater than 20 per high power field. Clinical correlation is suggested. MICROSCOPIC DESCRIPTION Slides are reviewed. GROSS DESCRIPTION A. Received in fixative is one container labeled with the patient's name and designated Duodenal bulb biopsy. The specimen consists of multiple irregular fragments of light hatfield soft tissue that in aggregate measure 1.0 x 0.2 x 0.1 cm. The specimen is totally submitted in one cassette. B. Received in fixative is one container labeled with the patient's name and designated Antrum biopsy. The specimen consists of two irregular fragments of light hatfield soft tissue that in aggregate measure 0.8 x 0.3 x 0.1 cm. The specimen is totally submitted in one cassette. C. Received in fixative is one container labeled with the patient's name and designated Greater curvature polyp biopsy. The specimen consists of multiple irregular fragments of light hatfield soft tissue that in aggregate measure 1.0 x 0.3 x 0.1 cm. The specimen is totally submitted in one cassette. D. Received in fixative is one container labeled with the patient's name and designated Fundal polyp biopsy x8. The specimen consists of multiple irregular fragments of light hatfield soft tissue that in aggregate measure 2.5 x 1.5 x 0.2 cm. The specimen is totally submitted in one cassette. E. Received in fixative is one container labeled with the patient's name and designated GE junction biopsy. The specimen consists of two irregular fragments of light hatfield soft tissue that measures 0.5 x 0.2 x 0.1cm. The specimen is totally submitted in one cassette. F. Received in fixative is one container labeled with the patient's name and designated Mid esophageal plaque biopsy. The specimen consists of multiple irregular fragments of light hatfield soft tissue that in aggregate measure 0.4 x 0.2 x 0.1 cm. The specimen is totally submitted in one cassette. SJ 08/16/2024 TC:3 CPT:26760v5,98050
--- NOTE | 2024-08-16 09:15 | PCM.HP.BLA ---
History and Physical Date of Admission: 08/16/24 Date of Service: 08/09/24 MR#: [id number] Acct: [id number] Name: HIEU GALEANA Rep #: [id number] : 1995 Provider: Dr. Kaden Willams MD Age/Sex: 29/F Location: [facility] Status: Signed Intake Vital Signs 06/30/2412:57 08/09/2408:21 Height 5 ft 8 in 5 ft 8 in Weight: 181 lb 2 oz BMI 27.5 BP 102/70 Blood Pressure Location Rt brachial Position Sitting Respiration 18 Pulse 80 Pulse Source Monitor Temp 97.2 F L Temp Source Temporal Pulse Oximetry (%) 99 Oxygen Delivery Method room air Intake Visit Reasons: GALLBLADER Chief Complaint: gallbladder Is patient in pain?: Yes (dull/achey RUQ pain constant ) Allergies No Known Allergies Allergy (Verified 08/09/24 08:22) Medications ?Medication ?Instructions ?Recorded ?Confirmed ?Type magnesium 250 mg tablet 250 mg PO DAILY 12/01/23 08/09/24 History multivitamin no.47-iron fum 27 cap PO 12/01/23 08/09/24 History mg-folate no.1 1 mg-dha 300 mg capsule (PNV-DHA) [facility] Medical History (Updated 08/09/24 @ 16:[address] Kaden Willams MD) Gallbladder sludge Vomiting Nausea Abdominal pain Supervision of low-risk JORDAN (amniotic fluid index) borderline low Encounter for induction of labor Vaginal delivery Pre-eclampsia RSV (respiratory syncytial virus infection) Surgical History H/O knee surgery Family History Grandfather Lung cancer Social History adopted: No household members: spouse and children number of children: 1 current occupational status: employed current occupation: [employer] - [place] pets and animals: Yes pets and animals: dog(s) history of recent travel: No sexually active: Yes Smoking Status: Never smoker alcohol intake: never details: not while substance use type: does not use well-balanced diet: daily or most days caffeine: No eating out: rarely or never during the past year weight has: decreased > 10 lbs what type of physical activity do you participate in: walking frequency: 3-4 times per week duration: 60-90 minutes/day esperanza/yazidism: Gnosticism seatbelt use: always do you feel safe at home: Yes additional social history: - Elian HPI HPI HPI: Patient is a 29-year-old female who presents for gallbladder complaint. They are referred for surgical consultation from women's health. She shares that she has had difficulty each of the last of her 2 pregnancies during the latter 4 months of those pregnancies. She is now 6 weeks and expresses that she is still experiencing postprandial discomfort and has had 5-6 bouts of nausea and vomiting the last 2 weeks. She describes that upon eating fatty or greasy food she will experience pain within 30 or 45 minutes postingestion. This pain is described as dull and achy and occasionally radiates through to her back. She notes that the symptoms are worse in the evening but better around breakfast time. While she describes general constant symptoms she notes that yesterday, for example, she had some soup and did not have any nausea but 30 minutes later had the pain ramp-up. Mrs. Galeana remarks of some associated bloating and bad gas postingestion. She notes that the all the symptoms are very much positionally related and she will try to prop herself up at night which generally seems to help. Patient makes mention of elevated liver function testing this past May. She states she recalls being asked specifically if her hands were itching but she repeatedly denied this inquiry. Patient does acknowledge a history of reflux that is particularly bad during . She describes vomiting almost daily and some mornings waking up aspirating. Now that she has delivered this is much better. Ms. Galeana denies any new foods or supplements. Patient has completed right upper quadrant ultrasound on 08/04/2024 which showed some evidence of sludge but otherwise no morphologic abnormalities. She does suggest that she and her have had family-planning conversations and they are considering more children in the future. Do symptoms build up to a steady level and last at least 30 minutes?- [Yes/no] Does the pain occur at different intervals?- [Yes/no] Is a pain severe enough to interrupt daily activities or has not led to the emergency department visit?- [Yes/no] Is the pain not significantly (less than 20%) related to bowel movements relieved by postural change, or acid suppression?- [Yes/no] ROS General General: Yes fatigue; No weight change, appetite, colon cancer, breast cancer or weakness HEENT HEENT: No difficulty swallowing, eye injury, eye surgery, swollen glands or hoarseness Endo Endocrine: No thyroid disease, diabetes mellitus, thyroid cancer, Hair loss, heat intolerance or cold intolerance Skin Skin: No rash or changing moles Musc Musculoskeletal: Yes back problems; No arthritis, rheumatoid arthritis, gout or joint pain Cardio Cardiovascular: No murmur, pacemaker, heart disease, atrial fibrillation, high blood pressure, heart attack, heart stent, palpitations, shortness of breat with exertion or chest pain Psych Psychiatric: No depression, anxiety or hearing voices Resp Respiratory: No shortness of breath, No sleep apnea, No cough, No COPD, No asthma, No emphysema and No wheezing Gastro Gastrointestinal: Yes abdominal pain, Yes nausea or vomiting, No diarrhea, No constipation, No blood in stool, Yes acid reflux, Yes hemorrhoids, No ulcers, Yes gallbladder problem and No black,tarry stools Earl Hematologic: No blood thinners, No blood disorders, No bleeding, No anemia and No blood clots Neuro Neurologic: Yes numbness (Left arm/ hand ), Yes tingling (left arm/hand) and No weakness Exam Const General: cooperative, comfortable and no acute distress Resp Effort & Inspection: normal respiratory effort GI Other: Mildly overweight, nondistended, no scars, no visible herniation. Soft, mildly tender to palpation right upper quadrant and lesser so the epigastrium. Negative Palm sign. Assessment and Plan Assessment and Plan (1) Nausea and vomiting: Status: Acute (2) Gallbladder sludge: Status: Acute (3) Elevated LFTs: Status: Acute Comment: Appear now resolved with most recent labs Orders: Orders EGD 08/16/24 Plan Patient is a 29-year-old female with ?related complaints of postprandial right upper quadrant discomfort and associated nausea and vomiting. She suggest that the symptoms have occurred consistently across her 2 pregnancies beginning the last 4 months of her gestation. Based on patient's descriptions I have several reservations about clearly describing her symptoms to a gallbladder etiology. Firstly it is unclear to me why her symptoms would only begin in the latter half of her . Secondly she describes a clear postural element to her symptoms. Thirdly her onset of symptoms is rather quick following ingestion for a gallbladder source. And fourth patient's right upper quadrant ultrasound was quite unremarkable with only mild sludge but there was no evidence of ductal dilatation (as would be expected if her elevated alkaline phosphatase and AST levels were more clinically significant) or other morphologic abnormality. I suggested it is possible she could be intermittently passing debris through her biliary tract and this causing some discomfort but I find it more plausible that she has some level of gastritis and reflux that better explains this issue. These latter diagnoses would better explain why increased abdominal pressure (as seen later in ) and postural changes seem impactful. With this suspicion I have recommended EGD with biopsy (for possible H. pylori). I still would keep a gallbladder etiology in the differential and have recommended that we keep with the prior plan to pursue HIDA imaging. If patient is found to have functional gallbladder disorder of a adult then I would recommend pursuing elective cholecystectomy?especially in light of the fact that she admits she and her plan to have more children in the future. ? EGD with biopsy ? Continue with HIDA imaging ? Patient encouraged to practice regular head propping at night and maintain 3 hours of separation between mealtime and bedtime I have examined the patient and the H&P has been reviewed. There are no clinical changes since date of exam. Patient shares that she has had ongoing right upper quadrant and epigastric discomfort. She also notes that she vomited for the first time since her since we last saw 1 another. I discussed that we would plan to examine her upper GI tract carefully for any signs of ulcer disease, plan to test for H. pylori infection, and examine for any signs of hiatal hernia or other abnormality that could explain her symptoms. Will now proceed to endoscopy suite for planned EGD with biopsy.
--- NOTE | 2024-08-16 10:35 | PCM.POST.ANE ---
Anesthesia: Postop Eval I Current Vital Signs Temperature: 97.1 F Pulse Rate: 71 Blood Pressure: 95/63 Respiratory Rate: 16 Pulse Ox: 95 Oxygen Delivery Method: Room Air Assessment Airway patent: Yes Spontaneous unlabored respirations: Yes Mental status: Asleep nausea: No Vomiting: No Anesthesia Complication: No Fluid Hydration Crystalloid volume administer (ml): 180 Total IV fluid infused: 180 Progress Note Anesthesia document: Postop Eval 1 completed: Yes
--- NOTE | 2024-08-16 10:36 | OP.EGD_ITS ---
Patient Name: Samina Galeana Procedure Date: 08/16/2024 9:14 AM Date of : 1995 Age: 29 Procedure: Upper GI endoscopy Indications: Epigastric abdominal pain, Abdominal pain in the right upper quadrant, Dyspepsia, Suspected esophageal reflux, Abdominal bloating, Nausea with vomiting Providers: Kaden Willams MD Referring MD: No Primary Care Physician Medicines: See the Anesthesia note for documentation of the administered medications Patient Profile: Refer to note in patient chart for documentation of history and physical. Complications: No immediate complications. Estimated blood loss: Minimal. Procedure: Pre-Anesthesia Assessment: - The heart rate, respiratory rate, oxygen saturations, blood pressure, adequacy of pulmonary ventilation, and response to care were monitored throughout the procedure. After obtaining informed consent, the endoscope was passed under direct vision. Throughout the procedure, the patient's blood pressure, pulse, and oxygen saturations were monitored continuously. The Endoscope was introduced through the mouth, and advanced to the second part of duodenum. The upper GI endoscopy was somewhat difficult due to abnormal anatomy. Successful completion of the procedure was aided by performing the maneuvers documented (below) in this report. The patient tolerated the procedure well. Scope In: 9:29:34 AM Scope Out: 10:25:02 AM Total Procedure Duration Time 0 hours 55 minutes 28 seconds Findings: No gross lesions were noted in the first portion of the duodenum and in the second portion of the duodenum. Biopsies were taken with a cold forceps for histology. Localized nodular mucosa was found in the duodenal bulb. Biopsies were taken with a cold forceps for histology. Localized mildly erythematous mucosa without bleeding was found in the gastric antrum. Biopsies were taken with a cold forceps for Helicobacter pylori testing. Estimated blood loss was minimal. Two 3 to 5 mm semi-sessile polyps with no bleeding and no stigmata of recent bleeding were found on the greater curvature of the stomach. The polyp was removed with a cold biopsy forceps. Resection and retrieval were complete using a biopsy forceps. Multiple 3 to 10 mm pedunculated and sessile polyps with no bleeding and no stigmata of recent bleeding were found in the gastric fundus. The polyp was removed with a hot snare. Resection and retrieval were complete using a suction (via the working channel). Estimated blood loss was minimal. The Z-line was irregular and was found 38 cm from the incisors. Biopsies were taken with a cold forceps for histology. Estimated blood loss was minimal. A medium-sized hiatal hernia was present. No biopsies or other specimens were collected for this exam. Multiple 5 to 8 mm plaques were found in the mid esophagus, 25 cm from the incisors. Biopsies were taken with a cold forceps for histology. Estimated blood loss was minimal. Impression: - No gross lesions in the first portion of the duodenum and in the second portion of the duodenum. Biopsied. - Nodular mucosa in the duodenal bulb. Biopsied. - Erythematous mucosa in the antrum. Biopsied. - Two gastric polyps. Resected and retrieved. - Multiple gastric polyps. Resected and retrieved. - Z-line irregular, 38 cm from the incisors. Biopsied. - Medium-sized hiatal hernia. No specimens collected. - Multiple plaques in the mid esophagus. Biopsied. Recommendation: - Discharge patient to home (via wheelchair). - No aspirin, ibuprofen, naproxen, or other non-steroidal anti-inflammatory drugs for 2 days after biopsy. - Await pathology results. - Telephone my office for pathology results in 2 days. Procedure Code(s): --- Professional --- 37643, Esophagogastroduodenoscopy, flexible, transoral; with removal of tumor(s), polyp(s), or other lesion(s) by snare technique 17333, 59, Esophagogastroduodenoscopy, flexible, transoral; with biopsy, single or multiple Diagnosis Code(s): --- Professional --- K31.89, Other diseases of stomach and duodenum K31.7, Polyp of stomach and duodenum K22.89, Other specified disease of esophagus K44.9, Diaphragmatic hernia without obstruction or gangrene R10.13, Epigastric pain R10.11, Right upper quadrant pain R14.0, Abdominal distension (gaseous) R11.2, Nausea with vomiting, unspecified CPT copyright 2021 [employer]. All rights reserved. The codes documented in this report are preliminary and upon industrial plant custodian review may be revised to meet current compliance requirements. Kaden Willams MD 08/16/2024 10:36:01 AM This report has been signed electronically. Number of Addenda: 0 Note Initiated On: 08/16/2024 9:14 AM
--- NOTE | 2024-08-16 10:36 | OP.CCLET_ITS ---
08/16/2024 No Primary Care Physician Re : Upper GI endoscopy procedure for Samina Galeana Dear Care Physician This procedure was performed on Friday, August 16, 2024. My impressions and recommendations are as follows: Impressions : - No gross lesions in the first portion of the duodenum and in the second portion of the duodenum. Biopsied. - Nodular mucosa in the duodenal bulb. Biopsied. - Erythematous mucosa in the antrum. Biopsied. - Two gastric polyps. Resected and retrieved. - Multiple gastric polyps. Resected and retrieved. - Z-line irregular, 38 cm from the incisors. Biopsied. - Medium-sized hiatal hernia. No specimens collected. - Multiple plaques in the mid esophagus. Biopsied. Recommendations : - Discharge patient to home (via wheelchair). - No aspirin, ibuprofen, naproxen, or other non-steroidal anti-inflammatory drugs for 2 days after biopsy. - Await pathology results. - Telephone my office for pathology results in 2 days. My findings are described in the full procedure note, which is enclosed. If I can be of further assistance, please feel free to contact me at Doctor phone number(s): , Work: . Sincerely, Kaden Willams MD 08/16/2024 10:36:01 AM This report has been signed electronically.
--- NOTE | 2024-08-16 12:44 | PCM.POSTANE2 ---
Anesthesia Postop Eval I Sum Postop Eval Completion status Anesthesia document: Postop Eval 1 completed: Yes Anesthesia Postop Eval I Summary Anesthesia Postop Eval I Summary: Anesthesia Postop Eval I: Assessment Summary Airway patent Yes 08/16/24 10:36 [email or web address] Spontaneous unlabored Yes 08/16/24 10:36 [email or web address] respirations Mental status Asleep 08/16/24 10:36 [email or web address] nausea No 08/16/24 10:36 [email or web address] Vomiting No 08/16/24 10:36 [email or web address] Anesthesia Postop Eval I: Fluid Summary Crystalloid volume administer 180 08/16/24 10:36 [email or web address] (ml) Colloids volume administered ( ml) Blood Product volume administered (ml) Total IV fluid infused 180 08/16/24 10:36 [email or web address] Anesthesia Postop Eval I: Summary Notes Anesthesia Complication No 08/16/24 10:36 [email or web address] Anesthesia Complication Comment: Post-operative progress note Anesthesia: Postop Eval II Evaluation Mental status: Awake Pain Level: 0 nausea: No Vomiting: No
== END 2024-08-16 12:03 | disposition home or self-care (01) ==
LOC: EN 08:06 → AC 08:08
PROVIDERS: Anesthesiology; Visit Provider Surgery
PROC: 0DJ08ZZ Inspection of Upper Intestinal Tract, Via Natural or Artificial Opening Endoscopic (ICD-10-PCS; CPT 43235; principal; 2024-08-16 09:10)
DX: R11.2 Nausea with vomiting, unspecified (principal); K31.7 Polyp of stomach and duodenum; R10.13 Epigastric pain; K44.9 Diaphragmatic hernia without obstruction or gangrene; K83.8 Other specified diseases of biliary tract; R10.11 Right upper quadrant pain; R79.89 Other specified abnormal findings of blood chemistry; K22.89 Other specified disease of esophagus; R14.0 Abdominal distension (gaseous); K31.89 Other diseases of stomach and duodenum
CPT/HCPCS: 43251; 43239; 81025; 88305; 88312; 88342; A4216; J2405

== ENCOUNTER → 2024-10-07 | Outpatient (CLI) | payer OTHER, SELFPAY ==
[2024-10-07 15:15] LABS: Absolute Lymphocyte Count 3.65 X10^3/uL (0.83-4.51); Absolute Neutrophil Count 4.9 X10^3/uL (2.0-7.7); Basophil# 0.05 X10^3/uL; Basophil% 0.5 % (0-1); Eosinophil# 0.72 X10^3/uL; Eosinophils% 7.2 % (0-5); Hemoglobin 13.1 g/dL (12.0-15.0); Lymphocyte # 3.65 X10^3/ul (0.83-4.51); Lymphocyte % 36.7 % (19-41); Mean Corp Hgb Conc 32.8 g/dL (32-36); Mean Corpuscular Hgb 29.1 pg (27.0-32.0); Mean Corpuscular Volume 88.9 fL (81-99); Mean Platelet Vol. 8.9 fl (6.2-12.0); Monocyte# 0.61 X10^3/uL; Monocyte% 6.1 % (0-10); NRBC Flagged by Analyzer 0 % (0-5); Neutrophil # 4.89 X10^3/uL (2.7-7.7); Neutrophil % 49.3 % (47-70); Platelet Count 352 K/mm3 (150-450); RBC Distribution Width CV 12.9 % (11.6-14.6); RBC Distribution Width SD 42.3 fl (35.1-43.9); White Blood Count 9.9 K/mm3 (4.4-11.0)
[2024-10-07 15:51] LABS: ALB/GLOB Ratio 1.1 RATIO (0.9-2.4); AST(SGOT) 18 U/L (15-37); Alanine Aminotransfer ALT/SGPT 18 U/L (13-56); Albumin, Serum 4.1 g/dL (3.2-5.0); Alkaline Phosphatase 98 U/L (45-117); Anion Gap 4 (5-15); BUN 17 mg/dL (7-18); BUN/Creat Ratio 25.6 RATIO (10-20); Calcium,Total 9.7 mg/dL (8.5-10.1); Chloride 109 mmol/L (98-107); Creatinine, Serum 0.66 mg/dL (0.55-1.02); EST Glomerular Filtration Rate 112 mL/min (>60); Est Glom Filt Rate - Afr Amer 135 mL/min (>60); Globulin 3.7 g/dL (2.2-4.2); Glucose 91 mg/dL (74-106); Potassium 4.2 mmol/L (3.5-5.1); Protein, Total 7.8 g/dL (6.4-8.2); Sodium Level 140 mmol/L (136-145)
== END | disposition home or self-care (01) ==
LOC: LAB 14:51
PROVIDERS: Referring Provider Surgery; Visit Provider Surgery
DX: R10.9 Unspecified abdominal pain (principal); R11.0 Nausea
CPT/HCPCS: 36415; 80053; 85025

== ENCOUNTER 2024-10-13 16:17 | Emergency (ER) | payer OTHER, SELFPAY ==
[2024-10-13 16:18] VITALS: BP 125/82; PULSE 101; RESP 18; TEMP 36.2; O2SAT 100; BMI 26.6
--- NOTE | 2024-10-13 17:21 | EX.ED.DYSGE1 ---
HPI History of Present Illness Chief Complaint: Abd Pain Detail of Chief Complaint: Multitude of symptoms that started Informant: patient Onset/Context/Timing Onset: Month(s) Timing: Waxes and wanes Quality: Abnormal sensation with movement right upper quadrant, twitching of eyelid Location: Multitude Current Severity: Unable to determine Maximum Severity: Unable to determine Worsened by: Unknown Relieved by: Nothing Associated Symptoms Associated Symptoms: HPI narrative Narrative Narrative: Patient is a 29-year-old woman who has a 3-month-old and [id number] at home. She presents with right upper quadrant pain that radiates to her back. She has had an ultrasound, HIDA scan and an EGD performed by Dr. Willams. The EGD revealed a hiatal hernia and she is scheduled for Regina's procedure. She also was diagnosed with eosinophilic esophagitis/Cisse's esophagitis. There is no complaint of black or maroon-colored stool. She is presently complaining of bilateral hand numbness. She states that her eye is twitching presently. I informed her I do not see it. She became angry and stated you are going to blow me off . I informed the patient that I have been tentatively listening to you. She then responded that Dr. Willams saw her eye twitching. I informed her that I was not aware of this and I informed and asked if I made any comment regarding Dr. Willams observing the eye twitching or not. She then commented that when she looks in the mirror she sees her eyelid twitching. I informed her that presently I do not see twitching. Patient began to cry. She then stated I would not of come in. I have all these symptoms. She then informing that she has a 3-month-old at home and a [id number]. She began to cry more. She denies double vision blurred vision loss of vision. She denies trouble speech or swallowing. When patient did complain of bilateral finger numbness and prior to her outbreak she was noted to have bilateral Chvostek sign. Prior similar symptoms: Yes Recent Illness/Hospitalization: Yes [facility] Medical History Intractable abdominal pain Wears glasses Blackout Gastric reflux Non-smoker History of echocardiogram Gallbladder sludge Vomiting Nausea Abdominal pain Pre-eclampsia Encounter for induction of labor JORDAN (amniotic fluid index) borderline low Supervision of low-risk RSV (respiratory syncytial virus infection) Vaginal delivery Home Medications ?Medication ?Instructions ?Recorded ?Last Taken ?Type magnesium 250 mg tablet 250 mg PO DAILY 12/01/23 08/15/24 History multivitamin no.47-iron fum 27 1 cap PO DAILY 12/01/23 08/15/24 History mg-folate no.1 1 mg-dha 300 mg capsule (PNV-DHA) cholecalciferol (vitamin D3) 125 125 mcg PO QDAY 08/11/24 08/15/24 History mcg (5,000 unit) capsule budesonide 1 mg/2 mL suspension 1 mg (2 mL) inhalation QDAY 12 08/17/24 Unknown Rx for nebulization (Pulmicort) weeks #168 mL pantoprazole 40 mg tablet,delayed 40 mg PO QDAY #60 tabs 08/17/24 Unknown Rx release Allergy/AdvReac Type Severity Reaction Status Date / Time No Known Allergies Allergy Verified 10/13/24 16:22 Family History Grandfather Lung cancer Surgical History H/O knee surgery Social History adopted: No household members: spouse and children number of children: 1 current occupational status: employed current occupation: [employer] - [employer] pets and animals: Yes pets and animals: dog(s) history of recent travel: No sexually active: Yes Smoking Status: Never smoker alcohol intake: never details: not while substance use type: does not use well-balanced diet: daily or most days caffeine: No eating out: rarely or never during the past year weight has: decreased > 10 lbs what type of physical activity do you participate in: walking frequency: 3-4 times per week duration: 60-90 minutes/day esperanza/shinto: [employer] seatbelt use: always do you feel safe at home: Yes additional social history: - Elian ROS ROS ED Constitutional Constitutional ED: Denies chills, fever(s), subjective, sweats or weight loss Eyes Eyes: Denies blurry vision, change in vision or diplopia ENT ENT ED: Reports other Details: Eyelid twitching ; Denies ear pain, rhinorrhea or sore throat Cardiovascular Cardiovascular: Denies chest pain or palpitations Respiratory/Chest Respiratory/Chest: Denies cough, dyspnea or dyspnea on exertion Gastrointestinal Gastrointestinal: Reports abdominal pain and nausea; Denies melena or vomiting Musculoskeletal Musculoskeletal: Reports back pain Integumentary Denies rash Neurologic Neurologic: Reports paresthesias RUE and LUE Hematologic/Lymphatic Hematologic/Lymphatic: Reports systems reviewed and no addt'l complaints, except as documented EXAM Physical Exam Const Vital Signs: 10/13/24 16:18 Temperature 97.2 F L Temperature Source Temporal Pulse Rate 101 H Respiratory Rate 18 Blood Pressure 125/82 H Blood Pressure Mean 96 Pulse Ox 100 Oxygen Delivery Method Room Air Positive well nourished and well developed General Appearance ED: well developed and NAD; Negative for pallor HEENT Reports moist mucous membranes HEENT Narrative: Positive Chvostek sign bilaterally. Ears normal. Nares patent. Eyes PERRL and EOMs intact bilaterally General Eye ED: Negative for pale conjunctiva or scleral icterus Chest Wall inspection of chest normal Resp normal respiratory effort and clear to auscultation bilaterally Cardio regular rate, regular rhythm, S1 normal heart sound and no murmurs GI normal to inspection, nondistended, normoactive bowel sounds, non-distended and no masses; Negative for non-tender or hepatosplenomegaly GI Narrative: Patient has tenderness by the right lower 12th 13th rib. This was palpated in the anterior axillary line. Inspection: Negative for abdominal distention Auscultation: normoactive bowel sounds Palpation: soft; Negative for tender or guarding Back/Spine no CVA tenderness Extremity normal to inspection General Extremety ED: Negative for edema or tenderness General Extremity: Negative for edema Neuro oriented x3 and CN's II-XII intact bilaterally Sensorium / Orientation: alert Psych Mood & Affect: depressed and tearful Skin no rashes or lesions noted, no wounds and skin turgor normal General Skin Exam: Negative for jaundice or pallor MDM MDM MDM Narrative Medical decision making narrative: With patient having paresthesias bilateral spastic sign this may represent hyperventilation syndrome. Need to rule out hypocalcemia. Will obtain comprehensive metabolic panel to assess calcium as well as albumin. CBC was obtained to assess for anemia since she appears pale. In my opinion patient's had a significant workup for the discomfort she has had since in the right upper quadrant and no further workup is needed at this time. History & Record Review Additional record(s) reviewed:: Prior outpatient record (EGD revealed Cisse's esophagitis and hiatal hernia. This performed August 16, 2024.), Prior labs and Other (Patient did have a negative right upper quadrant ultrasound as well as HIDA scan.) Lab Data Attestation: I reviewed the patient's lab results. Lab results narrative: CBC is unremarkable other than mild lymphocytosis. Comprehensive metabolic panel is normal Labs: Laboratory Results - last 24 hr 10/13/24 17:15 WBC 9.9 RBC 4.59 Hgb 13.5 Hct 40.5 MCV 88.2 MCH 29.4 MCHC 33.3 RDW Std Deviation 42.0 RDW Coeff of Gennaro 13.0 Plt Count 352 MPV 9.0 Immature Gran % (Auto) 0.200 Neut % (Auto) 42.4 L Lymph % (Auto) 42.2 H [place] % (Auto) 6.6 Eos % (Auto) 7.8 H Baso % (Auto) 0.8 Absolute Neuts (auto) 4.2 Absolute Lymphs (auto) 4.19 Nucleated RBC % 0 Sodium 138 Potassium 3.6 Chloride 107 Carbon Dioxide 26.0 Anion Gap 5 BUN 14 Creatinine 0.95 Estim Creat Clear Calc 96.86 Est GFR (MDRD) Af Amer 89 Est GFR (MDRD) Non-Af 73 BUN/Creatinine Ratio 14.7 Glucose 91 Calcium 9.6 Total Bilirubin 0.20 AST 17 ALT 20 Alkaline Phosphatase 101 Total Protein 7.9 Albumin 4.1 Globulin 3.8 Albumin/Globulin Ratio 1.1 Treatment and Re-Evaluation :: Patient was informed of results. Patient was told that I am uncertain what is causing her abdominal pain. She began to cry again and commented that it is tough with 3-month-old and [id number] at home. Discharge Plan Triage Chief Complaint: Abd Pain ED Provider: Jared Valverde Dx/Rx/DC Orders Clinical Impression: Chronic right upper quadrant pain, Intermittent vomiting, Paresthesia of both hands, Esophageal hiatal hernia, Cisse esophagus with esophagitis Instructions: ED Abdominal Pain Unkn Cause Fem, ED Paraesthesias Prescriptions: No Action PNV-DHA 27 mg iron-1 mg -300 mg capsule 1 cap PO DAILY magnesium 250 mg tablet 250 mg PO DAILY cholecalciferol (vitamin D3) 125 mcg (5,000 unit) capsule 125 mcg PO QDAY pantoprazole 40 mg tablet,delayed release (DR/EC) 40 mg PO QDAY Qty: 60 1RF Rx Instructions: Take one tab by mouth daily budesonide [Pulmicort] 1 mg/2 mL suspension for nebulization 1 mg inhalation QDAY 84 Days Qty: 168 0RF Rx Instructions: Take one orally twice daily for 12 weeks Primary Care Provider: Care Physician,No Primary Referrals: Carmita Robledo MD [Med Staff - Reservoir Engineering Manager] - 1-2 Weeks Care Physician,No Primary [Primary Care Provider] - Print Language: Angolan Disposition Disposition: Home, Self Care
[2024-10-13 17:34] LABS: Absolute Lymphocyte Count 4.19 X10^3/uL (0.83-4.51); Absolute Neutrophil Count 4.2 X10^3/uL (2.0-7.7); Basophil# 0.08 X10^3/uL; Basophil% 0.8 % (0-1); Eosinophil# 0.77 X10^3/uL; Eosinophils% 7.8 % (0-5); Hematocrit 40.5 % (37-47); Hemoglobin 13.5 g/dL (12.0-15.0); Lymphocyte # 4.19 X10^3/ul (0.83-4.51); Lymphocyte % 42.2 % (19-41); Mean Corp Hgb Conc 33.3 g/dL (32-36); Mean Corpuscular Hgb 29.4 pg (27.0-32.0); Mean Corpuscular Volume 88.2 fL (81-99); Monocyte# 0.65 X10^3/uL; Monocyte% 6.6 % (0-10); NRBC Flagged by Analyzer 0 % (0-5); Neutrophil # 4.21 X10^3/uL (2.7-7.7); Neutrophil % 42.4 % (47-70); Platelet Count 352 K/mm3 (150-450); Red Blood Count 4.59 M/mm3 (4.2-5.4); White Blood Count 9.9 K/mm3 (4.4-11.0)
[2024-10-13 17:42] LABS: ALB/GLOB Ratio 1.1 RATIO (0.9-2.4); AST(SGOT) 17 U/L (15-37); Alanine Aminotransfer ALT/SGPT 20 U/L (13-56); Albumin, Serum 4.1 g/dL (3.2-5.0); Alkaline Phosphatase 101 U/L (45-117); Anion Gap 5 (5-15); BUN 14 mg/dL (7-18); BUN/Creat Ratio 14.7 RATIO (10-20); Calcium,Total 9.6 mg/dL (8.5-10.1); Chloride 107 mmol/L (98-107); Creatinine, Serum 0.95 mg/dL (0.55-1.02); EST Glomerular Filtration Rate 73 mL/min (>60); Est Glom Filt Rate - Afr Amer 89 mL/min (>60); Estimated Creatinine Clearance 96.86 ml/min; Globulin 3.8 g/dL (2.2-4.2); Glucose 91 mg/dL (74-106); Potassium 3.6 mmol/L (3.5-5.1); Protein, Total 7.9 g/dL (6.4-8.2); Sodium Level 138 mmol/L (136-145)
== END 2024-10-13 18:33 | disposition home or self-care (01) ==
PROVIDERS: Emergency Provider Emergency Medicine; Referring Provider Emergency Medicine; Visit Provider Emergency Medicine
DX: G89.29 Other chronic pain (principal); K44.9 Diaphragmatic hernia without obstruction or gangrene; R20.2 Paresthesia of skin; K22.70 Barrett's esophagus without dysplasia; R11.10 Vomiting, unspecified; R10.11 Right upper quadrant pain; K21.00 Gastro-esophageal reflux disease with esophagitis, without bleeding; Z79.899 Other long term (current) drug therapy
CPT/HCPCS: 80053; 85025; 99284; A4216

== ENCOUNTER → 2024-10-28 | Outpatient (CLI) | payer OTHER, SELFPAY ==
--- NOTE | 2024-10-28 07:56 | CT_ITS ---
PROCEDURE: ABDOMEN WITH IV CONTRAST REASON FOR EXAM: Right upper quadrant pain since July. Intermittent nausea and vomiting. TECHNIQUE: Abdomen CT with intravenous contrast. IV CONTRAST: COMPARISON: None. FINDINGS: Lung bases: Minimal pleural thickening at the left lung base. Liver: Unremarkable. Gallbladder: Unremarkable. Spleen: Unremarkable. Pancreas: Unremarkable. Adrenals: Unremarkable. Kidneys: Unremarkable. Bowel: Visualized loops of bowel in the upper abdomen are unremarkable. Lymph nodes: No suspicious lymph node enlargement. Vasculature: Unremarkable Peritoneum / Retroperitoneum: No ascites or free air at the upper abdomen. Bones: Unremarkable. CT/Abdomen WITH IV Contrast IMPRESSION: Minimal left pleural thickening. No other abnormality is seen. One or more dose reduction techniques were used (e.g., Automated exposure contr ol, adjustment of the mA and/or kV according to patient size, use of iterative reconstruction technique). Reading Location: [id number]
== END | disposition home or self-care (01) ==
LOC: CT 07:55
PROVIDERS: Referring Provider Surgery; Visit Provider Surgery
DX: R10.11 Right upper quadrant pain (principal); G89.29 Other chronic pain
CPT/HCPCS: 74160; Q9967

== ENCOUNTER 2025-05-24 12:00 | Day surgery (SDC) | payer OTHER, SELFPAY ==
[2025-05-24] VITALS (7 sets, daily range): BP systolic 98–106; BP diastolic 53–68; PULSE 79–97; RESP 18–20; TEMP 36.7–36.9; O2SAT 99–100; BMI 22.8
[2025-05-24 12:18] LABS: Internal QC Validated? YES +Cl - CLEAR BKGD; Pregnancy, Urine Negative Negative; Record Kit Lot#,Urine Preg 0000964736
[2025-05-24] MEDS: Lactated Ringers 1,000 ML 15 ML IV (12:31)
--- NOTE | 2025-05-24 12:41 | PRE.ANES_ITS ---
ASA Classification* ASA Classification ASA Classification: 1 Assessment & Plan Anesthesia* Anesthesia Assessment Anesthesia Assessment: Discussed sedation and/or anesthesia options, risks, benefits, and alternatives with patient/parents/legal guardian/POA. Questions invited. The patient/parents/legal guardian/POA seems to understand and agrees to proceed with anesthesia plan. Reviewed the physical assessment, medical history, allergy history and patient home medications list prior to surgery/procedure/anesthetic and documented any changes. Performed airway and anesthesia risk assessments. Anesthesia Type Anesthesia Type: MAC History Source History Obtained from:: Chart Anesthesia Focused Assessment* Temperature: 98.2 F Pulse Rate: 88 Blood Pressure: 98/68 Respiratory Rate: 18 Pulse Ox: 100 Oxygen Delivery Method: Room Air Airway Assessment Mouth opens: >3 cm Mallampati Score: I Neck Range of motion (ROM): Full ROM Labs Anesthesia Preop lab: CBC WBC, (4.4-11.0) 9.9 K/mm3 10/13/24, 17:15 RBC, (4.2-5.4) 4.59 M/mm3 10/13/24, 17:15 Hgb, (12.0-15.0) 13.5 g/dL 10/13/24, 17:15 Hct, (37-47) 40.5 % 10/13/24, 17:15 Plt Count, (150-450) 352 K/mm3 10/13/24, 17:15 CHEMISTRY Potassium, (3.5-5.1) 3.6 mmol/L 10/13/24, 17:15 Sodium, (136-145) 138 mmol/L 10/13/24, 17:15 BUN, (7-18) 14 mg/dL 10/13/24, 17:15 Creatinine, (0.55-1.02) 0.95 mg/dL 10/13/24, 17:15 Glucose, (74-106) 91 mg/dL 10/13/24, 17:15 TSH, (0.358-3.74) 1.31 uIU/mL 10/03/21, 10:28 COAG HCG, Quant, (1-3) 404 mIU/mL H 11/11/23, 09:49 Urine Test Negative Negative Today, 11:08 Pre-Assessment Diagnosis/Proposed Procedure Planned Operative Procedure(s): CSCOPE, EGD Anesthesia History Anesthesia History - jointer machine: Anesthesia History - jointer machine Hx Hospitalization No 05/19/25 12:23 Any Problems With Anesthesia No 05/19/25 12:23 Cholinesterase deficiency No 05/19/25 12:23 You/Your Family Experience No 05/19/25 12:23 fever (hyperthermia) with Relationship Recent Exposure to Contagious No 05/24/25 12:21 Disease Does patient have nerve No 05/19/25 12:23 stimulator Patient instructed to have device shut off --Does patient have Pacemaker No 05/24/25 12:21 or ICD? When Was Last Pacemaker Check QUESTION #4 FULL TEXT: You/Your Family Experience fever (hyperthermia) with Anesthesia Last Oral Intake Last Oral intake: Last Oral Intake NPO since 10:00 05/24/25 12:21 Meds taken in AM with sips of No 05/24/25 12:21 water? Meds patient instructed to take am of surgery PONV PONV - jointer machine: PONV - jointer machine Female Yes 05/19/25 12:23 HX of Motion Sickness No 05/19/25 12:23 HX of N/V After Surgery No 05/19/25 12:23 Non-Smoker Yes 05/19/25 12:23 Duration of Surgery greater No 05/19/25 12:23 than 60 minutes Number of Risk Factors 2 05/19/25 12:23 PONV Score Moderate Risk 05/19/25 12:23 Height & Weight Height & Weight: Anesthesia: Height & Weight Height 5 ft 8 in 05/24/25 12:21 Weight: 68 kg 05/24/25 12:21 Body Mass Index (BMI) 22.8 05/24/25 12:21 Respiratory Assessment Respiratory Assessment - jointer machine: Respiratory Tract Infection Hx - jointer machine Hx Respiratory Tract Infection No 05/19/25 12:23 STOP Sleep Apnea STOP Sleep Apnea - jointer machine: STOP Sleep Apnea - jointer machine Hx Hypertension No 05/19/25 12:23 Hx Sleep Apnea No 05/19/25 12:23 CPAP BIPAP Do you snore loudly (louder No 05/19/25 12:23 than talking or can be heard Do you often feel tired/ No 05/19/25 12:23 fatigued/ sleepy during daytime? Has anyone observed you stop No 05/19/25 12:23 breathing during sleep? STOP Results Negative 05/19/25 12:23 QUESTION #5 FULL TEXT : Do you snore loudly (louder than talking or can be heard through closed doors)? 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 Specify any problems Hx of Preganancy in last 3 N/A 05/19/25 12:23 Months Nurse Filling Out Transfusion NBUCHER 05/19/25 12:23 & Questions: Date: 05/19/25 05/19/25 12:23 Time: 12:24 05/19/25 12:23 Patient unable to answer at this time (ie. confused, unrespo /Reproduction History /Reproductive History - jointer machine: /Reproductive Hx- jointer machine Hx Now No 05/19/25 12:23 Gestational Age (in weeks): EDC: Hx Hx Para Hx Section SAB Yes 05/19/25 12:23 Active Medications Active Medications: Current Medications Generic Name Dose Route Start Last Admin Trade Name Freq PRN Reason Stop Dose Admin Lactated Ringer's 1,000 mls @ 15 mls/hr 05/24/25 12:15 05/24/25 12:31 IV 15 mls/hr .Q48H TERESA Administration PFSH Medical History Intractable abdominal pain Wears glasses Blackout Gastric reflux Non-smoker History of echocardiogram Gallbladder sludge Vomiting Nausea Abdominal pain Pre-eclampsia Encounter for induction of labor JORDAN (amniotic fluid index) borderline low Supervision of low-risk RSV (respiratory syncytial virus infection) Vaginal delivery Home Medications ?Medication ?Instructions ?Recorded ?Last Taken ?Type multivitamin no.47-iron fum 27 1 cap PO DAILY 12/01/23 05/22/25 History mg-folate no.1 1 mg-dha 300 mg capsule (PNV-DHA) cholecalciferol (vitamin D3) 125 125 mcg PO QDAY 08/1105/22/25 History mcg (5,000 unit) capsule Allergy/AdvReac Type Severity Reaction Status Date / Time No Known Allergies Allergy Verified 05/24/25 12:18 Family History Grandfather Lung cancer Surgical History History of esophagogastroduodenoscopy (EGD) H/O knee surgery Social History adopted: No household members: spouse and children number of children: 1 current occupational status: employed current occupation: [employer] pets and animals: Yes pets and animals: dog(s) history of recent travel: No sexually active: Yes Smoking Status: Never smoker alcohol intake: never details: not while substance use type: does not use well-balanced diet: daily or most days caffeine: No eating out: rarely or never during the past year weight has: decreased > 10 lbs what type of physical activity do you participate in: walking frequency: 3-4 times per week duration: 60-90 minutes/day esperanza/scientology: Evangel[employer] seatbelt use: always do you feel safe at home: Yes additional social history: - Elian Review of Systems (Anesthesia) ROS Narrative System reviewed and no additional complaints, except as documented.
--- NOTE | 2025-05-24 13:00 | COLBX_PTH ---
PATIENT: HIEU HERNANDEZ LOC: EN U#:[id number] AGE/SX: 29/F ROOM: RE05/24/[address]: Dr. Souleymane Lawler DO : 1995 BED: DIS: 05/24/2025 SPEC #: [id number] RECD: 05/25/25 07:16 STATUS: ORTEGA VASHTI #: [id number] KIRSTEN: 05/24/25 13:[address]: Souleymane Lawler DEPT: SURGICAL PATHOLOGY RECD BY: Amador Witt ENTERED: 05/25/25 07:53 SP TYPE: COLON BX OTHR DR: Justina Primary Care Phys Tissues: A - Ileum, NOS B - COLON BIOPSY Procedures: Surgery Specimen Level IV HEADER OPERATION: Colonoscopy, EGD, PH probe PRE-OP DIAGNOSIS: GERD TISSUE SUBMITTED: A- Terminal ileum biopsy, B- Random colon biopsy MICROSCOPIC DIAGNOSIS A. Terminal ileum, biopsy: * Acute inflammation. B. Colon, random, biopsy: * No specific pathologic change. * The histologic features of microscopic colitis are not demonstrated. MICROSCOPIC DESCRIPTION Slides are reviewed. GROSS DESCRIPTION A. Received in fixative is one container labeled with the patient's name and designated Terminal ileum biopsy. The specimen consists of three irregular fragments of hatfield tissue that measure 0.3 to 0.5 cm. The specimen is totally submitted in one cassette. B. Received in fixative is one container labeled with the patient's name and designated Random colon biopsy. The specimen consists of multiple irregular fragments of hatfield tissue that in aggregate measure 1.1 x 0.7 x 0.2 cm. The specimen is totally submitted in one cassette. IA 05/25/2025 CPT:70130f3
--- NOTE | 2025-05-24 13:45 | HP.PCM_ITS ---
HPI - General General Date of Admission: 05/24/25 Date of Service: 05/24/25 Chief Complaint: GERD HPI Narrative HIEU HERNANDEZ, is a 29 F who presents Chief Complaint: Abdominal pain Details: HIEU HERNANDEZ is a 29 F who presents to the office today for establishment. HIDA 2..; EF 58%, Gallbladder US .01.21; Mild biliary sludge but no definitive evidence for gallstones or acute cholecystitis CT abd 10.28.24 Minimal left pleural thickening. No other abnormality is seen. EGD 08.16.25 - No gross lesions in the first portion of the duodenum and in the second portion of the duodenum. Biopsied. - Nodular mucosa in the duodenal bulb. Biopsied. - Erythematous mucosa in the antrum. Biopsied. - Two gastric polyps. Resected and retrieved. - Multiple gastric polyps. Resected and retrieved. - Z-line irregular, 38 cm from the incisors. Biopsied. - Medium-sized hiatal hernia. No specimens collected. - Multiple plaques in the mid esophagus. Biopsied. WSA 08.22.25 for discussion of hiatal hernia, EOE and Barretts [facility] ED 10.13.24 with RUQ pain radiating to her back. Past workup of US, HIDA and EGD. OV 04.18.25 patient with continued right upper quadrant pain and reflux. Patient notes that during her first is when this started. She started having reflux and right upper quadrant 6 months in. Workup at that time was negative. After giving her symptoms resolved. She then got again and this has had similar symptoms. These lasted even after she gave . She has been seeing Dr. Willams who performed an EGD which showed a hiatal hernia Cisse's esophagus and EOE. She was started on a course of PPI which she did not feel helped. She continues with the right upper quadrant pain. It is mostly dull and achy. She is concerned about the Cisse's esophagus. [facility] Medical History Intractable abdominal pain Wears glasses Blackout Gastric reflux Non-smoker History of echocardiogram Gallbladder sludge Vomiting Nausea Abdominal pain Pre-eclampsia Encounter for induction of labor JORDAN (amniotic fluid index) borderline low Supervision of low-risk RSV (respiratory syncytial virus infection) Vaginal delivery Home Medications ?Medication ?Instructions ?Recorded ?Last Taken ?Type multivitamin no.47-iron fum 27 1 cap PO DAILY 12/01/23 05/22/25 History mg-folate no.1 1 mg-dha 300 mg capsule (PNV-DHA) cholecalciferol (vitamin D3) 125 125 mcg PO QDAY 08/1105/22/25 History mcg (5,000 unit) capsule Allergy/AdvReac Type Severity Reaction Status Date / Time No Known Allergies Allergy Verified 05/24/25 12:18 Family History Grandfather Lung cancer Surgical History History of esophagogastroduodenoscopy (EGD) H/O knee surgery Social History adopted: No household members: spouse and children number of children: 1 current occupational status: employed current occupation: [employer] - [employer] pets and animals: Yes pets and animals: dog(s) history of recent travel: No sexually active: Yes Smoking Status: Never smoker alcohol intake: never details: not while substance use type: does not use well-balanced diet: daily or most days caffeine: No eating out: rarely or never during the past year weight has: decreased > 10 lbs what type of physical activity do you participate in: walking frequency: 3-4 times per week duration: 60-90 minutes/day esperanza/spiritism: Buddhism seatbelt use: always do you feel safe at home: Yes additional social history: - Elian ROS Constitutional Constitutional: Denies fatigue, fever(s), poor appetite, weight gain or weight loss Gastrointestinal Gastrointestinal: Denies belching, bloating, change in bowel habits, change in stool character, chewing difficulty, coffee ground emesis, constipation, cramping, diarrhea, dyspepsia, dysphagia, early satiety, excessive flatus, fecal incontinence, heartburn, hematemesis, hematochezia, hemorrhoids, loose stools, melena, nausea, odynophagia, rectal bleeding, tenesmus, vomiting or weight changes Vital Signs Vital Signs Vital Signs: 05/24/25 12:21 05/24/25 12:21 05/24/25 12:42 Temperature 98.2 F 98.2 F Temperature Source Temporal Pulse Rate 88 88 Respiratory Rate 18 18 Respiratory Pattern Normal Blood Pressure 98/68 98/68 Blood Pressure Mean 78 Blood Pressure Source Monitor Blood Pressure Position Semi-Fowlers Blood Pressure Location Right Arm Pulse Ox 100 100 Oxygen Delivery Method Room Air Room Air Weight Weight: 149 lb 14.629 oz Body Mass Index (BMI) 22.8 Physical Exam Const alert, oriented x3, no apparent distress and healthy appearing General Appearance: cooperative GI normal to inspection, nondistended, normoactive bowel sounds, soft to palpation, non-tender and non-distended Percussion: normal to percussion Rectal Exam: deferred Results Lab / Micro Data Labs: Laboratory Results - last 24 hr 05/24/25 11:08: Urine Test Negative Assessment & Plan Assessment/Plan (1) Cisse's esophagus without dysplasia: (2) Eosinophilic esophagitis: (3) GERD (gastroesophageal reflux disease): PLAN: Assessment and Plan Assessment and Plan (1) Abdominal pain: Status: Acute Plan: There is a 29-year-old female patient here today after referral from general surgery for abdominal pain. Patient established with [facility] in 2023 during her when she was having reflux and right upper quadrant pain. She underwent gallbladder ultrasound which showed some biliary sludge. HIDA scan with ejection fraction 58%. EGD which showed a hiatal hernia, numerous fundic gland polyps, EOE and Cisse's esophagus. She was started on pantoprazole 40 mg twice a day for 12 weeks and budesonide oral solution. Plan was to repeat EGD with Lucas placement for surgical evaluation of her hiatal hernia however Dr. Willams referred to GI to rule out other gastrointestinal disorders. She will undergo repeat EGD with pH probe placement and colonoscopy. She was agreeable to proceed. Will refer back to Dr. Willams regarding hiatal hernia surgery. - EGD with Lucas - Colonoscopy -Consider continued treatment with PPI after pH probe placement - Follow-up after procedure - Follow-up with Dr. Willams regarding hiatal hernia surgery (2) Eosinophilic esophagitis: Status: Acute (3) Fundic gland polyps of stomach, benign: Status: Acute (4) Cisse's esophagus without dysplasia: Status: Acute
[2025-05-24] MEDS: Lactated Ringers 2,000 ML 2000 ML IV (14:18)
--- NOTE | 2025-05-24 14:46 | OP.PROVAT_ITS ---
05/24/2025 No Primary Care Physician Re : Upper GI endoscopy procedure for Samina Galeana Dear Care Physician This procedure was performed on Saturday, May 24, 2025. My impressions and recommendations are as follows: Impressions : - Esophageal mucosal changes secondary to eosinophilic esophagitis. - Hiatal hernia. - Normal examined duodenum. - The COLVIN pH capsule was deployed. - No specimens collected. Recommendations : - Discharge patient to home. - Resume previous diet. - Continue present medications. - Await pathology results. My findings are described in the full procedure note, which is enclosed. If I can be of further assistance, please feel free to contact me at . Sincerely, Souleymane Lawler, 05/24/2025 2:46:01 PM This report has been signed electronically.
--- NOTE | 2025-05-24 14:46 | OP.EGD_ITS ---
Patient Name: Samina Galeana Procedure Date: 05/24/2025 2:27 PM Date of : 1995 Age: 29 Procedure: Upper GI endoscopy Indications: Functional Dyspepsia, Dysphagia, Esophageal reflux Providers: Souleymane Lawler DO Referring MD: No Primary Care Physician Medicines: Monitored Anesthesia Care Patient Profile: This is a 29 year old female. Refer to note in patient chart for documentation of history and physical. Patient has symptoms of dysphagia with both liquids and solids, chronic heartburn and chronic nausea. Complications: No immediate complications. Procedure: Pre-Anesthesia Assessment: - Prior to the procedure, a History and Physical was performed, and patient medications and allergies were reviewed. The patient is competent. The risks and benefits of the procedure and the sedation options and risks were discussed with the patient. All questions were answered and informed consent was obtained. Patient identification and proposed procedure were verified by the physician in the pre-procedure area. Mental Status Examination: alert and oriented. Airway Examination: normal oropharyngeal airway and neck mobility. Respiratory Examination: clear to auscultation. CV Examination: normal. Prophylactic Antibiotics: The patient does not require prophylactic antibiotics. Prior Anticoagulants: The patient has taken no anticoagulant or antiplatelet agents except for NSAID medication. ASA Grade Assessment: II - A patient with mild systemic disease. After reviewing the risks and benefits, the patient was deemed in satisfactory condition to undergo the procedure. The anesthesia plan was to use monitored anesthesia care (MAC). Immediately prior to administration of medications, the patient was re-assessed for adequacy to receive sedatives. The heart rate, respiratory rate, oxygen saturations, blood pressure, adequacy of pulmonary ventilation, and response to care were monitored throughout the procedure. The physical status of the patient was re-assessed after the procedure. After obtaining informed consent, the endoscope was passed under direct vision. Throughout the procedure, the patient's blood pressure, pulse, and oxygen saturations were monitored continuously. The colonoscope was introduced through the mouth, and advanced to the second part of duodenum. The upper GI endoscopy was accomplished without difficulty. The patient tolerated the procedure well. Scope In: 2:14:49 PM Scope Out: 2:24:50 PM Total Procedure Duration Time 0 hours 10 minutes 1 second Findings: Mucosal changes including ringed esophagus, feline appearance, longitudinal furrows, small-caliber esophagus and white plaques were found in the entire esophagus. The COLVIN capsule with delivery system was introduced through the mouth and advanced into the esophagus, such that the COLVIN pH capsule was positioned 40 cm from the incisors, which was 6 cm proximal to the GE junction. The COLVIN pH capsule was then deployed and attached to the esophageal mucosa. The delivery system was then withdrawn. Endoscopy was utilized for probe placement and diagnostic evaluation. A hiatal hernia was present. No other significant abnormalities were identified in a careful examination of the stomach. The examined duodenum was normal. Impression: - Esophageal mucosal changes secondary to eosinophilic esophagitis. - Hiatal hernia. - Normal examined duodenum. - The COLVIN pH capsule was deployed. - No specimens collected. Recommendation: - Discharge patient to home. - Resume previous diet. - Continue present medications. - Await pathology results. Procedure Code(s): --- Professional --- 97590, Esophagogastroduodenoscopy, flexible, transoral; diagnostic, including collection of specimen(s) by brushing or washing, when performed (separate procedure) CPT copyright 2021 [employer]. All rights reserved. The codes documented in this report are preliminary and upon advance agent review may be revised to meet current compliance requirements. Souleymane Lawler DO 05/24/2025 2:46:01 PM This report has been signed electronically. Number of Addenda: 0 Note Initiated On: 05/24/2025 2:27 PM
--- NOTE | 2025-05-24 14:49 | OP.PROVAT_ITS ---
05/24/2025 No Primary Care Physician Re : Colonoscopy procedure for Samina Galeana Dear Care Physician This procedure was performed on Saturday, May 24, 2025. My impressions and recommendations are as follows: Impressions : - The entire examined colon is normal. Biopsied. - Congested mucosa in the terminal ileum. Biopsied. Recommendations : - Discharge patient to home. - Resume previous diet. - Continue present medications. - Await pathology results. - Repeat colonoscopy at age 45 for screening purposes. My findings are described in the full procedure note, which is enclosed. If I can be of further assistance, please feel free to contact me at . Sincerely, Souleymane Lawler, 05/24/2025 2:49:09 PM This report has been signed electronically.
--- NOTE | 2025-05-24 14:49 | OP.COLON_ITS ---
Patient Name: Samina Galeana Procedure Date: 05/24/2025 1:56 PM Date of : 1995 Age: 29 Procedure: Colonoscopy Indications: Generalized abdominal pain, Clinically significant diarrhea of unexplained origin Providers: Souleymane Lawler DO Referring MD: No Primary Care Physician Medicines: Monitored Anesthesia Care Patient Profile: This is a 29 year old female. Refer to note in patient chart for documentation of history and physical. Last Colonoscopy: none. The patient's first colonoscopy is today. Complications: No immediate complications. Procedure: Pre-Anesthesia Assessment: - Prior to the procedure, a History and Physical was performed, and patient medications and allergies were reviewed. The patient is competent. The risks and benefits of the procedure and the sedation options and risks were discussed with the patient. All questions were answered and informed consent was obtained. Patient identification and proposed procedure were verified by the physician in the pre-procedure area. Mental Status Examination: alert and oriented. Respiratory Examination: clear to auscultation. Prophylactic Antibiotics: The patient does not require prophylactic antibiotics. Prior Anticoagulants: The patient has taken no anticoagulant or antiplatelet agents. ASA Grade Assessment: II - A patient with mild systemic disease. After reviewing the risks and benefits, the patient was deemed in satisfactory condition to undergo the procedure. The anesthesia plan was to use monitored anesthesia care (MAC). Immediately prior to administration of medications, the patient was re-assessed for adequacy to receive sedatives. The heart rate, respiratory rate, oxygen saturations, blood pressure, adequacy of pulmonary ventilation, and response to care were monitored throughout the procedure. The physical status of the patient was re-assessed after the procedure. After I obtained informed consent, the scope was passed under direct vision. Throughout the procedure, the patient's blood pressure, pulse, and oxygen saturations were monitored continuously. The colonoscope was introduced through the anus and advanced to the terminal ileum. The colonoscopy was performed without difficulty. The patient tolerated the procedure well. The quality of the bowel preparation was adequate. The terminal ileum, ileocecal valve, appendiceal orifice, and rectum were photographed. Scope In: 2:31:08 PM Scope Withdrawal Time 0 hours 7 minutes 24 seconds Scope Out: 2:41:44 PM Total Procedure Duration Time 0 hours 10 minutes 36 seconds Findings: The perianal and digital rectal examinations were normal. The colon (entire examined portion) appeared normal. Biopsies for histology were taken with a cold forceps from the entire colon for evaluation of microscopic colitis. Verification of patient identification for the specimen was done. Estimated blood loss was minimal. A patchy area of the terminal ileum was congested. Biopsies were taken with a cold forceps for histology. Verification of patient identification for the specimen was done. Estimated blood loss was minimal. Impression: - The entire examined colon is normal. Biopsied. - Congested mucosa in the terminal ileum. Biopsied. Recommendation: - Discharge patient to home. - Resume previous diet. - Continue present medications. - Await pathology results. - Repeat colonoscopy at age 45 for screening purposes. Procedure Code(s): --- Professional --- 39986, Colonoscopy, flexible; with biopsy, single or multiple CPT copyright 2021 [employer]. All rights reserved. The codes documented in this report are preliminary and upon yarn skeins examiner review may be revised to meet current compliance requirements. Souleymane Lawler DO 05/24/2025 2:49:09 PM This report has been signed electronically. Number of Addenda: 0 Note Initiated On: 05/24/2025 1:56 PM
--- NOTE | 2025-05-24 14:50 | PCM.POST.ANE ---
Anesthesia: Postop Eval I Current Vital Signs Temperature: 98.4 F Pulse Rate: 96 Blood Pressure: 100/53 Respiratory Rate: 20 Pulse Ox: 99 Oxygen Delivery Method: Room Air Assessment Airway patent: Yes Spontaneous unlabored respirations: Yes Mental status: Awake and Calm nausea: No Vomiting: No Anesthesia Complication: No Fluid Hydration Crystalloid volume administer (ml): 1,200 Total IV fluid infused: 1,200 Progress Note Anesthesia document: Postop Eval 1 completed: Yes
--- NOTE | 2025-05-24 15:48 | POSTOPAN2_ITS ---
Anesthesia Postop Eval I Sum Postop Eval Completion status Anesthesia document: Postop Eval 1 completed: Yes Anesthesia Postop Eval I Summary Anesthesia Postop Eval I Summary: Anesthesia Postop Eval I: Assessment Summary Airway patent Yes 05/24/25 14:50 [email or web address] Spontaneous unlabored Yes 05/24/25 14:50 [email or web address] respirations Mental status Awake,Calm 05/24/25 14:50 [email or web address] nausea No 05/24/25 14:50 [email or web address] Vomiting No 05/24/25 14:50 [email or web address] Anesthesia Postop Eval I: Fluid Summary Crystalloid volume administer 1,200 05/24/25 14:50 [email or web address] (ml) Colloids volume administered ( ml) Blood Product volume administered (ml) Total IV fluid infused 1,200 05/24/25 14:50 [email or web address] Anesthesia Postop Eval I: Summary Notes Anesthesia Complication No 05/24/25 14:50 [email or web address] Anesthesia Complication Comment: Post-operative progress note Anesthesia: Postop Eval II Evaluation Mental status: Awake and Calm Pain Level: 1 nausea: No Vomiting: No Complications Anesthesia Complication: No
--- NOTE | 2025-05-24 15:48 | PCM.POSTANE2 ---
Anesthesia Postop Eval I Sum Postop Eval Completion status Anesthesia document: Postop Eval 1 completed: Yes Anesthesia Postop Eval I Summary Anesthesia Postop Eval I Summary: Anesthesia Postop Eval I: Assessment Summary Airway patent Yes 05/24/25 14:50 SENIOR DATA WAREHOUSE [email or web address] Spontaneous unlabored Yes 05/24/25 14:50 SENIOR DATA WAREHOUSE [email or web address] respirations Mental status Awake,Calm 05/24/25 14:50 SENIOR DATA WAREHOUSE [email or web address] nausea No 05/24/25 14:50 SENIOR DATA WAREHOUSE [email or web address] Vomiting No 05/24/25 14:50 SENIOR DATA WAREHOUSE [email or web address] Anesthesia Postop Eval I: Fluid Summary Crystalloid volume administer 1,200 05/24/25 14:50 SENIOR DATA WAREHOUSE [email or web address] (ml) Colloids volume administered ( ml) Blood Product volume administered (ml) Total IV fluid infused 1,200 05/24/25 14:50 SENIOR DATA WAREHOUSE [email or web address] Anesthesia Postop Eval I: Summary Notes Anesthesia Complication No 05/24/25 14:50 SENIOR DATA WAREHOUSE [email or web address] Anesthesia Complication Comment: Post-operative progress note Anesthesia: Postop Eval II Evaluation Mental status: Awake and Calm Pain Level: 1 nausea: No Vomiting: No Complications Anesthesia Complication: No
== END 2025-05-24 15:30 | disposition home or self-care (01) ==
LOC: EN 12:01 → AC 12:02
PROVIDERS: Anesthesiology; Visit Provider Internal Medicine Gastroenterology
PROC: 0DJD8ZZ Inspection of Lower Intestinal Tract, Via Natural or Artificial Opening Endoscopic (ICD-10-PCS; CPT 45378; principal; 2025-05-24 12:55)
DX: K21.00 Gastro-esophageal reflux disease with esophagitis, without bleeding (principal); K22.70 Barrett's esophagus without dysplasia; K44.9 Diaphragmatic hernia without obstruction or gangrene; R10.9 Unspecified abdominal pain; K31.7 Polyp of stomach and duodenum; K52.9 Noninfective gastroenteritis and colitis, unspecified
CPT/HCPCS: 45380; 43235; 81025; 88305

== ENCOUNTER → 2025-08-16 | Outpatient (CLI) | payer OTHER, SELFPAY ==
[2025-08-16 13:15] LABS: Creatinine, Urine (random) 147.00 mg/dL (28.00-217.00); Protein, Urine (Random) 10.7 mg/dL (0.0-12.0); Protein:Creat Ratio 73 mg/g CRE (0-200)
[2025-08-17 21:07] LABS: Chlamydia By Nucleic Acid AMP Negative (Negative); Gonococcus By Nucleic Acid AMP Negative (Negative)
== END | disposition home or self-care (01) ==
LOC: LABSPEC 12:24
PROVIDERS: Visit Provider Obstetrics & Gynecology
DX: O09.90 Supervision of high risk pregnancy, unspecified, unspecified trimester (principal); Z87.59 Personal history of other complications of pregnancy, childbirth and the puerperium; Z12.4 Encounter for screening for malignant neoplasm of cervix
CPT/HCPCS: 82570; 84156; 87077; 87086; 87088; 87186; 87491; 87591; 87624; 88175; G0145

== ENCOUNTER → 2025-08-21 | Outpatient (CLI) | payer OTHER, SELFPAY ==
[2025-08-21 12:52] LABS: Hematocrit 37.4 % (37-47); Hemoglobin 12.6 g/dL (12.0-15.0); Immature Granulocytes Count 0.030 X10^3/uL (0.0-0.0); Mean Corp Hgb Conc 33.7 g/dL (32-36); Mean Corpuscular Volume 88.4 fL (81-99); Mean Platelet Vol. 9.4 fl (6.2-12.0); NRBC Flagged by Analyzer 0 % (0-5); Platelet Count 316 K/mm3 (150-450); RBC Distribution Width CV 12.9 % (11.6-14.6); RBC Distribution Width SD 41.8 fl (35.1-43.9); Red Blood Count 4.23 M/mm3 (4.2-5.4); White Blood Count 10.1 K/mm3 (4.4-11.0)
[2025-08-21 13:46] LABS: AST(SGOT) 16 U/L (<=31); Alanine Aminotransfer ALT/SGPT 13 U/L (<=34); Albumin, Serum 4.4 g/dL (3.5-5.0); Alkaline Phosphatase 66 U/L (35-104); Anion Gap 15 (7-18); BUN 8 mg/dL (4-19); BUN/Creat Ratio 15.1 RATIO (10-20); Calcium,Total 9.4 mg/dL (7.6-11.0); Carbon Dioxide 20.6 mmol/L (20.0-29.0); Chloride 103 mmol/L (96-106); Globulin 2.8 g/dL (2.2-4.2); Glucose 76 mg/dL (70-99); HIV Nonreactive (Nonreactive); Hepatitis B Surface Antigen Nonreactive (Nonreactive); Hepatitis C Antibody Nonreactive (Nonreactive); Potassium 4.1 mmol/L (3.5-5.1); Syphilis Antibodies Nonreactive (Nonreactive)
== END | disposition home or self-care (01) ==
LOC: BWCLAB 11:22
PROVIDERS: Visit Provider Obstetrics & Gynecology
DX: O09.90 Supervision of high risk pregnancy, unspecified, unspecified trimester (principal); Z34.81 Encounter for supervision of other normal pregnancy, first trimester; Z31.82 Encounter for Rh incompatibility status
CPT/HCPCS: 36415; 80053; 85025; 86703; 86762; 86780; 86803; 86850; 86900; 86901; 87340